=== PATIENT | male | born 1940 | race Caucasian/White ===

== ENCOUNTER → 2016-08-15 | Outpatient (CLI) | payer BC ==
[~2016-08-15] MED LIST: MULT-506 PO
[2016-08-15 12:44] LABS: BASO % 0.7 %; BASO ABS # 0.04 K/uL (0-0.2); COMPLETE YES; EOS % 10.2 %; HEMATOCRIT 44.9 % (42-52); LYMPH % 36.5 %; LYMPH ABS # 2.01 K/uL (1.2-3.4); MEAN CELL VOLUME 93.2 fL (80-100); MEAN CORPUSCULAR HEMOGLOBIN 32.6 pg (25-34); MEAN PLATELET VOLUME 10.6 fL (7.4-10.4); MONO % 4.2 %; NEUT % 48.4 %; PLATELET COUNT 239 K/uL (130-400); RED BLOOD COUNT 4.82 M/uL (4.7-6.1); WHITE BLOOD COUNT 5.51 K/uL (4.8-10.8)
[2016-08-15 14:17] LABS: ALT/SGPT 26 U/L (12-78); AST/SGOT 19 U/L (15-37); BLOOD UREA NITROGEN 15 mg/dl (7-18); BUN/CREATININE RATIO 15.5 (10-20); CARBON DIOXIDE 30 mmol/L (21-32); CHLORIDE 107 mmol/L (98-107); CHOLESTEROL 216 mg/dl (0-200); CREATININE 0.99 mg/dl (0.60-1.40); GLUCOSE 90 mg/dl (70-99); MAGNESIUM 1.9 mg/dl (1.8-2.4); POTASSIUM 4.2 mmol/L (3.5-5.1); SODIUM 141 mmol/L (136-145); TRIGLYCERIDES 50 mg/dl (0-150); VERY LOW DENSITY LIPOPROT CALC 10 mg/dl
[2016-08-15 14:25] LABS: ALB/GLOB RATIO 1.1 (0.9-2); ALKALINE PHOSPHATASE 63 U/L (45-117); CHOLESTEROL/HDL RATIO 2.3; FERRITIN 83.6 ng/ml (8.0-388.0); HDL CHOLESTEROL 96 mg/dl; LDL CHOLESTEROL CALCULATED 110 mg/dl
--- NOTE | 2016-08-19 11:17 | CODING QUERY MEDICAL NECESSITY ---
CQSUPPORTING DIAGNOSIS NEEDED A supporting diagnosis is required for the test/procedure performed on this patient in order for us to be reimbursed by the patient's insurance. Please provide a supporting diagnosis for the following test/procedure listed below next to the test name along with your signature. *If there is no additional diagnosis for this patient that would support the following test/procedure please document that below next to the test/procedure. Test(s)/Procedure(s) that require a supporting diagnosis: DOS 08/15/16 VITAMIN D TEST VITAMIN B12 TEST Provider Signature: Date: Thank you Bhavani [facility] Once completed, please kindly fax back to [phone] For questions please call [phone]
== END | disposition home or self-care (01) ==
LOC: C.LAB1850 10:53
PROVIDERS: ATTEND Nurse Practitioner Family
DX: R53.83 Other fatigue (principal); Z13.1 Encounter for screening for diabetes mellitus; Z13.220 Encounter for screening for lipoid disorders; R01.1 Cardiac murmur, unspecified; R06.09 Other forms of dyspnea

== ENCOUNTER → 2016-11-04 | Outpatient (CLI) | payer BC | END | disposition home or self-care (01) | LOC: C.LAB1850 11:14 | PROVIDERS: ATTEND Nurse Practitioner Family | DX: E55.9 Vitamin D deficiency, unspecified (principal) ==

== ENCOUNTER → 2017-02-23 | Outpatient (CLI) | payer BC ==
--- NOTE | 2017-02-23 11:36 | DIAGNOSTIC IMAGING REPORT ---
L-SPINE MIN 4 VIEWS ROUTINE HISTORY: 76 years-old Male M54.5 Low back [id number] acute low back pain without reported trauma COMPARISON: Lumbar spine radiographs 07/30/2013 TECHNIQUE: 5 views of the lumbar spine FINDINGS: 5 lumbar type vertebral segments. No acute fracture or subluxation identified. 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 Multilevel endplate spurring. Alignment is satisfactory. There is atherosclerosis of the aorta. There is a 3 mm calcification noted within left upper abdomen which is unchanged and suspicious for possible nephrolithiasis. Surgical clips are present within the pelvis. IMPRESSION: 1. No acute fracture or subluxation of the lumbar spine. 2. Multilevel endplate spurring, discogenic degenerative changes and facet arthropathy, most pronounced at L4-L5 and L5-S1. 3. 3 mm calcification of the left upper abdomen may reflect nephrolithiasis. The above report was generated using voice recognition software. It may contain grammatical, syntax or spelling errors. Electronically signed by: Feliz Mark M.D. 02/23/2017 11:34 AM Dictated Date/Time: 02/23/2017 11:32 AM
--- NOTE | 2017-02-23 11:42 | DIAGNOSTIC IMAGING REPORT ---
CERVICAL SPINE 2 OR 3 VIEWS CLINICAL HISTORY: R20.0 Left upper extremity [id number] COMPARISON STUDY: 11/19/2012 FINDINGS: The prevertebral soft tissues are normal. No fractures or traumatic subluxations are visualized. There are mild to moderate multilevel degenerative changes. No destructive lesions are visualized on conventional radiographic imaging IMPRESSION: Mild to moderate degenerative change. No acute fractures or traumatic subluxations identified. Electronically signed by: Alfonso Colon M.D. 02/23/2017 11:40 AM Dictated Date/Time: 02/23/2017 11:39 AM
== END | disposition home or self-care (01) ==
LOC: C.RAD1850 11:02
PROVIDERS: ATTEND Nurse Practitioner Family
DX: R20.0 Anesthesia of skin (principal); M54.5 Low back pain; M89.8X8 Other specified disorders of bone, other site; M51.37 Other intervertebral disc degeneration, lumbosacral region

== ENCOUNTER → 2017-08-31 | Outpatient (CLI) | payer BC ==
[2017-08-31 12:25] LABS: BASO % 0.9 %; BASO ABS # 0.05 K/uL (0-0.2); EOS % 8.7 %; EOS ABS # 0.48 K/uL (0-0.5); HEMOGLOBIN 15.5 g/dL (14.0-18.0); IG# 0.01 K/uL (0.00-0.02); LYMPH % 45.6 %; LYMPH ABS # 2.52 K/uL (1.2-3.4); MEAN CELL VOLUME 94.1 fL (80-100); MEAN CORPUSCULAR HEMOGLOBIN 32.4 pg (25-34); MEAN CORPUSCULAR HGB CONC 34.4 g/dl (32-36); MEAN PLATELET VOLUME 9.7 fL (7.4-10.4); MONO % 4.3 %; MONO ABS # 0.24 K/uL (0.11-0.59); NEUT % 40.3 %; NEUT ABS # 2.23 K/uL (1.4-6.5); PLATELET COUNT 293 K/uL (130-400); RED CELL DISTRIBUTION WIDTH CV 13.9 % (11.5-14.5); RED CELL DISTRIBUTION WIDTH SD 47.8 fL (36.4-46.3); WHITE BLOOD COUNT 5.53 K/uL (4.8-10.8)
[2017-08-31 13:01] LABS: ALBUMIN 3.8 gm/dl (3.4-5.0); ALT/SGPT 28 U/L (12-78); AST/SGOT 18 U/L (15-37); BLOOD UREA NITROGEN 13 mg/dl (7-18); CARBON DIOXIDE 30 mmol/L (21-32); CREATININE 1.08 mg/dl (0.60-1.40); GLUCOSE 96 mg/dl (70-99); POTASSIUM 4.3 mmol/L (3.5-5.1); SODIUM 138 mmol/L (136-145)
[2017-08-31 13:10] LABS: ALKALINE PHOSPHATASE 64 U/L (45-117); CHOLESTEROL 246 mg/dl (0-200); LDL CHOLESTEROL CALCULATED 139 mg/dl; TOTAL PROTEIN 7.7 gm/dl (6.4-8.2)
== END | disposition home or self-care (01) ==
LOC: C.LAB1850 10:51
PROVIDERS: ATTEND Nurse Practitioner Family
DX: Z13.1 Encounter for screening for diabetes mellitus (principal); Z13.220 Encounter for screening for lipoid disorders; R01.1 Cardiac murmur, unspecified; E55.9 Vitamin D deficiency, unspecified

== ENCOUNTER 2021-07-05 14:08 | Observation (INO) ==
[2021-07-05 16:07] LABS: Basophils # (auto) 0.02 K/uL (0-0.2); Basophils % (auto) 0.2 %; Eosinophils # (auto) 0.01 K/uL (0-0.5); Eosinophils % (auto) 0.1 %; Hematocrit (blood only) 40.6 % (42-52); Hemoglobin 14.2 g/dL (14.0-18.0); Immature Granulocytes # (auto) 0.04 K/uL (0.00-0.02); Immature Granulocytes % (auto) 0.3 %; Lymphocytes % (auto) 9.9 %; Mean Corpuscular Hemoglobin 32.3 pg (25-34); Mean Corpuscular Volume 92.5 fL (80-100); Mean Platelet Volume 9.6 fL (7.4-10.4); Monocytes # (auto) 0.34 K/uL (0.11-0.59); Monocytes % (auto) 2.8 %; Neutrophils # (auto) 10.52 K/uL (1.4-6.5); Neutrophils % (auto) 86.7 %; Platelet Count 390 K/uL (130-400); RDW Coefficient of Variation 13.1 % (11.5-14.5); RDW Standard Deviation 44.1 fL (36.4-46.3); Red Blood Count 4.39 M/uL (4.7-6.1); White Blood Count 12.13 K/uL (4.8-10.8)
[2021-07-05] MEDS ORDERED: MECLIZINE HCL 25 MG TAB PO STA (16:07)
[2021-07-05] MEDS ORDERED: ONDANSETRON INJ 2 MG/ML 2 ML VIAL IV STA (16:07)
[2021-07-05] MEDS: SODIUM CHLORIDE 0.9% 1000ML 1,000 ML IV SCH ×2 (16:17→22:23)
--- NOTE | 2021-07-05 16:23 | Emergency Department Note ---
History of Present Illness General Chief complaint: Vertigo Time Seen by Provider: 07/05/21 15:47 Source: patient and family Mode of arrival: wheelchair Limitations: no limitations History of Present Illness Provider complaint: dizziness Onset (ago): hour(s) Treatments prior to arrival: none This is an 80-year-old male who presents emergency department complaining of dizziness. Patient states he woke up abruptly this morning with dizziness. He states it is worse with turning his head and movement. He states his needed to help him get up to the bathroom and also to get dressed. states she thought perhaps he was dehydrated so he tried to drink a few glasses of water and then had nausea and subsequent vomiting. Patient denies any accompanying headache or blurred vision. He denies any recent illness including fevers or chills. No change in bowel or bladder function. He denies chest pain, palpitations, shortness of breath, and abdominal pain. He denies any recent change in medications. Patient states he has previously had small episodes of dizziness in the past, none as severe as this. Patient describes the dizziness as a movement and sense of off balance. No recent trauma or change in activity. Pt seen during a time of high acuity and national emergency pandemic while wearing PPE. Home Medications Medication Instructions Recorded Confirmed Type cholecalciferol (vitamin D3) 50 4,000 unit PO DAILY cap 05/26/20 07/05/21 History mcg (2,000 unit) capsule umeclidinium 62.5 mcg-vilanterol 1 inh INHALATION DAILY #90 ea 05/04/21 07/05/21 Rx 25 mcg/actuation powdr for inhalation (Anoro Ellipta) albuterol sulfate 90 mcg/actuation 1 - 2 puff INH Q4H PRN #8.5 g 06/14/21 07/05/21 Rx aerosol inhaler (Ventolin HFA) meclizine 25 mg tablet 25 mg PO Q6H PRN #30 tab 07/06/21 Rx ondansetron 4 mg disintegrating 4 mg PO Q8H PRN 4 Days #12 tab 07/06/21 Rx tablet Allergies Allergy/AdvReac Type Severity Reaction Status Date / Time No Known Allergies Allergy Verified 07/05/21 14:46 Past Med/Surg History Medical History (Updated 07/07/21 @ 01:23 by Katrin Ramirez DO) Gastroesophageal reflux disease Heart murmur Prostate cancer Surgical History H/O prostatectomy Family History Brother Prostate cancer Father Myocardial infarction Mother Myocardial infarction Denies family history of Colon cancer Ovarian cancer Breast cancer Social History Smoking Status: Former smoker Age Started Using Tobacco: 16; Age Quit Using Tobacco: 48; packs per day: 1; Years Smoked: 30; Second Hand Exposure: No; Hx Alcohol Use: Yes Alcohol type: wine Hx Substance Use: No Preferred Language: Mac[place] Communication Ability: Effective Visual Impairment: No Limitations Hearing Ability: Normal Trade Analyst Required: No Beliefs That Will Affect Care: None marital status: Current Living Situation: Spouse current occupational status: retired Feels Safe at Home: Yes Childhood Exposure to Second-Hand Smoke: No Dental Care, Regularly: Yes Physical Activity Frequency: 1-2 Times per Week Seatbelt Use: sometimes Sunscreen Use: No Assistive Devices: Glasses Review of Systems A total of 10 systems reviewed and were otherwise negative All systems reviewed & are unremarkable except as noted in HPI & below Physical Exam Vital Signs Vital Signs - 24 hr 07/05/21 14:20 07/05/21 14:30 07/05/21 14:40 Temperature 36.3 C L Temperature Source Oral Pulse Rate 85 98 H 78 Pulse Rate from SpO2 Sensor 86 80 Respiratory Rate 20 23 12 Respiratory Effort / Characteristics Non-Labored Spontaneous Blood Pressure 173/93 H Blood Pressure Mean 119 Blood Pressure Position Sitting Pulse Oximetry 100 100 100 Oxygen Delivery Method Room Air Room Air Room Air Sepsis Recent Fever Within 48 Hours No Sepsis New/Unexplained Change in Mental Status No Sepsis Action Taken by Nursing No Action Required 07/05/21 14:50 07/05/21 15:00 07/05/21 15:10 Temperature Temperature Source Pulse Rate 70 74 69 Pulse Rate from SpO2 Sensor 71 72 69 Respiratory Rate 13 14 14 Respiratory Effort / Characteristics Blood Pressure Blood Pressure Mean Blood Pressure Position Pulse Oximetry 100 99 98 Oxygen Delivery Method Room Air Room Air Room Air Sepsis Recent Fever Within 48 Hours Sepsis New/Unexplained Change in Mental Status Sepsis Action Taken by Nursing 07/05/21 15:20 07/05/21 15:30 07/05/21 15:40 Temperature Temperature Source Pulse Rate 75 63 70 Pulse Rate from SpO2 Sensor 74 64 71 Respiratory Rate 18 19 17 Respiratory Effort / Characteristics Blood Pressure Blood Pressure Mean Blood Pressure Position Pulse Oximetry 97 99 97 Oxygen Delivery Method Room Air Room Air Room Air Sepsis Recent Fever Within 48 Hours Sepsis New/Unexplained Change in Mental Status Sepsis Action Taken by Nursing 07/05/21 15:50 07/05/21 15:53 07/05/21 15:55 Temperature Temperature Source Pulse Rate 81 80 76 Pulse Rate from SpO2 Sensor 81 80 79 Respiratory Rate 15 14 16 Respiratory Effort / Characteristics Blood Pressure 141/78 H 141/78 H Blood Pressure Mean 99 99 Blood Pressure Position Pulse Oximetry 98 98 98 Oxygen Delivery Method Room Air Sepsis Recent Fever Within 48 Hours Sepsis New/Unexplained Change in Mental Status Sepsis Action Taken by Nursing 07/05/21 16:00 07/05/21 16:10 07/05/21 16:15 Temperature Temperature Source Pulse Rate 84 78 75 Pulse Rate from SpO2 Sensor 85 77 81 Respiratory Rate 16 16 16 Respiratory Effort / Characteristics Blood Pressure 151/99 H Blood Pressure Mean 116 Blood Pressure Position Pulse Oximetry 98 98 98 Oxygen Delivery Method Room Air Room Air Sepsis Recent Fever Within 48 Hours Sepsis New/Unexplained Change in Mental Status Sepsis Action Taken by Nursing 07/05/21 16:20 07/05/21 16:30 07/05/21 16:40 Temperature Temperature Source Pulse Rate 76 73 78 Pulse Rate from SpO2 Sensor 77 75 78 Respiratory Rate 12 13 16 Respiratory Effort / Characteristics Blood Pressure 131/76 Blood Pressure Mean 94 Blood Pressure Position Pulse Oximetry 98 98 96 Oxygen Delivery Method Room Air Sepsis Recent Fever Within 48 Hours Sepsis New/Unexplained Change in Mental Status Sepsis Action Taken by Nursing 07/05/21 16:50 07/05/21 17:00 07/05/21 17:10 Temperature Temperature Source Pulse Rate 87 79 81 Pulse Rate from SpO2 Sensor 88 78 81 Respiratory Rate 20 18 16 Respiratory Effort / Characteristics Blood Pressure 118/80 Blood Pressure Mean 92 Blood Pressure Position Pulse Oximetry 97 98 95 Oxygen Delivery Method Sepsis Recent Fever Within 48 Hours Sepsis New/Unexplained Change in Mental Status Sepsis Action Taken by Nursing 07/05/21 17:34 07/05/21 17:35 07/05/21 17:40 Temperature Temperature Source Pulse Rate 95 H 90 88 Pulse Rate from SpO2 Sensor 91 H 87 Respiratory Rate 15 18 18 Respiratory Effort / Characteristics Blood Pressure 144/77 H Blood Pressure Mean 99 Blood Pressure Position Pulse Oximetry 98 97 98 Oxygen Delivery Method Room Air Sepsis Recent Fever Within 48 Hours Sepsis New/Unexplained Change in Mental Status Sepsis Action Taken by Nursing 07/05/21 17:50 07/05/21 18:00 07/05/21 18:10 Temperature Temperature Source Pulse Rate 83 86 87 Pulse Rate from SpO2 Sensor 84 87 86 Respiratory Rate 17 17 17 Respiratory Effort / Characteristics Blood Pressure 139/74 Blood Pressure Mean 95 Blood Pressure Position Pulse Oximetry 96 98 98 Oxygen Delivery Method Room Air Room Air Room Air Sepsis Recent Fever Within 48 Hours Sepsis New/Unexplained Change in Mental Status Sepsis Action Taken by Nursing 07/05/21 18:20 07/05/21 18:30 07/05/21 18:40 Temperature Temperature Source Pulse Rate 83 87 81 Pulse Rate from SpO2 Sensor 84 88 82 Respiratory Rate 15 16 16 Respiratory Effort / Characteristics Blood Pressure Blood Pressure Mean Blood Pressure Position Pulse Oximetry 96 99 96 Oxygen Delivery Method Room Air Room Air Room Air Sepsis Recent Fever Within 48 Hours Sepsis New/Unexplained Change in Mental Status Sepsis Action Taken by Nursing 07/05/21 18:50 07/05/21 19:00 07/05/21 19:10 Temperature Temperature Source Pulse Rate 80 79 85 Pulse Rate from SpO2 Sensor 81 80 85 Respiratory Rate 13 16 20 Respiratory Effort / Characteristics Blood Pressure 138/90 Blood Pressure Mean 106 Blood Pressure Position Pulse Oximetry 95 94 96 Oxygen Delivery Method Room Air Room Air Room Air Sepsis Recent Fever Within 48 Hours Sepsis New/Unexplained Change in Mental Status Sepsis Action Taken by Nursing 07/05/21 19:11 07/05/21 19:20 07/05/21 19:30 Temperature Temperature Source Pulse Rate 83 84 78 Pulse Rate from SpO2 Sensor 82 83 79 Respiratory Rate 16 14 14 Respiratory Effort / Characteristics Blood Pressure 138/90 Blood Pressure Mean 106 Blood Pressure Position Pulse Oximetry 98 94 94 Oxygen Delivery Method Sepsis Recent Fever Within 48 Hours Sepsis New/Unexplained Change in Mental Status Sepsis Action Taken by Nursing 07/05/21 19:40 07/05/21 19:50 07/05/21 20:00 Temperature Temperature Source Pulse Rate 82 78 82 Pulse Rate from SpO2 Sensor 82 79 81 Respiratory Rate 17 17 20 Respiratory Effort / Characteristics Blood Pressure Blood Pressure Mean Blood Pressure Position Pulse Oximetry 97 98 94 Oxygen Delivery Method Sepsis Recent Fever Within 48 Hours Sepsis New/Unexplained Change in Mental Status Sepsis Action Taken by Nursing 07/05/21 20:07 07/05/21 20:10 Temperature Temperature Source Pulse Rate 84 79 Pulse Rate from SpO2 Sensor 84 80 Respiratory Rate 16 21 Respiratory Effort / Characteristics Blood Pressure 164/97 H Blood Pressure Mean 119 Blood Pressure Position Pulse Oximetry 98 98 Oxygen Delivery Method Sepsis Recent Fever Within 48 Hours Sepsis New/Unexplained Change in Mental Status Sepsis Action Taken by Nursing GENERAL: alert, well appearing, well nourished, no distress, non-toxic EYE EXAM: normal conjunctiva, PERRL and EOM's grossly intact, cannot tolerate testing for nystagmus OROPHARYNX: no exudate, no erythema, lips, buccal mucosa, and tongue normal and mucous membranes are moist NECK: supple, no nuchal rigidity, no adenopathy, non-tender LUNGS: Clear to auscultation. Normal chest wall mechanics, no w/r/r HEART: no murmurs, S1 normal and S2 normal ABDOMEN: abdomen soft, non-tender, normo-active bowel sounds, no masses, no rebound or guarding. BACK: Back is symmetrical on inspection and there is no deformity, no midline tenderness, no CVA tenderness. SKIN: no rashes and no bruising UPPER EXTREMITIES: upper extremities are grossly normal. FROM, nml pulses b/l. LOWER EXTREMITIES: No pitting edema. FROM, nml pulses b/l. NEURO EXAM: Normal sensorium, cranial nerves II-XII grossly intact, normal speech, no gross weakness of arms, no gross weakness of legs. Gross sensation intact. Course Course 182: Patient updated on all results. Magnesium and IV fluids still infusing. Will try p.o. challenge and eventually ambulatory trial. 2015: Patient unable to even stand at bedside without becoming ataxic with recurrent worsening dizziness. Do not feel patient could be safely discharged at this time as patient's describes they have many steps to go in the house. UA still pending. Administered Medications Discontinued Medications Gabapentin (Gabapentin 100 Mg Cap) 100 mg PO NOW STA Stop: 07/05/21 19:07 Last Admin: 07/05/21 19:47 Dose: 100 mg Documented by: [id number] Sodium Chloride (Nss 1000ml) 1,000 mls @ 200 mls/hr IV .Q5H CHRISTINA Stop: 08/04/21 16:14 Last Infusion: 07/05/21 22:39 Dose: 0 mls/hr Documented by: [id number] Admin: 07/05/21 22:23 Dose: 200 mls/hr Documented by: [id number] Infusion: 07/05/21 21:55 Dose: 0 mls/hr Documented by: [id number] Infusion: 07/05/21 18:12 Dose: 200 mls/hr Documented by: [id number] Infusion: 07/05/21 17:57 Dose: 0 mls/hr Documented by: [id number] Admin: 07/05/21 16:17 Dose: 200 mls/hr Documented by: [id number] Magnesium Sulfate/Dextrose (Magnesium Sulfate / D5w) 1 gm in 100 mls @ 100 mls/hr IV NOW STA Stop: 07/05/21 18:18 Last Infusion: 07/05/21 19:09 Dose: 0 mls/hr Documented by: [id number] Infusion: 07/05/21 18:12 Dose: 100 mls/hr Documented by: [id number] Infusion: 07/05/21 17:57 Dose: 0 mls/hr Documented by: [id number] Admin: 07/05/21 17:52 Dose: 100 mls/hr Documented by: [id number] Ioversol (Optiray 320 125ml) 120 ml IV ONCE ONE Stop: 07/05/21 17:40 Last Admin: 07/05/21 17:39 Dose: 120 ml Documented by: [id number] Meclizine HCl (Meclizine Hcl 25 Mg Tab) 25 mg PO NOW STA Stop: 07/05/21 16:08 Last Admin: 07/05/21 16:15 Dose: 25 mg Documented by: [id number] Ondansetron HCl (Ondansetron Inj 2 Mg/Ml 2 Ml Vial) 4 mg IV NOW STA Stop: 07/05/21 16:08 Last Admin: 07/05/21 16:16 Dose: 4 mg Documented by: [id number] Umeclidinium/Vilanterol (Umeclidinium/Vilanterol 62.5/25mcg 7 Puffs/Inhaler) 1 puffs INH DAILY CHRISTINA Stop: 08/05/21 08:59 Last Admin: 07/06/21 09:07 Dose: 1 puffs Documented by: [id number] Vitamin D (Cholecalciferol 1,000 Units 25 Mcg Tab) 4,000 units PO DAILY CHRISTINA Stop: 08/05/21 08:59 Last Admin: 07/06/21 09:07 Dose: 4,000 units Documented by: [id number] Medical Decision Making Differential Diagnosis Differential diagnosis includes etiologies such as benign positional vertigo, dehydration, hypovolemia, anemia, tumor, infection, hypoglycemia, electrolyte abnormalities, cardiac sources, intracerebral event, toxicologic, neurologic, as well as others were entertained. Medical Records Attestation: I reviewed the patient's medical records. Home Medications Current Medication List: was personally reviewed by me Laboratory Data Attestation: I reviewed the patient's lab results. Result diagrams: 07/06/21 07:08 07/06/21 07:08 Lab Results 07/05/21 07/05/21 07/05/21 Range/Units 15:50 15:50 15:50 WBC 12.13 H (4.8-10.8) K/uL RBC 4.39 L (4.7-6.1) M/uL Hgb 14.2 (14.0-18.0) g/dL Hct 40.6 L (42-52) % MCV 92.5 (80-100) fL MCH 32.3 (25-34) pg MCHC 35.0 (32-36) g/dL RDW Std Deviation 44.1 (36.4-46.3) fL RDW Coeff of Mathew 13.1 (11.5-14.5) % Plt Count 390 (130-400) K/uL MPV 9.6 (7.4-10.4) fL Immature Gran % (Auto) 0.3 % Neut % (Auto) 86.7 % Lymph % (Auto) 9.9 % [place] % (Auto) 2.8 % Eos % (Auto) 0.1 % Baso % (Auto) 0.2 % Neut # (Auto) 10.52 H (1.4-6.5) K/uL Lymph # (Auto) 1.20 (1.2-3.4) K/uL [place] # (Auto) 0.34 (0.11-0.59) K/uL Eos # (Auto) 0.01 (0-0.5) K/uL Baso # (Auto) 0.02 (0-0.2) K/uL Immature Gran # (Auto) 0.04 H (0.00-0.02) K/uL Sodium 136 (136-145) mmol/L Potassium 4.4 (3.5-5.1) mmol/L Chloride 101 (98-107) mmol/L Carbon Dioxide 27 (21-32) mmol/L Anion Gap 8 (3-11) BUN 15 (6-23) mg/dl Creatinine 0.95 (0.6-1.4) mg/dl Est Cr Clr Drug Dosing 63.9 ml/min Est GFR ( Amer) 86.1 ml/min Est GFR (Non-Af Amer) 74.2 ml/min BUN/Creatinine Ratio 15.8 (10-20) Glucose 105 H (70-99(Fasting)) mg/dl Calcium 9.9 (8.5-10.1) mg/dl Magnesium 1.6 L Cancelled (1.7-2.4) mg/dl Total Bilirubin 0.4 (0.2-1.0) mg/dl AST 14 (13-39) U/L ALT 12 (7-52) U/L Alkaline Phosphatase 68 (34-104) U/L Troponin I < 0.03 Cancelled (0-0.04) ng/ml Total Protein 7.0 (6.0-8.3) gm/dl Albumin 3.7 (3.4-5.0) gm/dl Globulin 3.3 (2.5-4.0) gm/dl Albumin/Globulin Ratio 1.1 (0.9-2) TSH (0.300-4.500) uIu/ml Urine Color Urine Appearance (Clear) Urine pH (4.5-7.5) Ur Specific [place] (1.000-1.030) Urine Protein (Negative) Urine Glucose (UA) (Negative) Urine Ketones (Negative) Urine Blood (Negative) Urine Nitrite (Negative) Urine Bilirubin (Negative) Urine Urobilinogen (Negative) Ur Leukocyte Esterase (Negative) SARS-CoV-2, RNA, NAAT (NEGATIVE) 07/05/21 07/05/21 07/05/21 Range/Units 15:50 20:17 20:25 WBC (4.8-10.8) K/uL RBC (4.7-6.1) M/uL Hgb (14.0-18.0) g/dL Hct (42-52) % MCV (80-100) fL MCH (25-34) pg MCHC (32-36) g/dL RDW Std Deviation (36.4-46.3) fL RDW Coeff of Mathwe (11.5-14.5) % Plt Count (130-400) K/uL MPV (7.4-10.4) fL Immature Gran % (Auto) % Neut % (Auto) % Lymph % (Auto) % [place] % (Auto) % Eos % (Auto) % Baso % (Auto) % Neut # (Auto) (1.4-6.5) K/uL Lymph # (Auto) (1.2-3.4) K/uL [place] # (Auto) (0.11-0.59) K/uL Eos # (Auto) (0-0.5) K/uL Baso # (Auto) (0-0.2) K/uL Immature Gran # (Auto) (0.00-0.02) K/uL Sodium (136-145) mmol/L Potassium (3.5-5.1) mmol/L Chloride (98-107) mmol/L Carbon Dioxide (21-32) mmol/L Anion Gap (3-11) BUN (6-23) mg/dl Creatinine (0.6-1.4) mg/dl Est Cr Clr Drug Dosing ml/min Est GFR ( Amer) ml/min Est GFR (Non-Af Amer) ml/min BUN/Creatinine Ratio (10-20) Glucose (70-99(Fasting)) mg/dl Calcium (8.5-10.1) mg/dl Magnesium (1.7-2.4) mg/dl Total Bilirubin (0.2-1.0) mg/dl AST (13-39) U/L ALT (7-52) U/L Alkaline Phosphatase (34-104) U/L Troponin I (0-0.04) ng/ml Total Protein (6.0-8.3) gm/dl Albumin (3.4-5.0) gm/dl Globulin (2.5-4.0) gm/dl Albumin/Globulin Ratio (0.9-2) TSH 1.050 (0.300-4.500) uIu/ml Urine Color Yellow Urine Appearance Clear (Clear) Urine pH 6.5 (4.5-7.5) Ur Specific [place] > 1.045 H (1.000-1.030) Urine Protein Negative (Negative) Urine Glucose (UA) Negative (Negative) Urine Ketones 1+ H (Negative) Urine Blood Negative (Negative) Urine Nitrite Negative (Negative) Urine Bilirubin Negative (Negative) Urine Urobilinogen Negative (Negative) Ur Leukocyte Esterase Negative (Negative) SARS-CoV-2, RNA, NAAT NEGATIVE (NEGATIVE) Imaging Data Radiologist's Impression: Chest X-Ray 07/05/21 16:07 XR chest 1V portable CLINICAL HISTORY: cough TECHNIQUE: Single frontal radiograph of the chest was obtained. Comparison: Comparison is made to chest 2 views 10/16/2020 FINDINGS: No lines and tubes are seen. The cardiomediastinal silhouette is normal. The lungs are clear. No evidence of pleural effusion or pneumothorax. IMPRESSION: No acute chest disease. ACT 112: Negative or not required by law. Electronically signed by: Julián Laguerre M.D. 07/05/2021 4:[address] 07/05/21 16:07 CT angio neck with con, CT angio head w con, CT head/brain wo con CLINICAL HISTORY: dizzy, n/v, recent neck pain TECHNIQUE: Contiguous axial CT images of the head were acquired from the base of the skull to the vertex without intravenous contrast administration. CT angiography of the head and neck was performed following intravenous administration of iodinated contrast. Coronal and sagittal MIPS were obtained from the axial data set and were submitted for review. Automated dose lowering techniques and/or adjustment according to patient size were utilized for this examination. All measurements were calculated based on NASCET criteria. Comparison: None available at the time of this dictation. FINDINGS: CT head: There is no acute intracranial hemorrhage or evidence of acute territorial infarction. No shift of the midline structures, mass effect, or extra-axial abnormalities are shown. 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 Opacification of multiple frontal, ethmoid, and maxillary air cells noted. Small thyroid nodules are seen which do not require follow-up by ACR criteria. CTA Neck: A 3 vessel aortic arch is shown. There is no significant atherosclerotic plaque in the aortic arch or the origins of the innominate, left common carotid, and left subclavian arteries. The common carotid, external carotid, cervical segments of the internal carotid arteries, and the cervical segments of the vertebral arteries are patent without hemodynamically significant stenosis. The vertebral arteries are codominant. CTA Head: The anterior and posterior cerebral circulations are patent. No hemodynamically significant stenosis, aneurysm, dissection, or arteriovenous malformation is shown. origin of the right posterior cerebral artery is seen. IMPRESSION: 1. No acute intracranial hemorrhage, evidence of acute territorial infarction, or other acute intracranial disease process. 2. No occlusion, hemodynamically significant stenosis, aneurysm, dissection, or arteriovenous malformation in the major intracranial arteries. 3. No occlusion, hemodynamically significant stenosis, or dissection in the major cervical arteries. Assessment of stenosis of the internal carotid arteries is based on NASCET criteria. ACT 112: Negative or not required by law. Electronically signed by: Julián Laguerre M.D. 07/05/2021 6:06 PM Head CTA 07/05/21 16:07 CT angio neck with con, CT angio head w con, CT head/brain wo con CLINICAL HISTORY: dizzy, n/v, recent neck pain TECHNIQUE: Contiguous axial CT images of the head were acquired from the base of the skull to the vertex without intravenous contrast administration. CT angiography of the head and neck was performed following intravenous administration of iodinated contrast. Coronal and sagittal MIPS were obtained from the axial data set and were submitted for review. Automated dose lowering techniques and/or adjustment according to patient size were utilized for this examination. All measurements were calculated based on NASCET criteria. Comparison: None available at the time of this dictation. FINDINGS: CT head: There is no acute intracranial hemorrhage or evidence of acute territorial infarction. No shift of the midline structures, mass effect, or extra-axial abnormalities are shown. Old lacunar infarct is seen in the left bas al ganglia. Opacification of multiple frontal, ethmoid, and maxillary air cells noted. Small thyroid nodules are seen which do not require follow-up by ACR criteria. CTA Neck: A 3 vessel aortic arch is shown. There is no significant atherosclerotic plaque in the aortic arch or the origins of the innominate, left common carotid, and left subclavian arteries. The common carotid, external carotid, cervical segments of the internal carotid arteries, and the cervical segments of the vertebral arteries are patent without hemodynamically signific ant stenosis. The vertebral arteries are codominant. CTA Head: The anterior and posterior cerebral circulations are patent. No hemodynamically significant stenosis, aneurysm, dissection, or arteriovenous malformation is shown. origin of the right posterior cerebral artery is seen. IMPRESSION: 1. No acute intracranial hemorrhage, evidence of acute territorial infarction, or other acute intracranial disease process. 2. No occlusion, hemodynamically significant stenosis, aneurysm, dissection, or arteriovenous malformation in the major intracranial arteries. 3. No occlusion, hemodynamically significant stenosis, or dissection in the major cervical arteries. Assessment of stenosis of the internal carotid arteries is based on NASCET criteria. ACT 112: Negative or not required by law. Electronically signed by: Julián Laguerre M.D. 07/05/2021 6:06 PM Neck CTA 07/05/21 16:07 CT angio neck with con, CT angio head w con, CT head/brain wo con CLINICAL HISTORY: dizzy, n/v, recent neck pain TECHNIQUE: Contiguous axial CT images of the head were acquired from the base of the skull to the vertex without intravenous contrast administration. CT angiography of the head and neck was performed following intravenous administration of iodinated contrast. Coronal and sagittal MIPS were obtained from the axial data set and were submitted for review. Automated dose lowering techniques and/or adjustment according to patient size were utilized for this examination. All measurements were calculated based on NASCET criteria. Comparison: None available at the time of this dictation. FINDINGS: CT head: There is no acute intracranial hemorrhage or evidence of acute territorial infarction. No shift of the midline structures, mass effect, or extra-axial abnormalities are shown. 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 Opacification of multiple frontal, ethmoid, and maxillary air cells noted. Small thyroid nodules are seen which do not require follow-up by ACR criteria. CTA Neck: A 3 vessel aortic arch is shown. There is no significant atherosclerotic plaque in the aortic arch or the origins of the innominate, left common carotid, and left subclavian arteries. The common carotid, external carotid, cervical segments of the internal carotid arteries, and the cervical segments of the vertebral arteries are patent without hemodynamically significant stenosis. The vertebral arteries are codominant. CTA Head: The anterior and posterior cerebral circulations are patent. No hemodynamically significant stenosis, aneurysm, dissection, or arteriovenous malformation is shown. origin of the right posterior cerebral artery is seen. IMPRESSION: 1. No acute intracranial hemorrhage, evidence of acute territorial infarction, or other acute intracranial disease process. 2. No occlusion, hemodynamically significant stenosis, aneurysm, dissection, or arteriovenous malformation in the major intracranial arteries. 3. No occlusion, hemodynamically significant stenosis, or dissection in the major cervical arteries. Assessment of stenosis of the internal carotid arteries is based on NASCET criteria. ACT 112: Negative or not required by law. Electronically signed by: Julián Laguerre M.D. 07/05/2021 6:06 PM ECG Data Attestation: I personally reviewed and interpreted this ECG as follows: Indication: + other Rate (beats per minute): 78 Rhythm: + normal sinus ECG Intervals/blocks: + Right Bundle branch block and + Normal QT ECG [place]: + Normal ECG ST segments: + Nonspecific ST abnormalities MDM Narrative This is an 80-year-old male who presents emergency department complaining of abrupt onset dizziness. No other focal neurologic deficits, difficulty assessing for nystagmus this patient with significant dizziness with any head movement and even with moving his eyes. Patient was afebrile and hemodynamically stable, mild hypertension was noted. Given age and comor bidities, labs are drawn and sent and patient sent for CT imaging. No evidence of acute pathology on labs or imaging. Patient was hydrated, mild hypomagnesemia was repleted, patient given Zofran as well as meclizine. Patient did report feeling improved, he was unable to stand at bedside without obvious ataxia and worsening symptoms again. Given concern for patient safety as he lives at home with his and there are multiple steps, we did discuss additional inpatient monitoring and management. Patient and verbalized understanding of all results and were in agreement with plan. Case discussed with the hospitalist. At this time I do not suspect other acute [employer] pathology. I suspect this is more likely related to BPPV at this point. An order was placed for continuous cardiac monitoring. The monitor shows a rate of _66_ with _normal sinus_ rhythm. Impression & Plan Dizziness, Hypertension, Hypomagnesemia Discharge Plan Visit Data Chief Complaint: Vertigo ED Provider: Katrin Ramirez Discharge Problem: Dizziness, Hypertension, Hypomagnesemia Patient Disposition: Admitted As Inpatient Discharge Instructions Interventions: ED Discharge Assessment Last Done: 07/05/21 22:04 Discharge Problem: Hypertension Qualifiers: Hypertension type: primary hypertension Qualified Code(s): I10 - Essential (primary) hypertension
[2021-07-05 16:44] LABS: Troponin I < 0.03 ng/ml (0-0.04)
--- NOTE | 2021-07-05 16:58 | XRay Report ---
XR chest 1V portable CLINICAL HISTORY: cough TECHNIQUE: Single frontal radiograph of the chest was obtained. Comparison: Comparison is made to chest 2 views 10/16/2020 FINDINGS: No lines and tubes are seen. The cardiomediastinal silhouette is normal. The lungs are clear. No evid ence of pleural effusion or pneumothorax. IMPRESSION: No acute chest disease. ACT 112: Negative or not required by law. Electronically signed by: Julián Laguerre M.D. 07/05/2021 4:57 PM
[2021-07-05 17:06] LABS: Alanine Aminotransferase 12 U/L (7-52); Albumin Globulin Ratio 1.1 (0.9-2); Albumin Level 3.7 gm/dl (3.4-5.0); Alkaline Phosphatase 68 U/L (34-104); Anion Gap 8 (3-11); Aspartate Aminotransferase 14 U/L (13-39); BUN Creatinine Ratio 15.8 (10-20); Bilirubin,Total 0.4 mg/dl (0.2-1.0); Blood Urea Nitrogen 15 mg/dl (6-23); Calcium 9.9 mg/dl (8.5-10.1); Carbon Dioxide 27 mmol/L (21-32); Chloride 101 mmol/L (98-107); Creatinine Clr Calc Pharmacy 63.9 ml/min; Est GFR (African American) 86.1 ml/min; Est GFR (Non-African American) 74.2 ml/min; Globulin 3.3 gm/dl (2.5-4.0); Glucose 105 mg/dl (70-99(Fasting)); Magnesium 1.6 mg/dl (1.7-2.4); Potassium 4.4 mmol/L (3.5-5.1); Sodium 136 mmol/L (136-145)
[2021-07-05] MEDS ORDERED: MAGNESIUM SULFATE / D5W 1 GM/100 ML BAG IV STA (17:19)
[2021-07-05] MEDS ORDERED: OPTIRAY 320 125ml IV ONE (17:39)
--- NOTE | 2021-07-05 18:07 | CT Scan Report ---
CT angio neck with con, CT angio head w con, CT head/brain wo con CLINICAL HISTORY: dizzy, n/v, recent neck pain TECHNIQUE: Contiguous axial CT images of the head were acquired from the base of the skull to the jd claudia without intravenous contrast administration. CT angiography of the head and neck was performed f ollowing intravenous administration of iodinated contrast. Coronal and sagittal MIPS were obtained fr om the axial data set and were submitted for review. Automated dose lowering techniques and/or adjus tment according to patient size were utilized for this examination. All measurements were calculated based on NASCET criteria. Comparison: None available at the time of this dictation. FINDINGS: CT head: There is no acute intracranial hemorrhage or evidence of acute territorial infarction. No sh ift of the midline structures, mass effect, or extra-axial abnormalities are shown. Old lacunar infar ct is seen in the left basal ganglia. Opacification of multiple frontal, ethmoid, and maxillary air c ells noted. Small thyroid nodules are seen which do not require follow-up by ACR criteria. CTA Neck: A 3 vessel aortic arch is shown. There is no significant atherosclerotic plaque in the aor tic arch or the origins of the innominate, left common carotid, and left subclavian arteries. The c ommon carotid, external carotid, cervical segments of the internal carotid arteries, and the cervical segments of the vertebral arteries are patent without hemodynamically significant stenosis. The vert ebral arteries are codominant. CTA Head: The anterior and posterior cerebral circulations are patent. No hemodynamically significan t stenosis, aneurysm, dissection, or arteriovenous malformation is shown. origin of the right p osterior cerebral artery is seen. IMPRESSION: 1. No acute intracranial hemorrhage, evidence of acute territorial infarction, or other acute intrac ranial disease process. 2. No occlusion, hemodynamically significant stenosis, aneurysm, dissection, or arteriovenous malfor mation in the major intracranial arteries. 3. No occlusion, hemodynamically significant stenosis, or dissection in the major cervical arteries. Assessment of stenosis of the internal carotid arteries is based on NASCET criteria. ACT 112: Negative or not required by law. Electronically signed by: Julián Laguerre M.D. 07/05/2021 6:06 PM
[2021-07-05] MEDS ORDERED: GABAPENTIN 100 MG CAP PO STA (19:06)
[2021-07-05 20:37] LABS: Appearance Urine Clear (Clear); Bilirubin Urine Negative (Negative); Blood Urine Negative (Negative); Color Urine Yellow; Glucose Urine UA Negative (Negative); Ketones Urine 1+ (Negative); Leukocyte Esterase Urine Negative (Negative); Nitrite Urine Negative (Negative); Protein Urine Negative (Negative); Specific Gravity Urine > 1.045 (1.000-1.030); Urobilinogen Urine Negative (Negative); pH Urine 6.5 (4.5-7.5)
--- NOTE | 2021-07-05 20:47 | History & Physical Report ---
Date of Service July 05, 2021 Assessment & Plan (1) Dizziness: Plan: Luis Kemp is a 80yo male with PMHx significant for moderate COPD (FEV1 56% in 10/2018), HTN and GERD who presented to [facility] ED on 07/05 for acute-onset vertigo. Will be admitted on observation, pending improvement in ambulatory status. Vertigo With associated nausea/vomiting. Without focal neurological deficits, and extensive head/neck imaging negative for stroke. Given severity and duration of symptoms, in addition to presence of symptoms even when lying still, suspect Meniere's disease rather than BPPV. - s/p Meclizine x1 in ED with significant improvement in symptoms - ordered Meclizine 25mg PO Q6H PRN - encourage PO intake ad stephanie - currently tolerating fluids without N/V - PRN Zofran for nausea - PT/OT evals ordered Hypomagnesemia Mg 1.6 in ED, may have contributed to vertigo. - s/p Mg 1g IV x1 in the ED - trend in the AM Moderate COPD - continue home Anoro Ellipta Heart Murmur Systolic ejection murmur at right sternal border suspicious for . S2 auscultated, and patient is asymptomatic, so suspect mild . PCP already aware. - f/u with PCP if becomes symptomatic FEN/GI: regular diet DVT Prophylaxis: SCDs Code Status: full code Disposition: med/surg, can likely go home once returns to baseline ambulatory status (2) COPD (chronic obstructive pulmonary disease): (3) Heart murmur: (4) Hypertension: History of Present Illness Chief Complaint: dizziness Primary Care Provider: Andre Butcher, III, [facility] Luis Kemp is a 80yo male with PMHx significant for moderate COPD (FEV1 56% in 10/2018), HTN and GERD who presented to [facility] ED on 07/05 for acute-onset dizziness when waking up this morning. Dizziness worsening with turning head and movement. Tried to drink water but had nausea/vomiting. Denies headache or blurred vision. No focal weakness/numbness/tingling or speech deficit. No recent illnesses. No fever/chills. No recent changes in medications. Has had several episodes of dizziness similar in character to this episode albeit not as severe or persistent. In the ED patient was hypertensive to 173/93 but afebrile and hemodynamically stable on room air. Laboratory evaluation significant for WBC 12.13 with neutrophilic predominance and mild L shift and Mg 1.6. CBC/CMP otherwise unremarkable. EKG with new RBBB but troponin negative. TSH WNL. CXR without acute cardiopulmonary process. CT head and CTA head/neck were unremarkable. Patient was given Zofran 4mg IV x1 for nausea, Meclizine 25mg PO x1 for vertigo, and Magnesium 1g IV x1. Also was given Gabapentin 100mg PO x1. Dizziness is now resolved while supine but does recur with mild severity when tries to sit up. Still cannot stand up without feeling extremely dizzy. Nausea resolved with Zofran and he has been drinking water without issues. Still does not have full appetite. Allergies Allergy/AdvReac Type Severity Reaction Status Date / Time No Known Allergies Allergy Verified 07/05/21 14:46 Home Medications Medication Instructions Recorded Confirmed Type cholecalciferol (vitamin D3) 50 4,000 unit PO DAILY cap 05/26/20 07/05/21 History mcg (2,000 unit) capsule umeclidinium 62.5 mcg-vilanterol 1 inh INHALATION DAILY #90 ea 05/04/21 07/05/21 Rx 25 mcg/actuation powdr for inhalation (Anoro Ellipta) albuterol sulfate 90 mcg/actuation 1 - 2 puff INH Q4H PRN #8.5 g 06/14/21 07/05/21 Rx aerosol inhaler (Ventolin HFA) meclizine 25 mg tablet 25 mg PO Q6H PRN #30 tab 07/06/21 Rx ondansetron 4 mg disintegrating 4 mg PO Q8H PRN 4 Days #12 tab 07/06/21 Rx tablet Past Med/Surg History Medical History (Updated 07/07/21 @ 01:23 by Katrin Ramirez DO) Gastroesophageal reflux disease Heart murmur Prostate cancer Surgical History H/O prostatectomy Family History Brother Prostate cancer Father Myocardial infarction Mother Myocardial infarction Denies family history of Colon cancer Ovarian cancer Breast cancer Social History Smoking Status: Former smoker Age Started Using Tobacco: 16; Age Quit Using Tobacco: 48; packs per day: 1; Years Smoked: 30; Second Hand Exposure: No; Hx Alcohol Use: Yes Alcohol type: wine Hx Substance Use: No Preferred Language: Scottish Communication Ability: Effective Visual Impairment: No Limitations Hearing Ability: Normal Mold Polisher Required: No Beliefs That Will Affect Care: None marital status: Current Living Situation: Spouse current occupational status: retired Feels Safe at Home: Yes Childhood Exposure to Second-Hand Smoke: No Dental Care, Regularly: Yes Physical Activity Frequency: 1-2 Times per Week Seatbelt Use: sometimes Sunscreen Use: No Assistive Devices: Glasses Review of Systems Review of Systems: All systems reviewed & are unremarkable except as noted in HPI & below Physical Exam Physical Exam: General: A&Ox3. NAD. Cooperative. HEENT: Atraumatic, normocephalic. Pulm: CTAB A&P. -wheezes, -rales, -rhonchi. Symmetrical chest rise. No increase work of breathing. No respiratory distress. Cardiac: RRR, 2/6 systolic ejection murmur best auscultated at right upper sternal border. S1/S2 auscultated. Radial pulses intact and symmetrical. No LE edema Abdominal: soft, non-tender, non-distended, BS x 4 Skin: warm, dry, no rash Neurologic: patellar DTR's 2+ bilat, sensation intact and PERRL, EOMI, accommodation nl, no face palsy, no dysarthria normal touch/pain/proprioception, CN's II-XI intact bilaterally and moves all extremities Speech / Cognition: normal speech Motor/Sensory: no tremor and no pronator drift Coordination: normal zouvqx-yb-zjer test, normal vtcw-ym-[id number] test and normal rapid alternating movements Results & Data Results & Data ([facility]) Vital Signs (Past 12 Hours) Vital Signs Temp Pulse Resp BP Pulse Ox 07/05/21 20:10 79 21 98 07/05/21 20:07 84 16 164/97 H 98 07/05/21 20:00 82 20 94 07/05/21 19:50 78 17 98 07/05/21 19:40 82 17 97 07/05/21 19:30 78 14 94 07/05/21 19:20 84 14 94 07/05/21 19:11 83 16 138/90 98 07/05/21 19:10 85 20 138/90 96 07/05/21 19:00 79 16 94 07/05/21 18:50 80 13 95 07/05/21 18:40 81 16 96 07/05/21 18:30 87 16 99 07/05/21 18:20 83 15 96 07/05/21 18:10 87 17 98 07/05/21 18:00 86 17 139/74 98 07/05/21 17:50 83 17 96 07/05/21 17:40 88 18 98 07/05/21 17:35 90 18 144/77 H 97 07/05/21 17:34 95 H 15 98 07/05/21 17:10 81 16 95 07/05/21 17:00 79 18 118/80 98 07/05/21 16:50 87 20 97 07/05/21 16:40 78 16 96 07/05/21 16:30 73 13 131/76 98 07/05/21 16:20 76 12 98 07/05/21 16:15 75 16 151/99 H 98 07/05/21 16:10 78 16 98 07/05/21 16:00 84 16 98 07/05/21 15:55 76 16 141/78 H 98 07/05/21 15:53 80 14 98 07/05/21 15:50 81 15 141/78 H 98 07/05/21 15:40 70 17 97 07/05/21 15:30 63 19 99 07/05/21 15:20 75 18 97 07/05/21 15:10 69 14 98 07/05/21 15:00 74 14 99 07/05/21 14:50 70 13 100 07/05/21 14:40 78 12 100 07/05/21 14:30 98 H 23 100 07/05/21 14:20 36.3 C L 85 20 173/93 H 100 Supervising Physician Co-Signing Physician Notes Attending addendum: I have physically seen this patient, have supervised the medical residents activities, and agree with the H&P unless as otherwise noted. Assessment and Plan: Intractable vertigo- CT head, CTA head and neck all normal Meclizine 25 mg p.o. every 6 hours as needed Zofran 4 mg IV every 6 hours as needed PT/OT assessment Hypomagnesemia- Magnesium 1.6 upon admission Replace with IV supplementation, repeat laboratories in a.m. Moderate COPD- Continue Anoro Ellipta Patient is at his baseline Remaining orders and notations as noted Resident Activity Tracking Resident Involvement: Resident Care Provided Care Provided: Adult Hospital Medicine
[2021-07-05] MEDS ORDERED: ONDANSETRON INJ 2 MG/ML 2 ML VIAL IV PRN (21:20)
[2021-07-05] MEDS ORDERED: MECLIZINE HCL 25 MG TAB PO PRN (21:22)
[2021-07-05] MEDS ORDERED: ACETAMINOPHEN 325 MG TAB PO PRN (22:21)
[2021-07-05] MEDS ORDERED: POLYETHYLENE (MIRALAX) 17 GM PACK PO PRN (22:21)
[2021-07-06 07:47] LABS: Hematocrit (blood only) 39.7 % (42-52); Hemoglobin 13.4 g/dL (14.0-18.0); Mean Corpuscular Hemoglobin 31.7 pg (25-34); Mean Corpuscular Volume 93.9 fL (80-100); Red Blood Count 4.23 M/uL (4.7-6.1); White Blood Count 8.07 K/uL (4.8-10.8)
[2021-07-06 07:48] LABS: Basophils # (auto) 0.03 K/uL (0-0.2); Basophils % (auto) 0.4 %; Eosinophils # (auto) 0.27 K/uL (0-0.5); Eosinophils % (auto) 3.3 %; Immature Granulocytes # (auto) 0.02 K/uL (0.00-0.02); Immature Granulocytes % (auto) 0.2 %; Lymphocytes # (auto) 2.41 K/uL (1.2-3.4); Lymphocytes % (auto) 29.9 %; Mean Corpuscular Hgb Conc 33.8 g/dL (32-36); Mean Platelet Volume 9.7 fL (7.4-10.4); Monocytes # (auto) 0.47 K/uL (0.11-0.59); Monocytes % (auto) 5.8 %; Neutrophils # (auto) 4.87 K/uL (1.4-6.5); Neutrophils % (auto) 60.4 %; Platelet Count 360 K/uL (130-400); RDW Coefficient of Variation 13.5 % (11.5-14.5); RDW Standard Deviation 46.1 fL (36.4-46.3)
[2021-07-06 08:10] LABS: BUN Creatinine Ratio 10.9 (10-20); Calcium 8.4 mg/dl (8.5-10.1); Creatinine Clr Calc Pharmacy 60.1 ml/min; Est GFR (African American) 79.9 ml/min; Est GFR (Non-African American) 68.9 ml/min; Magnesium 1.9 mg/dl (1.7-2.4)
--- NOTE | 2021-07-06 08:59 | Discharge Summary ---
Date of Service July 06, 2021 Admission HPI Per Admitting Provider Luis Kemp is a 80yo male with PMHx significant for moderate COPD (FEV1 56% in 10/2018), HTN and GERD who presented to [facility] ED on 07/05 for acute-onset dizziness when waking up this morning. Dizziness worsening with turning head and movement. Tried to drink water but had nausea/vomiting. Denies headache or blurred vision. No focal weakness/numbness/tingling or speech deficit. No recent illnesses. No fever/chills. No recent changes in medications. Has had several episodes of dizziness similar in character to this episode albeit not as severe or persistent. In the ED patient was hypertensive to 173/93 but afebrile and hemodynamically stable on room air. Laboratory evaluation significant for WBC 12.13 with neutrophilic predominance and mild L shift and Mg 1.6. CBC/CMP otherwise unremarkable. EKG with new RBBB but troponin negative. TSH WNL. CXR without acute cardiopulmonary process. CT head and CTA head/neck were unremarkable. Patient was given Zofran 4mg IV x1 for nausea, Meclizine 25mg PO x1 for vertigo, and Magnesium 1g IV x1. Also was given Gabapentin 100mg PO x1. Dizziness is now resolved while supine but does recur with mild severity when tries to sit up. Still cannot stand up without feeling extremely dizzy. Nausea resolved with Zofran and he has been drinking water without issues. Still does not have full appetite. Principal Diagnosis Dizziness/vertigo Discharge Exam GENERAL: A&Ox3. NAD. HEENT: PERRL, EOMI. Moist mucous membranes. CHEST/LUNGS: CTAB A/P. No crackles, wheezes, rales, rhonchi. HEART: RRR. No m/g/r. No carotid bruits. EXTREMITIES: No cyanosis, no clubbing, no edema SKIN: Warm and dry. No rashes or lesions. PSYCHIATRIC: Euthymic affect, no SI, no pressured speech, no hallucinations NEUROLOGIC: No FND. CN II-XII grossly intact. Discharge Data Allergies Allergy/AdvReac Type Severity Reaction Status Date / Time No Known Allergies Allergy Verified 07/05/21 14:46 Ordered Studies 07/05/21 16:07 CT angio head w con Stat CT angio neck with con Stat CT head/brain wo con Stat Hospital Course (1) Dizziness: Luis Kemp is a 80yo male with PMHx significant for moderate COPD (FEV1 56% in 10/2018), HTN and GERD who presented to [facility] ED on 07/05 for acute-onset vertigo. Will be admitted on observation, pending improvement in ambulatory status. Vertigo/Dizziness With associated nausea/vomiting. Without focal neurological deficits, and extensive head/neck imaging negative for stroke. Given severity and duration of symptoms, in addition to presence of symptoms even when lying still, suspect most likely labyrinthitis vs. Meniere's disease, less likely BPPV. - s/p Meclizine x1 in ED with significant improvement in symptoms -- will DC with meclizine prn - encourage PO intake ad stephanie - PRN Zofran for nausea - DC with PCP f/u for further evaluation Hypomagnesemia - resolved Mg 1.6 in ED, may have contributed to vertigo. - s/p Mg 1g IV x1 in the ED - Resolved in AM Moderate COPD - continue home Anoro Ellipta Heart Murmur Systolic ejection murmur at right sternal border suspicious for . S2 auscultated, and patient is asymptomatic, so suspect mild . PCP already aware. - f/u with PCP if becomes symptomatic FEN/GI: regular diet Disposition: DC home self-care, f/u with PCP (2) COPD (chronic obstructive pulmonary disease): (3) Heart murmur: (4) Hypertension: Total Time Total Time Spent Total Time Spent (In Minutes): <30 Discharge Plan Discharge Items Patient Disposition: Home - Self-Care Reason For Visit: VERTIGO Discharge Diagnosis: Dizziness Activity: Per Instructions section Non-emergency contact: Primary Care Provider Call non-emergency contact if: you have any medication questions and your symptoms worsen Follow-up/Referrals: Andre Butcher III, CRNP [Primary Care Provider] - 07/12/21 7:40 am (APPT WITH [facility] ROSALES ) Diet: Heart Healthy Addtl Attending Provider Instructions: You were admitted to [facility] due to acute onset of dizziness with associated nausea and vomiting. You were evaluated with head imaging, which was negative for any acute strokes. Your lab work showed a mild elevation of white blood cells, which is likely related to a stress response from your vomiting. You were given a dose of the medication called meclizine, which did help with your symptoms. You were monitored overnight and did well in terms of symptom resolution and no further complications. We consider that you likely had an episode of labyrinthitis, and inflammation of your inner ear that typically happens with upper respiratory infections even when they may be asymptomatic. We will discharge you with a few doses of meclizine, which you can take as needed for any recurrent dizziness symptoms. Additionally, we will provide some zofran in case you developed recurrent nausea or vomiting. We recommend that you follow-up with your primary care provider for discussion of your hospitalization and possible further evaluation, as it may be possible that the symptoms could be caused by something called Mnire's disease. As above, this is less likely than a simple episode of labyrinthitis which will resolve with time. If you have any new or recurrent severe symptoms, please return to the hospital for further evaluation. Pending Studies at Discharge: No Stand-Alone Forms: My [employer], Smoking Cessation Medications and DC Order Prescriptions: New meclizine 25 mg Tablet 25 mg PO Q6H PRN (Reason: dizziness) Qty: 30 RF: 0 ondansetron 4 mg tablet,disintegrating 4 mg PO Q8H PRN (Reason: nausea and vomiting) 4 Days Qty: 12 RF: 0 Continued cholecalciferol (vitamin D3) 50 mcg (2,000 unit) capsule 4,000 unit PO DAILY RF: 0 Anoro Ellipta 62.5-25 mcg/actuation blister with device 1 inh inhalation DAILY Qty: 90 RF: 3 albuterol sulfate [Ventolin HFA] 90 mcg/actuation HFA aerosol inhaler 1 - 2 puff INH Q4H PRN (Reason: shortness of breath) Qty: 8.5 RF: 1 Discharge Orders: Discharge Order (Routine); Ordered 07/06/21 Ordered By: Gonzalez Myles/Other Patient Handouts: Labyrinthitis Admission Data Admit Date/Time: 07/05/21 21:20 Attending Provider: Quique Díaz Admit Provider: Ulices Huber Primary Care Provider: Andre Butcher III Other Interventions: Discharge Summary Assessment (RN) Last Done: 07/06/21 11:34 Supervising Physician Co-Signing Physician Notes I personally examined the patient and verified all bassett points of history and exam, discussed case, and agree with decision making with Dr Guerin. Feeling better with meclizine. Feeling up to going home. No other acute complaints. No tinnitus or hearing loss Vitals noted, in general he is awake and alert pleasant no distress. HEENT normocephalic atraumatic mucous membranes moist. Breathing unlabored no accessory muscle use good effort. Skin shows no rashes no pallor or icterus. Neuro without focal deficits. Stable gait. Vertigoappears to be viral labyrinthitis most likely. Safe/stable for home. Meclizine as needed. Outpatient follow-up Resident Activity Tracking Resident Involvement: Resident Care Provided Care Provided: Adult Hospital Medicine
[2021-07-06] MEDS ORDERED: UMECLIDINIUM/VILANTEROL 62.5/25MCG 7 PUFFS/INHALER INH SCH (09:00)
[2021-07-06] MEDS ORDERED: CHOLECALCIFEROL 1,000 UNITS 25 MCG TAB PO SCH (09:00)
--- NOTE | 2021-07-06 13:01 | Electrocardiogram Report ---
Test Reason : Blood Pressure : / mmHG Vent. Rate : 078 BPM Atrial Rate : 078 BPM P-R Int : 130 ms QRS Dur : 132 ms QT Int : 424 ms P-R-T Axes : 058 021 033 degrees QTc Int : 483 ms Poor data quality, interpretation may be adversely affected Normal sinus rhythm Right bundle branch block Abnormal ECG When compared with ECG of 20-APR-2010 09:42, Premature ventricular complexes are no longer Present Right bundle branch block is now Present Confirmed by Subhash Gutierrez ([id number]) on 07/06/2021 1:01:07 PM Referred By: REFERRED SELF Confirmed By:Subhash Gutierrez
--- NOTE | 2021-07-06 18:22 | Billing Data ---
Date of Service July 06, 2021 Coding Level of Care Code 82262 OBS Care - Discharge
--- NOTE | 2021-07-07 03:45 | Billing Data ---
Date of Service July 07, 2021 Coding Level of Care Code INT OBSERVATION CARE 70M LVL 3
== END 2021-07-06 14:20 | disposition home or self-care (01) ==
LOC: ED 14:08 → 3E 14:08 → SUATTDRO 21:20 → 3E 22:04

== ENCOUNTER 2022-07-28 09:41 | Inpatient (IN) ==
[2022-07-28] MEDS ORDERED: methylPREDNISolone 125 MG/2 ML VIAL IV STA (09:49)
[2022-07-28] MEDS ORDERED: MAGNESIUM SULFATE / D5W 1 GM/100 ML BAG IV STA (09:50)
[2022-07-28] MEDS ORDERED: ALBUT/IPRATROP 3MG/0.5MG NEB 3 ML VIAL NEB ONE (09:51)
[2022-07-28] MEDS ORDERED: SODIUM CHLORIDE 0.9% 1000ML 1,000 ML IV SCH (10:00)
[2022-07-28 10:17] LABS: Base Excess VBG 3.3 mEq/L; HCO3 VBG 28 mmol/L; Oxygen Saturation VBG < 60.0 %; PCO2 VBG 41 mmHg (38-50); PO2 VBG 31 mmHg; pH VBG 7.44 (7.36-7.41)
--- NOTE | 2022-07-28 10:17 | XRay Report ---
XR chest 1V portable CLINICAL HISTORY: Chest pain, nonspecific COMPARISON STUDY: Chest radiograph July 05, 2021. FINDINGS: Lung volumes are normal. Lungs are clear. There is no pneumothorax or pleural effusion. Car diac size is normal. Mediastinal contours are normal. There is no evidence for pulmonary edema. IMPRESSION: No acute cardiopulmonary findings. ACT 112: Negative or not required by law. Electronically signed by: Agapito Calhoun M.D. 07/28/2022 10:15 AM
[2022-07-28 10:23] LABS: Hematocrit (blood only) 46.3 % (42.0-52.0); Mean Corpuscular Hemoglobin 32.1 pg (25.0-34.0); Mean Corpuscular Hgb Conc 34.6 g/dL (32.0-36.0); Mean Platelet Volume 9.8 fL (9.4-12.4); Platelet Count 284 K/uL (130-400); RDW Coefficient of Variation 13.5 % (11.5-14.5); RDW Standard Deviation 45.6 fL (36.4-46.3); Red Blood Count 4.98 M/uL (4.70-6.10); White Blood Count 7.36 K/ul (4.8-10.8)
--- NOTE | 2022-07-28 10:35 | Emergency Department Note ---
Impression & Plan Acute respiratory failure with hypoxia, Acute exacerbation of chronic obstructive airways disease ED Provider Note ED Provider Note NAME: JEFFERSON ROLLINS AGE:81 SEX: Male : 1940 ARRIVES VIA: EMS INFORMANT: Patient ED PROVIDER(s): Katrin Ramirez DO CHIEF COMPLAINT: Shortness of breath HPI: This is an 81-year-old male presents emerged department via EMS due to severe shortness of breath. History from EMS initially as patient had too much increased work of breathing or respiratory distress to provide anything beyond yes no answers. Patient denied any pain. He stated he was a prior smoker. Denied any history of congestive heart failure. EMS reports patient with significant shortness of breath despite using his home albuterol inhaler. He was placed on CPAP and did slowly begin to have improvement by the time of arrival here. PAST MEDICAL HISTORY:See Below PAST SURGICAL HISTORY:See Below FAMILY HISTORY:See Below SOCIAL HISTORY:See Below HOME MEDICATIONS:See Below ALLERGIES:See Below VITALS:See Below PHYSICAL EXAMINATION: GENERAL: alert, unwell appearing, well nourished, moderate distress, CPAP in place EYE EXAM: normal conjunctiva, PERRL and EOM's grossly intact OROPHARYNX: no exudate, no erythema, lips, buccal mucosa, and tongue normal and mucous membranes are moist NECK: supple, no nuchal rigidity, no adenopathy, non-tender LUNGS: Normal chest wall mechanics, increased work of breathing, tachypnea, bilateral wheezes noted both with inspiration and expiration, no rhonchi or rales HEART: no murmurs, S1 normal and S2 normal ABDOMEN: abdomen soft, non-tender, normo-active bowel sounds, no masses, no rebound or guarding. BACK: Back is symmetrical on inspection and there is no deformity, no midline tenderness, no CVA tenderness. SKIN: no rashes, petechiae, orbruising UPPER EXTREMITIES: upper extremities are grossly normal. FROM, nml pulses b/l. LOWER EXTREMITIES: No pitting edema. FROM, nml pulses b/l. NEURO EXAM: Normal sensorium, cranial nerves II-XII grossly intact, normal speech, no facial droop,nogross weakness of arms, no gross weakness of legs. Gross sensation intact. No ataxia. Vital Signs: reviewed and remarkable Differential Diagnosis: Differential diagnoses includes but is not limited to pneumonia, bronchitis, COPD/Asthma exacerbation, pneumothorax, pulmonary embolism, congestive heart failure, acute coronary syndrome MEDICAL DECISION MAKING: This is an 81-year-old male brought in by EMS with significant respiratory distress on CPAP. Patient with history of COPD. Patient initially unable to provide history due to increased work of breathing. Labs drawn and sent, IV established, EKG performed and interpreted by me at bedside, chest x-ray perfo rmed and interpreted by me at bedside, and RT transition the patient immediately to our BiPAP and begin a continuous nebulizer treatment. Patient additionally given IV Solu-Medrol, magnesium, and antibiotics. Chest x-ray without obvious infiltrate or pulmonary edema. EKG reassuring. Patient slowly improved with these treatments while being monitored in the emergency room. He was rechecked frequently due to his condition and concern for risk of deterioration. As patient began to improve he was able to speak in short phrases and then eventually longer sentences. did present to bedside and stated he had not recently been ill. She states he was using his inhaler more this morning al though he seemed to just suddenly become more acutely short of breath. She denies noting any prior similar episodes. Patient's labs reassuring. After 's description of more abrupt onset of symptoms, CT of the chest was also added, no PE was noted. Case discussed with hospitalist team for additional evaluation and management. Patient was able to be slowly weaned off of BiPAP in the emergency room just prior to being transitioned upstairs. Consultation(s): 1210: Discussed with SUZANNA Huerta with [facility] hospitalist team. ER Treatment Provided: See below Diagnostics Interpreted By Me: -ECG: Sinus tachycardia at 124, right bundle branch block, normal QTc, normal axis, nonspecific ST/T wave changes -Cardiac Monitoring: An order was placed for continuous cardiac monitoring. The monitor shows a rate of 102 with sinus tachycardia rhythm. -Laboratory studies: As stated above and show below. -Imaging studies: X-ray Chest: A single view study of the chest was reviewed and was negative for cardiomegaly, focal infiltrate, effusion, pulmonary edema, or wide mediastinum. Triage Nursing Note Reviewed Prior/Outside Records Reviewed Procedures: [] Critical Care: Critical care of 46 min performed to assess and manage high likelihood of life- threatening acute hypoxic respiratory failure, involving labs and imaging perfor med with assessment to evaluate acute hypoxic respiratory failure diagnosis with frequent reassessment. This time includes bedside time, treatment discussions with patient/family/consultants, documentation time and excludes procedure time. Past Med/Surg History Medical History Dizziness Gastroesophageal reflux disease Heart murmur Prostate cancer Surgical History H/O prostatectomy 2006 in [place] Family History Brother Prostate cancer Father Myocardial infarction Heart disease Mother Myocardial infarction Diabetes Denies family history of Colon cancer Ovarian cancer Breast cancer Social History Smoking Status: Former smoker Age Started Using Tobacco: 16; Age Quit Using Tobacco: 48; packs per day: 1; Second Hand Exposure: No; Do You Dip or Chew Tobacco: No; Tobacco Cessation Education Requested by Patient: No Hx Alcohol Use: Yes Alcohol type: wine Alcohol Intake Frequency: 4 or More x per/Week Alcohol Intake Frequency Comment: x2 daily Hx Substance Use: No Preferred Language: Divehi Communication Ability: Effective Visual Impairment: No Limitations Hearing Ability: Normal Freight Sorter Required: No Beliefs That Will Affect Care: None marital status: Current Living Situation: Spouse current occupational status: retired How many Children do You have: 4 Other Information That Helps Us Care for You: No Feels Safe at Home: Yes Safety Concerns: Feels Safe At This Time Childhood Exposure to Second-Hand Smoke: No Diet Comment: Mediterranean during the past year weight has: remained stable Dental Care, Regularly: Yes Physical Activity Frequency: 1-2 Times per Week Seatbelt Use: sometimes Sunscreen Use: No Assistive Devices: None Allergies Allergies Allergy/AdvReac Type Severity Reaction Status Date / Time No Known Allergies Allergy Verified 07/19/22 12:03 Home Meds Previous Rx's Medication Instructions Recorded umeclidinium 62.5 mcg-vilanterol 1 inh inhalation DAILY #90 ea 04/15/22 25 mcg/actuation powdr for inhalation (Anoro Ellipta) albuterol sulfate 90 mcg/actuation 1 - 2 puff inhalation Q4H PRN 07/05/22 aerosol inhaler (Ventolin HFA) shortness of breath #8.5 grams Results & Data (ED) Vital Signs Vital Signs - 24 hr 07/28/22 09:52 07/28/22 09:57 07/28/22 09:52 Temperature 36.7 C Temperature Source Oral Pulse Rate 120 H 124 H Pulse Rate [Apical] Pulse Rate from SpO2 Sensor Respiratory Rate 24 Respiratory Effort / Characteristics Respiratory Depth Blood Pressure 192/102 H Blood Pressure [Left Arm] Blood Pressure Mean 132 Blood Pressure Mean [Left Arm] Pulse Oximetry 98 100 Oxygen Delivery Method BiPAP CPAP BiPAP Fraction of Inspired Oxygen Sepsis Recent Fever Within 48 Hours No Sepsis New/Unexplained Change in Mental Status No Sepsis Action Taken by Nursing Previously Notified 07/28/22 10:16 07/28/22 10:21 07/28/22 10:21 Temperature Temperature Source Pulse Rate 118 H Pulse Rate [Apical] 109 H 124 H Pulse Rate from SpO2 Sensor Respiratory Rate 22 20 22 Respiratory Effort / Characteristics Spontaneous Accessory Muscle Use Short of Breath Tripoding Spontaneous Short of Breath Respiratory Depth Deep Blood Pressure Blood Pressure [Left Arm] Blood Pressure Mean Blood Pressure Mean [Left Arm] Pulse Oximetry 99 100 99 Oxygen Delivery Method BiPAP BiPAP Fraction of Inspired Oxygen 30 30 Sepsis Recent Fever Within 48 Hours Sepsis New/Unexplained Change in Mental Status Sepsis Action Taken by Nursing 07/28/22 10:39 07/28/22 11:00 07/28/22 11:00 Temperature Temperature Source Pulse Rate 117 H Pulse Rate [Apical] 107 H Pulse Rate from SpO2 Sensor 118 H Respiratory Rate 18 18 Respiratory Effort / Characteristics Respiratory Depth Blood Pressure 135/104 H Blood Pressure [Left Arm] 166/91 H Blood Pressure Mean 114 Blood Pressure Mean [Left Arm] 116 Pulse Oximetry 99 100 Oxygen Delivery Method BiPAP BiPAP Fraction of Inspired Oxygen Sepsis Recent Fever Within 48 Hours Sepsis New/Unexplained Change in Mental Status Sepsis Action Taken by Nursing 07/28/22 11:16 07/28/22 11:30 07/28/22 11:30 Temperature Temperature Source Pulse Rate 106 H Pulse Rate [Apical] Pulse Rate from SpO2 Sensor 106 H Respiratory Rate 14 Respiratory Effort / Characteristics Respiratory Depth Blood Pressure 135/97 Blood Pressure [Left Arm] Blood Pressure Mean 109 Blood Pressure Mean [Left Arm] Pulse Oximetry 100 Oxygen Delivery Method BiPAP BiPAP Fraction of Inspired Oxygen Sepsis Recent Fever Within 48 Hours Sepsis New/Unexplained Change in Mental Status Sepsis Action Taken by Nursing 07/28/22 12:00 07/28/22 12:00 Temperature Temperature Source Pulse Rate 104 H Pulse Rate [Apical] Pulse Rate from SpO2 Sensor 104 H Respiratory Rate 15 Respiratory Effort / Characteristics Respiratory Depth Blood Pressure 128/91 Blood Pressure [Left Arm] Blood Pressure Mean 103 Blood Pressure Mean [Left Arm] Pulse Oximetry 100 Oxygen Delivery Method BiPAP Fraction of Inspired Oxygen Sepsis Recent Fever Within 48 Hours Sepsis New/Unexplained Change in Mental Status Sepsis Action Taken by Nursing Laboratory Data 07/28/22 10:00 07/28/22 10:00 Lab Results 07/28/22 07/28/22 07/28/22 Range/Units 10:00 10:00 10:00 WBC 7.36 (4.8-10.8) K/ul RBC 4.98 (4.70-6.10) M/uL Hgb 16.0 (14.0-18.0) g/dl Hct 46.3 (42.0-52.0) % MCV 93.0 (80.0-100.0) fL MCH 32.1 (25.0-34.0) pg MCHC 34.6 (32.0-36.0) g/dL RDW Std Deviation 45.6 (36.4-46.3) fL RDW Coeff of Mathew 13.5 (11.5-14.5) % Plt Count 284 (130-400) K/uL MPV 9.8 (9.4-12.4) fL Neutrophils % (Manual) 22 % Lymphocytes % (Manual) 24 % Monocytes % (Manual) 4 % Eosinophils % (Manual) 9 % Basophils % (Manual) 1 % Neutrophils # (Manual) 1.62 (1.40-6.50) K/uL Total Absolute Neuts 1.62 (1.4-6.5) K/uL Lymphocytes # (Manual) 1.77 (1.2-3.4) K/uL Total Abs Lymphocytes 4.64 H (1.2-3.4) K/uL Monocytes # (Manual) 0.29 (0.11-0.59) K/uL Eosinophils # (Manual) 0.66 H (0-0.50) K/uL Basophils # (Manual) 0.07 (0-0.2) K/uL Large Granular Lymphs 39 % # Lrg Granular Lymphs 2.87 K/uL Blood Smear Review RBC Morphology Unremarkable PT 11.6 (9.0-12.0) Seconds INR 1.1 (0.9-1.1) APTT 25.6 (21.0-31.0) Seconds PTT Ratio 0.9 VBG pH (7.36-7.41) VBG pCO2 (38-50) mmHg VBG pO2 mmHg VBG HCO3 mmol/L VBG O2 Saturation % VBG Base Excess mEq/L Sodium 138 (136-145) mmol/L Potassium 3.7 (3.5-5.1) mmol/L Chloride 103 (98-107) mmol/L Carbon Dioxide 27 (21-32) mmol/L Anion Gap 8 (3-11) BUN 13 (6-23) mg/dl Creatinine 1.08 (0.6-1.4) mg/dl Est Cr Clr Drug Dosing 48.5 ml/min Est GFR ( Amer) 73.2 ml/min Est GFR (Non-Af Amer) 63.1 ml/min BUN/Creatinine Ratio 12.0 (10-20) Glucose 144 H (70-99(Fasting)) mg/dl Calcium 9.4 (8.6-10.3) mg/dl Magnesium 1.7 (1.7-2.4) mg/dl Total Bilirubin (0.2-1.0) mg/dl Direct Bilirubin (0-0.2) mg/dl AST (13-39) U/L ALT (7-52) U/L Alkaline Phosphatase (34-104) U/L Troponin I High Sens 5.7 (0-20) pg/ml B-Natriuretic Peptide (0-100) pg/ml Total Protein (6.0-8.3) gm/dl Albumin (3.4-5.0) gm/dl Lipase 12 (11-82) U/L SARS-CoV-2 (PCR) (Negative) Influenza Type A (PCR) (Neg) Influenza Type B (PCR) (Neg) RSV (RT-PCR) (Neg) 07/28/22 07/28/22 07/28/22 Range/Units 10:00 10:00 10:02 WBC (4.8-10.8) K/ul RBC (4.70-6.10) M/uL Hgb (14.0-18.0) g/dl Hct (42.0-52.0) % MCV (80.0-100.0) fL MCH (25.0-34.0) pg MCHC (32.0-36.0) g/dL RDW Std Deviation (36.4-46.3) fL RDW Coeff of Mathew (11.5-14.5) % Plt Count (130-400) K/uL MPV (9.4-12.4) fL Neutrophils % (Manual) % Lymphocytes % (Manual) % Monocytes % (Manual) % Eosinophils % (Manual) % Basophils % (Manual) % Neutrophils # (Manual) (1.40-6.50) K/uL Total Absolute Neuts (1.4-6.5) K/uL Lymphocytes # (Manual) (1.2-3.4) K/uL Total Abs Lymphocytes (1.2-3.4) K/uL Monocytes # (Manual) (0.11-0.59) K/uL Eosinophils # (Manual) (0-0.50) K/uL Basophils # (Manual) (0-0.2) K/uL Large Granular Lymphs % # Lrg Granular Lymphs K/uL Blood Smear Review RBC Morphology PT (9.0-12.0) Seconds INR (0.9-1.1) APTT (21.0-31.0) Seconds PTT Ratio VBG pH 7.44 H (7.36-7.41) VBG pCO2 41 (38-50) mmHg VBG pO2 31 mmHg VBG HCO3 28 mmol/L VBG O2 Saturation < 60.0 % VBG Base Excess 3.3 mEq/L Sodium (136-145) mmol/L Potassium (3.5-5.1) mmol/L Chloride (98-107) mmol/L Carbon Dioxide (21-32) mmol/L Anion Gap (3-11) BUN (6-23) mg/dl Creatinine (0.6-1.4) mg/dl Est Cr Clr Drug Dosing ml/min Est GFR ( Amer) ml/min Est GFR (Non-Af Amer) ml/min BUN/Creatinine Ratio (10-20) Glucose (70-99(Fasting)) mg/dl Calcium (8.6-10.3) mg/dl Magnesium (1.7-2.4) mg/dl Total Bilirubin 0.7 (0.2-1.0) mg/dl Direct Bilirubin 0.1 (0-0.2) mg/dl AST 22 (13-39) U/L ALT 17 (7-52) U/L Alkaline Phosphatase 68 (34-104) U/L Troponin I High Sens (0-20) pg/ml B-Natriuretic Peptide (0-100) pg/ml Total Protein 7.3 (6.0-8.3) gm/dl Albumin 4.2 (3.4-5.0) gm/dl Lipase (11-82) U/L SARS-CoV-2 (PCR) NEGATIVE (Negative) Influenza Type A (PCR) Negative (Neg) Influenza Type B (PCR) Negative (Neg) RSV (RT-PCR) Negative (Neg) 07/28/22 Range/Units 12:07 WBC (4.8-10.8) K/ul RBC (4.70-6.10) M/uL Hgb (14.0-18.0) g/dl Hct (42.0-52.0) % MCV (80.0-100.0) fL MCH (25.0-34.0) pg MCHC (32.0-36.0) g/dL RDW Std Deviation (36.4-46.3) fL RDW Coeff of Mathew (11.5-14.5) % Plt Count (130-400) K/uL MPV (9.4-12.4) fL Neutrophils % (Manual) % Lymphocytes % (Manual) % Monocytes % (Manual) % Eosinophils % (Manual) % Basophils % (Manual) % Neutrophils # (Manual) (1.40-6.50) K/uL Total Absolute Neuts (1.4-6.5) K/uL Lymphocytes # (Manual) (1.2-3.4) K/uL Total Abs Lymphocytes (1.2-3.4) K/uL Monocytes # (Manual) (0.11-0.59) K/uL Eosinophils # (Manual) (0-0.50) K/uL Basophils # (Manual) (0-0.2) K/uL Large Granular Lymphs % # Lrg Granular Lymphs K/uL Blood Smear Review RBC Morphology PT (9.0-12.0) Seconds INR (0.9-1.1) APTT (21.0-31.0) Seconds PTT Ratio VBG pH (7.36-7.41) VBG pCO2 (38-50) mmHg VBG pO2 mmHg VBG HCO3 mmol/L VBG O2 Saturation % VBG Base Excess mEq/L Sodium (136-145) mmol/L Potassium (3.5-5.1) mmol/L Chloride (98-107) mmol/L Carbon Dioxide (21-32) mmol/L Anion Gap (3-11) BUN (6-23) mg/dl Creatinine (0.6-1.4) mg/dl Est Cr Clr Drug Dosing ml/min Est GFR ( Amer) ml/min Est GFR (Non-Af Amer) ml/min BUN/Creatinine Ratio (10-20) Glucose (70-99(Fasting)) mg/dl Calcium (8.6-10.3) mg/dl Magnesium (1.7-2.4) mg/dl Total Bilirubin (0.2-1.0) mg/dl Direct Bilirubin (0-0.2) mg/dl AST (13-39) U/L ALT (7-52) U/L Alkaline Phosphatase (34-104) U/L Troponin I High Sens (0-20) pg/ml B-Natriuretic Peptide 23 (0-100) pg/ml Total Protein (6.0-8.3) gm/dl Albumin (3.4-5.0) gm/dl Lipase (11-82) U/L SARS-CoV-2 (PCR) (Negative) Influenza Type A (PCR) (Neg) Influenza Type B (PCR) (Neg) RSV (RT-PCR) (Neg) Administered Medications Albuterol (Albut/Ipratrop 3mg/0.5mg Neb 3 Ml Vial) 3 ml NEB QIDR CHRISTINA; Protocol Stop: 08/27/22 14:59 Last Admin: 07/28/22 14:29 Dose: 3 ml Documented By: AA Enoxaparin Sodium (Enoxaparin Inj 40 Mg/0.4 Ml Syr) 40 mg SQ Q24H CHRISTINA Stop: 08/27/22 14:59 Last Admin: 07/28/22 15:43 Dose: 40 mg Documented By: MPC Discontinued Medications Albuterol (Albut/Ipratrop 3mg/0.5mg Neb 3 Ml Vial) 12 ml NEB ONE ONE; Protocol Stop: 07/28/22 09:52 Last Admin: 07/28/22 10:24 Dose: 12 ml Documented By: RAOUL Famotidine (Famotidine 20mg/5ml Iv Push) 20 mg IV ONE STA Stop: 07/28/22 12:53 Last Admin: 07/28/22 13:19 Dose: 20 mg Documented By: JAMI Magnesium Sulfate/Dextrose (Magnesium Sulfate / D5w) 1 gm in 100 mls @ 100 mls/hr IV NOW STA Stop: 07/28/22 10:49 Last Infusion: 07/28/22 11:07 Dose: 0 mls/hr Documented By: Admin: 07/28/22 10:07 Dose: 100 mls/hr Documented By: AMARA Sodium Chloride (Nss 1000ml) 1,000 mls @ 125 mls/hr IV .Q8H CHRISTINA Stop: 08/27/22 09:59 Last Infusion: 07/28/22 13:02 Dose: 0 mls/hr Documented By: Admin: 07/28/22 10:08 Dose: 125 mls/hr Documented By: AMARA Doxycycline Hyclate 100 mg/ (Dextrose) 110 mls @ 50 mls/hr IV NOW STA Stop: 07/28/22 13:21 Last Infusion: 07/28/22 13:44 Dose: 0 mls/hr Documented By: Admin: 07/28/22 11:32 Dose: 50 mls/hr Documented By: JAMI Ioversol (Optiray 320 500ml) 120 ml IV ONCE ONE Stop: 07/28/22 13:04 Last Admin: 07/28/22 13:03 Dose: 120 ml Documented By: ROBLES Methylprednisolone (Methylprednisolone 125 Mg/2 Ml Vial) 125 mg IV NOW STA Stop: 07/28/22 09:50 Last Admin: 07/28/22 10:07 Dose: 125 mg Documented By: AMARA Imaging Data Radiologist's Impression: Chest X-Ray 07/28/22 09:45 XR chest 1V portable CLINICAL HISTORY: Chest pain, nonspecific COMPARISON STUDY: Chest radiograph July 05, 2021. FINDINGS: Lung volumes are normal. Lungs are clear. There is no pneumothorax or pleural effusion. Cardiac size is normal. Mediastinal contours are normal. There is no evidence for pulmonary edema. IMPRESSION: No acute cardiopulmonary findings. ACT 112: Negative or not required by law. Electronically signed by: Agapito Calhoun M.D. 07/28/2022 10:15 AM Chest CTA 07/28/22 12:12 CHEST CTA for PULMONARY ARTERIES CT DOSE: 317.99 mGy.cm HISTORY: Respiratory distress. TECHNIQUE: Multiaxial CT images of the chest were performed following the intr avenous administration of contrast to evaluate the pulmonary arteries. Maximal intensity projection images were also obtained. A dose lowering technique was utilized adhering to the principles of ALARA. COMPARISON STUDY: None. FINDINGS: Limited views of the upper abdomen demonstrate normal liver, spleen, and adrenal glands. Partially visualized bilateral renal cysts are noted. There are small hiatus hernia. A few thyroid nodules with the largest on the right measuring 1.2 cm. These do not meet CT criteria for follow-up. Normal caliber esophagus. No mediastinal or hilar lymphadenopathy. The heart is normal in size. Trace anterior pericardial effusion. No pleural effusions. No suspicious lytic or blastic osseous lesions. Mild respiratory motion artifact. The central airways are patent. No pneumothorax. Mild emphysema. A 4 mm subpleural nodule within the right lung apex on image 274. There are 2 groundglass nodules within the right upper lobe on images 249 and 232 with the largest measuring 8 mm. Small cystic focus with adjacent groundglass density within the right lower lobe in image 150 measuring 1.6 cm. These may represent small foci of inflammatory/infectious change. However, [address] follow-up recommended to ensure stability/resolution. Otherwise, no focal lung consolidations to suggest a pneumonia. No evidence for an aortic dissection. Nondiagnostic evaluation of the bilateral lower lobe subsegmental pulmonary emboli due to the respiratory motion artifact. Otherwise, the remaining arteries show no filling defects to suggest a pulmonary embolus. IMPRESSION: 1. No evidence for a pulmonary embolus. 2. Mild emphysema. 3. A few subcentimeter nodules within the right upper lobe as described above. [address] follow-up recommended to ensure stability/resolution. 4. There is also a 1.6 cm cystic focus within the adjacent groundglass density within the right lower lobe. Attention at follow-up also recommended. 5. Otherwise, no focal lung consolidations identified. ACT 112: Negative or not required by law. Electronically signed by: Russ Nolasco M.D. 07/28/2022 1:20 PM Discharge Plan Visit Data Chief Complaint: Shortness of Breath/Dyspnea Stated Complaint: RESP. DISTRESS ED Provider: Katrin Ramirez Discharge Problem: Acute respiratory failure with hypoxia, Acute exacerbation of chronic obstructive airways disease Patient Disposition: Admitted As Inpatient Discharge Instructions Interventions: ED Discharge Assessment Last Done: 07/28/22 13:53
[2022-07-28 10:39] LABS: Calcium 9.4 mg/dl (8.6-10.3); Creatinine Clr Calc Pharmacy 48.5 ml/min; Est GFR (African American) 73.2 ml/min; Est GFR (Non-African American) 63.1 ml/min; Magnesium 1.7 mg/dl (1.7-2.4); Potassium 3.7 mmol/L (3.5-5.1)
[2022-07-28 10:45] LABS: Troponin I High Sensitivity 5.7 pg/ml (0-20)
[2022-07-28 10:55] LABS: INR 1.1 (0.9-1.1); Partial Thromboplastin Ratio 0.9; Partial Thromboplastin Time 25.6 Seconds (21.0-31.0); Prothrombin Time 11.6 Seconds (9.0-12.0)
[2022-07-28] MEDS ORDERED: DOXYCYCLINE HYCLATE 100 MG in DEXTROSE 5% 100 ML IV STA (11:10)
[2022-07-28 11:17] LABS: Influenza A virus by PCR Negative (Neg); Influenza B virus by PCR Negative (Neg); RSV by PCR Negative (Neg); SARS CoV2 RNA(COVID-19) Ceph NEGATIVE (Negative)
[2022-07-28 11:50] LABS: ALC (manual) 4.64 K/uL (1.2-3.4); ANC (manual) 1.62 K/uL (1.4-6.5); Basophils # (manual) 0.07 K/uL (0-0.2); Basophils % (manual) 1 %; Eosinophils # (manual) 0.66 K/uL (0-0.50); Eosinophils % (manual) 9 %; Large Granular Lymph # (manua 2.87 K/uL; Large Granular Lymph % (manual) 39 %; Lymphocytes # (manual) 1.77 K/uL (1.2-3.4); Lymphocytes % (manual) 24 %; Monocytes # (manual) 0.29 K/uL (0.11-0.59); Monocytes % (manual) 4 %; Neutrophils # (manual) 1.62 K/uL (1.40-6.50); Neutrophils % (manual) 22 %; RBC Morphology Unremarkable
[2022-07-28 12:01] LABS: Albumin Level 4.2 gm/dl (3.4-5.0); Bilirubin Direct 0.1 mg/dl (0-0.2); Bilirubin,Total 0.7 mg/dl (0.2-1.0); Total Protein 7.3 gm/dl (6.0-8.3)
--- NOTE | 2022-07-28 12:09 | History & Physical Report ---
Date of Service July 28, 2022 Assessment & Plan (1) Acute respiratory failure with hypoxia: Plan: -Admit to med/tele -The patient is currently afebrile, hemodynamically stable, and stable on Bipap -The patient developed a sudden onset of severe SOB this am upon waking, at this time the differential includes but is not limited to acute PE, COPD exacerbation, ACS, bacterial pneumonia, CHF, and anxiety -He appears euvolemic and non toxic, CBC WNL, VBG with a pH of 7.44 but otherwise WNL, no consolidations or fluid noted on CXR -S/P a dose of Doxycycline, an hour long DuoNeb treatment, 125 mg IV methyprednisolone, and 1gm IV mag. -Will get STAT CTPE as his kidney function is WNL and he has no contraindications, if + will start anticoagulation -Will continue treatment for possible COPD exacerbation for now with 100 mg IV Doxy Q12H, 60 mg IV Solu-Medrol daily starting tomorrow (can switch to PO Prednisone when stable), continue home Anoro-Ellipta, incentive spirometry, flutter therapy, QID DuoNebs, prn robitussin -Will obtain Full Respiratory biofire and urine legionella screen for further evaluation -Prn O2 to keep SpO2 between 88-92%, will wean off Bipap as able -Sub-Q lovenox for DVT PPX -AM CBC, BMP (2) COPD (chronic obstructive pulmonary disease): Plan: -See acute respiratory failure with hypoxia -Patient may need an increased regimen as it appears he was requiring frequent use of his rescue inhaler over the past few weeks (3) Right inguinal hernia: Plan: -Is scheduled for repair on 08/09/22 -Currently reduced and patient is asymptomatic, continue to monitor (4) Hypertension: Plan: -Stable -Not on medication at this time -Continue to monitor (5) Gastroesophageal reflux disease: Plan: -Daily famotidine for stress ulcer prophylaxis Plan The patient was discussed with Dr. White at the time of the admission History of Present Illness Chief Complaint: SOB Primary Care Provider: Andre Butcher, III, MULU Luis Kemp is a 81yo male with PMHx significant for moderate COPD (FEV1 56% in 10/2018), previous tobacco abuse, HTN and GERD who presented to the [facility] ED on 07/28/22 via EMS with a chief complaint of SOB. In the ED the patient was found to be afebrile, hemodynamically stable, and was stable on CPAP placed by EMS in route. Per the ED staff, the patient called EMS due to continued SOB despite use of his rescue inhaler. Upon arrival the patient was experiencing significant work of breathing and CPAP was started. Labs were significant for a CBC with total lymphocytes of 4.64, eosinophils of 0.66 otherwise WNL, VBG showing a pH of 7.44 otherwise WNL, stable Cr at 1.08 and stable electrolytes, LFT's WNL, glucose of 144, initial high sen trop of 5.7, and Covid/influenza/RSV negative. Chest xray was read as "No acute cardiopulmonary findings.". Prior to admission the patient was given a dose of Doxycycline, 1gm IV magnesium, 125 mg IV methylprednisolone, and an hour long DuoNeb. At the time of the exam the patient was sitting in bed comfortably on Bipap with his sitting bedside, history was obtained from both. They state that the patient has been in his normal state of health recently. Of note, they have noticed that he has been having to use his albuterol rescue inhaler approximately every 6 hours over the past few weeks. He has not had recent URI symptoms, fever, chills, chest pain, increased cough or sputum production, change in sputum color, abd pain, nausea, vomiting, diarrhea, dysuria, hematuria, LE swelling/pain, recent travel, or recent trauma. They confirm that he has been using his Anoro-Ellipta daily and is on no other medications besides his inhalers. We went to bed last night feeling well. This am he woke around 0900 and immediately felt SOB. He used his inhalers without resolution of his symptoms which is why they called EMS. He states that his WOB and SOB have significantly improved compared to arrival. He does not have a previous history of blood clots and denies recent pleuritic chest pain. We discussed code status, the patient is a Full Code and would want his to make medical decisions for him if he could not make them himself. I explained that we would like to get a CT of the chest with IV contrast to look for any blood clots in his lungs, he and his are in agreement. He denies a previous allergy to IV CT contrast, shellfish, and Iodine. We discussed the risks and benefits of starting anticoagulation if he would be found to have a PE. They deny a previous history of major bleeding and would be in agreement with starting anticoagulation if needed. Please refer to Dr. White's attestation for any changes to the treatment plan. Allergies Allergy/AdvReac Type Severity Reaction Status Date / Time No Known Allergies Allergy Verified 07/19/22 12:03 Home Medications Medication Instructions Recorded Confirmed Type umeclidinium 62.5 mcg-vilanterol 1 inh inhalation DAILY #90 ea 04/15/22 07/28/22 Rx 25 mcg/actuation powdr for inhalation (Anoro Ellipta) albuterol sulfate 90 mcg/actuation 1 - 2 puff inhalation Q4H PRN 07/05/22 07/28/22 Rx aerosol inhaler (Ventolin HFA) shortness of breath #8.5 grams Past Med/Surg History Medical History Dizziness Gastroesophageal reflux disease Heart murmur Prostate cancer Surgical History H/O prostatectomy 2006 in [place], [place] Family History Brother Prostate cancer Father Myocardial infarction Heart disease Mother Myocardial infarction Diabetes Denies family history of Colon cancer Ovarian cancer Breast cancer Social History Smoking Status: Former smoker Age Started Using Tobacco: 16; Age Quit Using Tobacco: 48; packs per day: 1; Second Hand Exposure: No; Do You Dip or Chew Tobacco: No; Tobacco Cessation Education Requested by Patient: No Hx Alcohol Use: Yes Alcohol type: wine Alcohol Intake Frequency: 4 or More x per/Week Alcohol Intake Frequency Comment: x2 daily Hx Substance Use: No Preferred Language: Kyrgyz Communication Ability: Effective Visual Impairment: No Limitations Hearing Ability: Normal Director Of Market Analysis Required: No Beliefs That Will Affect Care: None marital status: Current Living Situation: Spouse current occupational status: retired How many Children do You have: 4 Other Information That Helps Us Care for You: No Feels Safe at Home: Yes Safety Concerns: Feels Safe At This Time Childhood Exposure to Second-Hand Smoke: No Diet Comment: Mediterranean during the past year weight has: remained stable Dental Care, Regularly: Yes Physical Activity Frequency: 1-2 Times per Week Seatbelt Use: sometimes Sunscreen Use: No Assistive Devices: None Review of Systems Review of Systems: Denies current fever, chills, headache, changes in vision, hearing, taste, and smell, chest pain, increased cough, abdominal pain, nausea, vomiting, diarrhea, hematemesis, melena, dysuria, hematuria, and recent falls. All systems have been reviewed and are otherwise negative. Physical Exam Physical Exam: Physical Exam: General: In no acute distress, stated age, well-nourished, good hygiene, non- toxic appearing HEENT: Normocephalic, atraumatic, curently with bipap mask in place and without signs of air leakage, no scleral icterus, pupils around round, symmetrical, and reactive to light, trachea midline, no thyromegaly Chest/Pulm: No respiratory distress, symmetrical chest expansion, clear breath sounds throughout Cardiac: tachycardic rate, regular rhythm, no murmurs noted Abdomen: Negative for ascites and bruising, normoactive bowel sounds, soft, non-tender to palpation throughout Musculoskeletal: Symmetrical and without signs of acute trauma, upper and lower extremities with full ROM, no atrophy, spasticity, or flaccidity Extremities: Radial, dorsalis pedis, and posterior tibial pulses are intact and symmetrical, no edema noted in the BL LE's Skin: Warm, dry, no rashes , lesions, or scars noted Neuro: Alert and oriented to person, place, month, year, and president, no focal defects, no tremors noted Psych: No acute distress, calm and cooperative during the exam Results & Data Results & Data Vital Signs (Past 12 Hours) Vital Signs Temp Pulse Pulse Resp BP BP Pulse Ox 07/28/22 11:30 106 H 14 100 07/28/22 11:30 135/97 07/28/22 11:16 07/28/22 11:00 117 H 18 100 07/28/22 11:00 135/104 H 07/28/22 10:39 107 H 18 166/91 H 99 07/28/22 10:21 124 H 22 99 07/28/22 10:21 118 H 20 100 07/28/22 10:16 109 H 22 99 07/28/22 09:52 124 H 07/28/22 09:57 100 07/28/22 09:52 36.7 C 120 H 24 192/102 H 98 O2 Del Method FiO2 07/28/22 11:30 BiPAP 07/28/22 11:30 07/28/22 11:16 BiPAP 07/28/22 11:00 BiPAP 07/28/22 11:00 07/28/22 10:39 BiPAP 07/28/22 10:21 BiPAP 30 07/28/22 10:21 30 07/28/22 10:16 BiPAP 07/28/22 09:52 07/28/22 09:57 BiPAP 07/28/22 09:52 BiPAP, CPAP Laboratory Results Abnormal lab results 07/28/22 07/28/22 07/28/22 Range/Units 10:00 10:00 10:02 Total Abs Lymphocytes 4.64 H (1.2-3.4) K/uL Eosinophils # (Manual) 0.66 H (0-0.50) K/uL VBG pH 7.44 H (7.36-7.41) Glucose 144 H (70-99(Fasting)) mg/dl Diagnostic Findings Chest X-Ray 07/28/22 09:45 XR chest 1V portable CLINICAL HISTORY: Chest pain, nonspecific COMPARISON STUDY: Chest radiograph July 05, 2021. FINDINGS: Lung volumes are normal. Lungs are clear. There is no pneumothorax or pleural effusion. Cardiac size is normal. Mediastinal contours are normal. There is no evidence for pulmonary edema. IMPRESSION: No acute cardiopulmonary findings. ACT 112: Negative or not required by law. Electronically signed by: Agapito Calhoun M.D. 07/28/2022 10:15 AM ECG Additional Comments: Poor data quality, interpretation may be adversely affected Sinus tachycardia Right bundle branch block Possible Inferior infarct , age undetermined Abnormal ECG When compared with ECG of 19-JUL-2022 12:07, Borderline criteria for Inferior infarct are now Present Code Status & VTE Plan Code Status Full code VTE Prophylaxis Plan VTE Prophylaxis will be ordered: Yes Supervising Physician Co-Signing Physician Notes I personally saw and examined the patient. I verified all bassett points and agree with Bradley Murray PA-C with the following exceptions and/or additions: 81 year old male presents with progressive worsening shortness of breath over the last 2 weeks. No fever, chills, chest pain, nasal congestion or sinus pain. Patient seen briefly in the ER while on BiPAP then again more thoroughly in the evening. Not treated with outpatient steroids. O/E A&Ox3, no respiratory distress now on room air on the lai, mild expiratory wheezing still present, no crackles, HS RRR, systolic apical murmur present, Abdo SNT A/P Acute respiratory failure with hypoxia - now resolved after admission with duoneb and steroids, continue IV solu-medrol 60mg daily, duonebs, doxycycline COPD exacerbation - as above Cystic focus right lower lobe - recommend pulm follow up for this and nodules seen on CT PG Care Time/CCT Total # of Minutes Spent Total Time Spent with Patient: Total time spent is greater than 50% in coordination of care (as documented) at patient's floor/unit and/or counseling patient: Coding [place] [address] INT INP/OBS CARE 2/55MIN Patient Type Established Medical Decision Making High Complexity Diagnoses Acute respiratory failure with hypoxia J96.01 COPD (chronic obstructive pulmonary disease) J44.9 Right inguinal hernia K40.90 Hypertension I10 Hypertension type: primary hypertension Gastroesophageal reflux disease K21.9 (4) Hypertension Hypertension type: primary hypertension Qualified Code(s): I10 - Essential (primary) hypertension
[2022-07-28] MEDS ORDERED: guaiFENesin SUGAR FREE 200 MG/10 ML UDC PO PRN (12:47)
[2022-07-28] MEDS ORDERED: FAMOTIDINE 20MG/5ML IV PUSH IV STA (12:52)
[2022-07-28] MEDS ORDERED: OPTIRAY 320 500ml IV ONE (13:03)
--- NOTE | 2022-07-28 13:22 | CT Scan Report ---
CHEST CTA for PULMONARY ARTERIES CT DOSE: 317.99 mGy.cm HISTORY: Respiratory distress. TECHNIQUE: Multiaxial CT images of the chest were performed following the intravenous administration of contrast to evaluate the pulmonary arteries. Maximal intensity projection images were also obtaine d. A dose lowering technique was utilized adhering to the principles of ALARA. COMPARISON STUDY: None. FINDINGS: Limited views of the upper abdomen demonstrate normal liver, spleen, and adrenal glands. Pa rtially visualized bilateral renal cysts are noted. There are small hiatus hernia. A few thyroid nodu les with the largest on the right measuring 1.2 cm. These do not meet CT criteria for follow-up. Norm al caliber esophagus. No mediastinal or hilar lymphadenopathy. The heart is normal in size. Trace ant erior pericardial effusion. No pleural effusions. No suspicious lytic or blastic osseous lesions. Mil d respiratory motion artifact. The central airways are patent. No pneumothorax. Mild emphysema. A 4 m m subpleural nodule within the right lung apex on image 274. There are 2 groundglass nodules within t he right upper lobe on images 249 and 232 with the largest measuring 8 mm. Small cystic focus with ad jacent groundglass density within the right lower lobe in image 150 measuring 1.6 cm. These may repre sent small foci of inflammatory/infectious change. However, [address] follow-up recommended to ensure stability/resolution. Otherwise, no focal lung consolidations to suggest a pneumonia. No evid ence for an aortic dissection. Nondiagnostic evaluation of the bilateral lower lobe subsegmental pulm onary emboli due to the respiratory motion artifact. Otherwise, the remaining arteries show no fillin g defects to suggest a pulmonary embolus. IMPRESSION: 1. No evidence for a pulmonary embolus. 2. Mild emphysema. 3. A few subcentimeter nodules within the right upper lobe as described above. [address] follo w-up recommended to ensure stability/resolution. 4. There is also a 1.6 cm cystic focus within the adjacent groundglass density within the right lower lobe. Attention at follow-up also recommended. 5. Otherwise, no focal lung consolidations identified. ACT 112: Negative or not required by law. Electronically signed by: Russ Nolasco M.D. 07/28/2022 1:20 PM
[2022-07-28 14:13] LABS: Adenovirus PCR Not Detected (NotDetected); Bordetella parapertussis PCR Not Detected (NotDetected); Bordetella pertussis PCR Not Detected (NotDetected); Chlamydia pneumoniae PCR Not Detected (NotDetected); Coronavirus 229E PCR Not Detected (NotDetected); Coronavirus CoV-2 (COVID19)PCR Not Detected (NotDetected); Coronavirus HKU1 PCR Not Detected (NotDetected); Coronavirus NL63 PCR Not Detected (NotDetected); Coronavirus OC43PCR Not Detected (NotDetected); Human Metapneumovirus PCR Not Detected (NotDetected); Influenza A PCR Not Detected (NotDetected); Influenza B PCR Not Detected (NotDetected); Mycoplasma pneumoniae PCR Not Detected (NotDetected); Parainfluenza Virus 1 PCR Not Detected (NotDetected); Parainfluenza Virus 2 PCR Not Detected (NotDetected); Parainfluenza Virus 3 PCR Not Detected (NotDetected); Parainfluenza Virus 4 PCR Not Detected (NotDetected); Respiratory Syncytial VirusPCR Not Detected (NotDetected); Rhinovirus/Enterovirus PCR Not Detected (NotDetected)
--- NOTE | 2022-07-28 14:17 | Electrocardiogram Report ---
Test Reason : Blood Pressure : / mmHG Vent. Rate : 124 BPM Atrial Rate : 124 BPM P-R Int : 138 ms QRS Dur : 138 ms QT Int : 328 ms P-R-T Axes : 074 012 064 degrees QTc Int : 471 ms Poor data quality, interpretation may be adversely affected Sinus tachycardia Right bundle branch block When compared with ECG of 19-JUL-2022 12:07, Borderline criteria for Inferior infarct are now Present Confirmed by King Solis ([id number]) on 07/28/2022 2:16:55 PM Referred By: Confirmed By:Demarco Solis
[2022-07-28] MEDS: ALBUT/IPRATROP 3MG/0.5MG NEB 3 ML VIAL NEB SCH ×2 (14:29→20:02)
[2022-07-28] MEDS: ENOXAPARIN INJ 40 MG/0.4 ML SYR SQ SCH (15:43)
[2022-07-28] MEDS: DOXYCYCLINE HYCLATE 100 MG in DEXTROSE 5% 100 ML IV SCH (20:32)
[2022-07-29] MEDS: ALBUT/IPRATROP 3MG/0.5MG NEB 3 ML VIAL NEB SCH ×4 (07:26→19:09)
[2022-07-29 07:28] LABS: Basophils # (auto) 0.04 K/uL (0-0.2); Basophils % (auto) 0.3 %; Eosinophils # (auto) 0.01 K/uL (0-0.50); Eosinophils % (auto) 0.1 %; Hematocrit (blood only) 45.5 % (42.0-52.0); Hemoglobin 15.7 g/dl (14.0-18.0); Immature Granulocytes # (auto) 0.05 K/uL (0.01-0.20); Immature Granulocytes % (auto) 0.4 %; Lymphocytes # (auto) 2.06 K/uL (1.2-3.4); Lymphocytes % (auto) 17.4 %; Mean Corpuscular Hgb Conc 34.5 g/dL (32.0-36.0); Mean Corpuscular Volume 92.9 fL (80.0-100.0); Monocytes # (auto) 0.78 K/uL (0.11-0.59); Monocytes % (auto) 6.6 %; Neutrophils # (auto) 8.89 K/uL (1.40-6.50); Neutrophils % (auto) 75.2 %; Platelet Count 299 K/uL (130-400); RDW Coefficient of Variation 13.9 % (11.5-14.5); RDW Standard Deviation 47.6 fL (36.4-46.3); White Blood Count 11.83 K/ul (4.8-10.8)
[2022-07-29 07:58] LABS: Calcium 9.7 mg/dl (8.6-10.3); Creatinine Clr Calc Pharmacy 49.4 ml/min; Est GFR (African American) 74.9 ml/min; Est GFR (Non-African American) 64.6 ml/min; Potassium 3.8 mmol/L (3.5-5.1)
--- NOTE | 2022-07-29 08:00 | Hospitalist Progress Note ---
Date of Service July 29, 2022 Assessment & Plan (1) Acute respiratory failure with hypoxia: Plan: #Acute Respiratory Failure with Hypoxia#COPD Patient has a known history of COPD on maintenance inhalers at home. Compliant with these. Has been using CALI more frequently over the last 6 weeks. Patient s/p doxycycline, neb treatment x1hr, 125 mg SoluMedrol, 1 gm IV mag in the ED. Severe, sudden onset of SOB - concern for PE. CTPE neg for emboli. Was on BiPAP, now on RA. Likely COPD exacerbation. [] doxycycline [] pulmonary toilet - mucinex, IS, flutter valve, robitussin, duonebs [] SoluMedrol 60 mg IV with plan to convert to PO during hospital stay [] continue home inhaler [] resp biofire neg [] urine legionella pending [] SpO2 between 88-92% [] overnight O2 [] consider escalating outpatient care as increased use of CALI last 6 weeks #Right inguinal hernia Is scheduled for repair on 08/09/22. -Currently reduced and patient is asymptomatic, continue to monitor #HTN Stable, not on home meds #GERD Daily famotidine for stress ulcer prophylaxis Code status: full DVT ppx: lovenox FENGI: heart healthy diet Dispo:med/tele (2) COPD (chronic obstructive pulmonary disease): (3) Right inguinal hernia: (4) Hypertension: (5) Gastroesophageal reflux disease: Admission and Anticipated Discharge Date Admission Date: July 28, 2022 Supervising Physician Co-Signing Physician Notes I personally examined the patient and verified all bassett points of history and exam, discussed case, and agree with decision making and plan documented by Dr. Caldera. symptoms consistent with COPD exacerbation. left lower lobe wheezing noted. continue duonebs. night time pulse ox to determine if SHARRI playing a role. if pat ient continues to improve tomorrow consider transition to PO prednisone. continue Doxycycline for now. Subjective Patient feels much improved after treatment. No complaints Review of Systems Review of Systems: See HPI Physical Exam Physical Exam: Physical Exam: General: In no acute distress, stated age, well-nourished, good hygiene, non-toxic appearing HEENT: Normocephalic, atraumatic, breathing comfortably on room air Chest/Pulm: No respiratory distress, symmetrical chest expansion, clear breath sounds throughout, wheezing LLL Cardiac: tachycardic rate, regular rhythm, no murmurs noted Abdomen: Non-distended Musculoskeletal: No gross deformities Skin: Warm, dry, no rashes , lesions, or scars noted Neuro: Alert and oriented Psych: No acute distress, calm and cooperative during the exam Results & Data Results & Data Vital Signs (Past 12 Hours) Vital Signs Temp Pulse Pulse Resp BP Pulse Ox O2 Del Method 07/29/22 07:30 84 20 96 Room Air 07/29/22 07:19 106 H 07/29/22 03:30 36.5 C 79 20 125/77 96 Room Air 07/28/22 22:20 89 07/29/22 00:35 Room Air 07/28/22 22:00 37 C 87 18 116/67 96 Room Air 07/28/22 20:03 100 H 12 94 Room Air Laboratory Results 07/29/22 06:37 07/29/22 06:37 Diagnostic Findings Chest X-Ray 07/28/22 09:45 XR chest 1V portable CLINICAL HISTORY: Chest pain, nonspecific COMPARISON STUDY: Chest radiograph July 05, 2021. FINDINGS: Lung volumes are normal. Lungs are clear. There is no pneumothorax or pleural effusion. Cardiac size is normal. Mediastinal contours are normal. There is no evidence for pulmonary edema. IMPRESSION: No acute cardiopulmonary findings. Chest CTA 07/28/22 12:12 CHEST CTA for PULMONARY ARTERIES CT DOSE: 317.99 mGy.cm HISTORY: Respiratory distress. TECHNIQUE: Multiaxial CT images of the chest were performed following the intravenous administration of contrast to evaluate the pulmonary arteries. Maximal intensity projection images were also obtained. A dose lowering technique was utilized adhering to the principles of ALARA. COMPARISON STUDY: None. FINDINGS: Limited views of the upper abdomen demonstrate normal liver, spleen, and adrenal glands. Partially visualized bilateral renal cysts are noted. There are small hiatus hernia. A few thyroid nodules with the largest on the right measuring 1.2 cm. These do not meet CT criteria for follow-up. Normal caliber esophagus. No mediastinal or hilar lymphadenopathy. The heart is normal in size. Trace anterior pericardial effusion. No pleural effusions. No suspicious lytic or blastic osseous lesions. Mild respiratory motion artifact. The central airways are patent. No pneumothorax. Mild emphysema. A 4 mm subpleural nodule within the right lung apex on image 274. There are 2 groundglass nodules within the right upper lobe on images 249 and 232 with the largest measuring 8 mm. Small cystic focus with adjacent groundglass density within the right lower lobe in image 150 measuring 1.6 cm. These may represent small foci of inflammatory/infectious change. However, [address] follow-up recommended to ensure stability/resolution. Otherwise, no focal lung consolidations to suggest a pneumonia. No evidence for an aortic dissection. Nondiagnostic evaluation of the bilateral lower lobe subsegmental pulmonary emboli due to the respiratory motion artifact. Otherwise, the remaining arteries show no filling defects to suggest a pulmonary embolus. IMPRESSION: 1. No evidence for a pulmonary embolus. 2. Mild emphysema. 3. A few subcentimeter nodules within the right upper lobe as described above. [address] follow-up recommended to ensure stability/resolution. 4. There is also a 1.6 cm cystic focus within the adjacent groundglass density within the right lower lobe. Attention at follow-up also recommended. 5. Otherwise, no focal lung consolidations identified. Resident Activity Tracking Resident Involvement: Resident Care Provided Care Provided: Adult Hospital Medicine (4) Hypertension Hypertension type: primary hypertension Qualified Code(s): I10 - Essential (primary) hypertension
[2022-07-29] MEDS: FAMOTIDINE 20 MG in SYRINGE 3 ML IV SCH (08:48)
[2022-07-29] MEDS: UMECLIDINIUM/VILANTEROL 62.5/25MCG 7 PUFFS/INHALER INH SCH (08:48)
[2022-07-29] MEDS: methylPREDNISolone 60 MG in SYRINGE 0 ML IV SCH (08:48)
[2022-07-29] MEDS ORDERED: methylPREDNISolone 125 MG/2 ML VIAL IV SCH (09:00)
[2022-07-29] MEDS: DOXYCYCLINE HYCLATE 100 MG in DEXTROSE 5% 100 ML IV SCH ×2 (09:57→20:08)
[2022-07-29] MEDS: ENOXAPARIN INJ 40 MG/0.4 ML SYR SQ SCH (15:13)
--- NOTE | 2022-07-30 07:01 | Hospitalist Progress Note ---
Date of Service July 30, 2022 Assessment & Plan (1) Acute respiratory failure with hypoxia: Plan: #Acute Respiratory Failure with Hypoxia#COPD Patient has a known history of COPD on maintenance inhalers at home. Compliant with these. Has been using CALI more frequently over the last 6 weeks. Patient s/p doxycycline, neb treatment x1hr, 125 mg SoluMedrol, 1 gm IV mag in the ED. Severe, sudden onset of SOB - concern for PE. CTPE neg for emboli. Was on BiPAP, now on RA. Likely COPD exacerbation. [] doxycycline [] pulmonary toilet - mucinex, IS, flutter valve, robitussin, duonebs [] SoluMedrol 60 mg IV with plan to convert to PO during hospital stay [] continue home inhaler [] resp biofire neg [] urine legionella pending [] SpO2 between 88-92% [] overnight O2 [] consider escalating outpatient care as increased use of CALI last 6 weeks #Right inguinal hernia Is scheduled for repair on 08/09/22. -Currently reduced and patient is asymptomatic, continue to monitor #HTN Stable, not on home meds #GERD Daily famotidine for stress ulcer prophylaxis Code status: full DVT ppx: lovenox FENGI: heart healthy diet Dispo:med/tele (2) COPD (chronic obstructive pulmonary disease): (3) Right inguinal hernia: (4) Hypertension: (5) Gastroesophageal reflux disease: Admission and Anticipated Discharge Date Admission Date: July 28, 2022 Review of Systems Review of Systems: See HPI Physical Exam Physical Exam: Physical Exam: General: In no acute distress, stated age, well-nourished, good hygiene, non- toxic appearing HEENT: Normocephalic, atraumatic, breathing comfortably on room air Chest/Pulm: No respiratory distress, symmetrical chest expansion, clear breath sounds throughout, wheezing LLL Cardiac: tachycardic rate, regular rhythm, no murmurs noted Abdomen: Non-distended Musculoskeletal: No gross deformities Skin: Warm, dry, no rashes , lesions, or scars noted Neuro: Alert and oriented Psych: No acute distress, calm and cooperative during the exam Results & Data Results & Data Vital Signs (Past 12 Hours) Vital Signs Temp Pulse Pulse Pulse Resp BP Pulse Ox 07/30/22 04:06 36.4 C L 79 20 135/84 96 07/30/22 02:18 63 07/29/22 22:01 78 07/29/22 23:39 36.6 C 86 20 127/84 94 07/29/22 22:08 81 07/29/22 19:45 36.5 C 87 20 110/75 99 07/29/22 19:09 87 16 97 Pulse Ox O2 Del Method O2 Del Method 07/30/22 04:06 Room Air 07/30/22 02:18 95 Room Air 07/29/22 22:01 07/29/22 23:39 Room Air 07/29/22 22:08 91 Room Air 07/29/22 19:45 Room Air 07/29/22 19:09 Room Air (4) Hypertension Hypertension type: primary hypertension Qualified Code(s): I10 - Essential (primary) hypertension
[2022-07-30] MEDS: ALBUT/IPRATROP 3MG/0.5MG NEB 3 ML VIAL NEB SCH ×2 (07:16→11:32)
[2022-07-30 07:41] LABS: Basophils # (auto) 0.07 K/uL (0-0.2); Basophils % (auto) 0.8 %; Eosinophils # (auto) 0.12 K/uL (0-0.50); Eosinophils % (auto) 1.3 %; Hematocrit (blood only) 42.1 % (42.0-52.0); Hemoglobin 14.7 g/dl (14.0-18.0); Immature Granulocytes # (auto) 0.04 K/uL (0.01-0.20); Immature Granulocytes % (auto) 0.4 %; Lymphocytes # (auto) 2.95 K/uL (1.2-3.4); Lymphocytes % (auto) 32.8 %; Mean Corpuscular Hemoglobin 32.2 pg (25.0-34.0); Mean Corpuscular Hgb Conc 34.9 g/dL (32.0-36.0); Mean Corpuscular Volume 92.1 fL (80.0-100.0); Mean Platelet Volume 9.7 fL (9.4-12.4); Monocytes # (auto) 0.71 K/uL (0.11-0.59); Monocytes % (auto) 7.9 %; Neutrophils % (auto) 56.8 %; Platelet Count 245 K/uL (130-400); RDW Coefficient of Variation 14.1 % (11.5-14.5); RDW Standard Deviation 47.9 fL (36.4-46.3); Red Blood Count 4.57 M/uL (4.70-6.10); White Blood Count 8.99 K/ul (4.8-10.8)
[2022-07-30 08:00] LABS: BUN Creatinine Ratio 18.4 (10-20); Calcium 9.2 mg/dl (8.6-10.3); Creatinine Clr Calc Pharmacy 45.9 ml/min; Est GFR (African American) 68.5 ml/min; Est GFR (Non-African American) 59.1 ml/min; Potassium 4.1 mmol/L (3.5-5.1)
[2022-07-30] MEDS: methylPREDNISolone 60 MG in SYRINGE 0 ML IV SCH (09:28)
[2022-07-30] MEDS: UMECLIDINIUM/VILANTEROL 62.5/25MCG 7 PUFFS/INHALER INH SCH (09:28)
[2022-07-30] MEDS: DOXYCYCLINE HYCLATE 100 MG in DEXTROSE 5% 100 ML IV SCH (09:28)
[2022-07-30] MEDS: FAMOTIDINE 20 MG in SYRINGE 3 ML IV SCH (09:28)
--- NOTE | 2022-07-30 11:15 | Discharge Summary ---
Date of Service July 30, 2022 Admission HPI Per Admitting Provider Luis Kemp is a 81yo male with PMHx significant for moderate COPD (FEV1 56% in 10/2018), previous tobacco abuse, HTN and GERD who presented to the [facility] ED on 07/28/22 via EMS with a chief complaint of SOB. In the ED the patient was found to be afebrile, hemodynamically stable, and was stable on CPAP placed by EMS in route. Per the ED staff, the patient called EMS due to continued SOB despite use of his rescue inhaler. Upon arrival the patient was experiencing significant work of breathing and CPAP was started. Labs were significant for a CBC with total lymphocytes of 4.64, eosinophils of 0.66 otherwise WNL, VBG showing a pH of 7.44 otherwise WNL, stable Cr at 1.08 and stable electrolytes, LFT's WNL, glucose of 144, initial high sen trop of 5.7, and Covid/influenza/RSV negative. Chest xray was read as "No acute cardiopulmonary findings.". Prior to admission the patient was given a dose of Doxycycline, 1gm IV magnesium, 125 mg IV methylprednisolone, and an hour long DuoNeb. At the time of the exam the patient was sitting in bed comfortably on Bipap with his sitting bedside, history was obtained from both. They state that the patient has been in his normal state of health recently. Of note, they have noticed that he has been having to use his albuterol rescue inhaler approximately every 6 hours over the past few weeks. He has not had recent URI symptoms, fever, chills, chest pain, increased cough or sputum production, change in sputum color, abd pain, nausea, vomiting, diarrhea, dysuria, hematuria, LE swelling/pain, recent travel, or recent trauma. They confirm that he has been using his Anoro-Ellipta daily and is on no other medications besides his inhalers. We went to bed last night feeling well. This am he woke around 0900 and immediately felt SOB. He used his inhalers without resolution of his symptoms which is why they called EMS. He states that his WOB and SOB have significantly improved compared to arrival. He does not have a previous history of blood clots and denies recent pleuritic chest pain. We discussed code status, the patient is a Full Code and would want his to make medical decisions for him if he could not make them himself. I explained that we would like to get a CT of the chest with IV contrast to look for any blood clots in his lungs, he and his are in agreement. He denies a previous allergy to IV CT contrast, shellfish, and Iodine. We discussed the risks and benefits of starting anticoagulation if he would be found to have a PE. They deny a previous history of major bleeding and would be in agreement with starting anticoagulation if needed. Please refer to Dr. White's attestation for any changes to the treatment plan. Principal Diagnosis COPD exacerbation Discharge Exam General:In no acute distress, stated age, well-nourished, good hygiene, non- toxic appearing HEENT:Normocephalic, atraumatic, breathing comfortably on room air Chest/Pulm:No respiratory distress, symmetrical chest expansion, clear breath sounds throughout, some scattered wheezing Cardiac:tachycardic rate, regular rhythm, no murmurs noted Abdomen:Non-distended Musculoskeletal:No gross deformities Skin:Warm, dry, no rashes , lesions, or scars noted Neuro:Alert and oriented Psych:No acute distress, calm and cooperative during the exam Discharge Data Allergies Allergy/AdvReac Type Severity Reaction Status Date / Time No Known Allergies Allergy Verified 07/19/22 12:03 Consultations 07/28/22 12:10 ED Decision to Admit Stat Ordered Studies Chest X-Ray 07/28/22 09:45 XR chest 1V portable CLINICAL HISTORY: Chest pain, nonspecific COMPARISON STUDY: Chest radiograph July 05, 2021. FINDINGS: Lung volumes are normal. Lungs are clear. There is no pneumothorax or pleural effusion. Cardiac size is normal. Mediastinal contours are normal. There is no evidence for pulmonary edema. IMPRESSION: No acute cardiopulmonary findings. Chest CTA 07/28/22 12:12 CHEST CTA for PULMONARY ARTERIES CT DOSE: 317.99 mGy.cm HISTORY: Respiratory distress. TECHNIQUE: Multiaxial CT images of the chest were performed following the intravenous administration of contrast to evaluate the pulmonary arteries. Maximal intensity projection images were also obtained. A dose lowering technique was utilized adhering to the principles of ALARA. COMPARISON STUDY: None. FINDINGS: Limited views of the upper abdomen demonstrate normal liver, spleen, and adrenal glands. Partially visualized bilateral renal cysts are noted. There are small hiatus hernia. A few thyroid nodules with the largest on the right measuring 1.2 cm. These do not meet CT criteria for follow-up. Normal caliber esophagus. No mediastinal or hilar lymphadenopathy. The heart is normal in size. Trace anterior pericardial effusion. No pleural effusions. No suspicious lytic or blastic osseous lesions. Mild respiratory motion artifact. The central airways are patent. No pneumothorax. Mild emphysema. A 4 mm subpleural nodule within the right lung apex on image 274. There are 2 groundglass nodules within the right upper lobe on images 249 and 232 with the largest measuring 8 mm. Small cystic focus with adjacent groundglass density within the right lower lobe in image 150 measuring 1.6 cm. These may represent small foci of inflammatory/infectious change. However, [address] follow-up recommended to ensure stability/resolution. Otherwise, no focal lung consolidations to suggest a pneumonia. No evidence for an aortic dissection. Nondiagnostic evaluation of the bilateral lower lobe subsegmental pulmonary emboli due to the respiratory motion artifact. Otherwise, the remaining arteries show no filling defects to suggest a pulmonary embolus. IMPRESSION: 1. No evidence for a pulmonary embolus. 2. Mild emphysema. 3. A few subcentimeter nodules within the right upper lobe as described above. [address] follow-up recommended to ensure stability/resolution. 4. There is also a 1.6 cm cystic focus within the adjacent groundglass density within the right lower lobe. Attention at follow-up also recommended. 5. Otherwise, no focal lung consolidations identified. 07/30/22 07:07 07/30/22 07:07 Hospital Course (1) Acute respiratory failure with hypoxia: 81 y/o male with a PMHx of COPD on maintenance medication presented with acute hypoxia requiring BiPAP improved rapidly with nebs and IV steroids now saturating well on RA and ready for discharge. #Acute Respiratory Failure with Hypoxia#COPD Patient has a known history of COPD on maintenance inhalers at home. Compliant with these. Has been using CALI more frequently over the last 6 weeks. Patient s/p doxycycline, neb treatment x1hr, 125 mg SoluMedrol, 1 gm IV mag in the ED. Patient was started on empiric doxy for presumed bacterial PNA. BioFire neg, legionella negative, alpha1 antitrypsin pending. Severe, sudden onset of SOB - concern for PE. CTPE neg for emboli. Was on BiPAP, now on RA. Likely COPD exacerbation. Overnight pulse ox did not show any hypoxic events. Stable for discharge. Will discharge with prednisone taper, azithromycin, and scheduled nebs. Patient given paper script for neb machine. Directed to f/u with PCP and pulm in the near future. May need escalation of maintenance medications. #Right inguinal hernia Is scheduled for repair on 08/09/22. Currently reduced and patient is asymptomatic, continue to monitor. Unclear if he would be a surgical candidate in light of his recent hospitalization. Surgeon Dr. Clement Meadows. #HTN Stable, not on home meds #GERD Daily famotidine for stress ulcer prophylaxis Code status: full DVT ppx: lovenox FENGI: heart healthy diet Dispo: home (2) COPD (chronic obstructive pulmonary disease): (3) Right inguinal hernia: (4) Hypertension: (5) Gastroesophageal reflux disease: Total Time Total Time Spent Total Time Spent (In Minutes): see attending attestation Discharge Plan Discharge Items Patient Disposition: Home - Self-Care Reason For Visit: SOB Discharge Diagnosis: COPD exacerbation Activity: Per Instructions section Non-emergency contact: Primary Care Provider, Surgeon and Sand Mixer Call non-emergency contact if: you have any medication questions, your symptoms worsen and your temperature is above 101.5 Follow-up/Referrals: Andre Butcher III, CRNP [Primary Care Provider] - 08/09/22 9:20 am Charan Saravia MD [Physician] - Diet: Regular Addtl Attending Provider Instructions: You were admitted to the hospital for shortness of breath. This may have been multifactorial in nature with a component of COPD exacerbation, stress/anxiety, and possibly sleep apnea. You were treated initially with BiPAP, but quickly improved and did well on room air. We kept you overnight for observation and you did well. You were also treated with steroids and antibiotics while you were here in addition to scheduled nebulizer treatments. I would recommend continuing with the nebulizer treatments 4 times daily for the next 5-7 days. You can then use the nebulizer as needed. I also sent a prednisone taper to your pharmacy and a 5 day course of antibiotics. Please take this medications as instructed. If you have any issues filling these prescriptions please call [phone] and ask to leave a message for Dr. Caldera. A discharge summary will be sent to your primary care physician to ensure continuity of care. Please bring this discharge summary with you to your next office appointment so that your provider can review it at that time. Follow-up appointments: We have requested a follow-up appointment with your primary care physician within one week of discharge. Please call their office if you do not hear from them. We have requested a follow-up appointment with your agricultural systems specialist within one week of discharge. Please call their office if you do not hear from them. Keep all your follow-up appointments as already scheduled. If you cannot make an appointment, notify your provider. Medications: Your medication list has been reviewed and reconciled upon discharge to ensure accuracy and continuity of care. An updated list of all your medications is included with your hospital discharge paperwork. Please review this list closely, and make note of any changes. Take your medications as instructed; do not skip a dose of your medicines. Make sure all of your doctors know every medicine you are taking (including [id number] medicines, vitamins, and supplements). Call your primary care provider before taking any new medicines (including over- the-counter medicines, vitamins, and supplements), because some of these may interact with your current medications, or may make your symptoms worse. Tell your primary care provider if you cannot afford your medications. CONTACT YOUR PRIMARY CARE PROVIDER if you experience any of the following: wheezing, coughing, shortness of breath fevers or chills Difficulty following your treatment plan, or difficulty taking medications CALL 911 OR GO TO THE EMERGENCY DEPARTMENT if you experience any of the fol lowing: Sudden, severe abdominal pain or nausea/vomiting Severe chest pain, or chest pain that radiates (moves) to your jaw or arm Sudden, severe shortness of breath or difficulty breathing Thank you for allowing us to participate in your care Pending Studies at Discharge: Yes Studies:: alpha1 antitrypsin Stand-Alone Forms: My [employer]TE[employer], Smoking Cessation Medications and DC Order Prescriptions: New ipratropium-albuterol 0.5 mg-3 mg(2.5 mg base)/3 mL Solution For Nebulization 3 ml NEB QIDR Qty: 180 0RF prednisone 10 mg tablet 10 mg PO DIRECTED Qty: 42 0RF Rx Instructions: see taper instructions - 60mgx2 50mgx2 40mgx2 30mgx2 20mgx2 10mgx2 azithromycin 250 mg tablet 250 mg PO DAILY 6 Days Qty: 6 0RF Rx Instructions: take 2 tabs day one, then one tab for a total of 5 days (DME) nebulizer and compressor Device See Rx Instructions .Route Qty: 1 0RF Rx Instructions: As directed Continued Anoro Ellipta 62.5-25 mcg/actuation blister with device 1 inh inhalation DAILY Qty: 90 3RF Rx Instructions: 90-day supply please, 3 refills albuterol sulfate [Ventolin HFA] 90 mcg/actuation HFA aerosol inhaler 1 - 2 puff INH Q4H PRN (Reason: shortness of breath) Qty: 8.5 1RF Discharge Orders: Discharge Order (Routine); Ordered 07/30/22 Ordered By: Filomena Caldera Admission Data Admit Date/Time: 07/28/22 12:13 Attending Provider: Subhash Galarza Admit Provider: Tyron White Primary Care Provider: Andre Butcher III Other Providers: Tyron White Resident Activity Tracking Resident Involvement: Resident Care Provided Care Provided: Adult Hospital Medicine
== END 2022-07-30 13:12 | disposition home or self-care (01) | DRG 189 ==
LOC: ED 09:41 → SUATTDRO 12:13 → 2W 12:13
DX: K40.90 Unilateral inguinal hernia, without obstruction or gangrene, not specified as recurrent; I10 Essential (primary) hypertension; J96.01 Acute respiratory failure with hypoxia; J44.1 Chronic obstructive pulmonary disease with (acute) exacerbation; Z87.891 Personal history of nicotine dependence; K21.9 Gastro-esophageal reflux disease without esophagitis

== ENCOUNTER 2025-01-26 06:45 | Inpatient (IN) ==
--- NOTE | 2025-01-26 06:58 | Emergency Department Note ---
History of Present Illness General Chief complaint: Hypertension Stated complaint: DIZZY, HYPERTENSION Time Seen by Provider: 01/26/25 06:50 History of Present Illness This is a 84-year-old male who presents to the emergency department via private vehicle accompanied by with complaints of "dizzy, hypertension". The patient notes that he has been seen here previously for similar. The patient notes last evening around 1011 PM he was sitting down watching TV. He then began to feel unwell and describes it as a dizziness sensation in his head. He is not able to further clarify the dizziness as vertiginous versus lightheadedness, rather notes he just began to feel dizzy. The patient denies any associated chest pain, shortness of breath, fevers, chills, nausea or vomiting. No speech trouble. No weakness. The patient does note elevated blood pressure as well. The patient denies any antihypertensives. The patient does note that when he experiences the symptoms that does produce some anxiety but he notes the anxiety did not precede the symptoms. Home Medications Medication Instructions Recorded Confirmed Type vitamin B complex 1 tab PO DAILY 12/01/23 01/10/25 History fluticasone fur. 100 mcg-umeclid 1 inh inhalation DAILY #60 ea 10/08/24 01/10/25 Rx 62.5 mcg-vilant 25 mcg inhalat.powder (Trelegy Ellipta) cholecalciferol (vitamin D3) 25 25 mcg PO DAILY 12/19/24 01/10/25 History mcg (1,000 unit) tablet (Vitamin D3) Allergies Allergy/AdvReac Type Severity Reaction Status Date / Time No Known Drug Allergies Allergy Verified 01/10/25 11:35 Past Med/Surg History Problem List (Updated 01/26/25 @ 09:50 by Jaleel Lr MD) Chronic sinusitis COPD (chronic obstructive pulmonary disease) Hypertension Aortic stenosis, severe Dizziness (Acute) Multiple pulmonary nodules Asthma-COPD overlap syndrome Nasal polyps (Chronic) Chronic sinusitis (Chronic) Antineutrophil cytoplasmic antibody (ANCA) positive Chronic rhinitis Moderate persistent asthma Eosinophilia Back pain Aortic stenosis (Acute) Hypertension (Chronic) Vitamin D deficiency (Chronic) Gastroesophageal reflux disease (Chronic) COPD (chronic obstructive pulmonary disease) (Chronic) Hypomagnesemia (Chronic) Medical History Anxiety Chronic obstructive pulmonary disease DAILY AND PRN INH Acute respiratory failure with hypoxia Cervical radicular pain Heart murmur Grade 3/6 at right upper sternal border Prostate cancer S/p prostatectomy 2005 Surgical History History of cataract surgery Bilat 07/20/24 and 08/01/24. H/O right inguinal hernia repair (09/06/22) Right Inguinal Hernia Repair with Mesh(Right) - Clement Meadows, DO History of laparotomy "TO FIX A PERFORATED ULCER ABOUT 20 YEARS AGO", [facility] [place] Hx of colonoscopy H/O prostatectomy 2006 in [place] Family History Brother Prostate cancer Father Myocardial infarction Heart disease Mother Myocardial infarction Diabetes Denies family history of Colon cancer Ovarian cancer Breast cancer Social History Smoking Status: Former smoker Tobacco Type: Cigarettes Age Started Using Tobacco: 16; Age Quit Using Tobacco: 48; packs per day: 1; Second Hand Exposure: No; Do You Dip or Chew Tobacco: No; Hx Alcohol Use: Yes Alcohol type: wine Alcohol Intake Frequency: 4 or More x per/Week Hx Substance Use: No Preferred Language: Tongan Communication Ability: Effective Visual Impairment: No Limitations Hearing Ability: Normal Curator Required: No Beliefs That Will Affect Care: None marital status: Current Living Situation: Spouse current occupational status: retired How many Children do You have: 4 Feels Safe at Home: Yes Childhood Exposure to Second-Hand Smoke: No Diet: regular Diet Comment: Mediterranean during the past year weight has: remained stable Dental Care, Regularly: Yes Physical Activity Frequency: 1-2 Times per Week Seatbelt Use: always Sunscreen Use: No Assistive Devices: Denture - Upper and Glasses Review of Systems A total of 10 systems reviewed and were otherwise negative Physical Exam Vital Signs Vital Signs - 24 hr 01/26/25 06:47 01/26/25 08:07 01/26/25 08:21 Temperature 36.8 C Temperature Source Temporal Artery Scan Pulse Rate 65 Pulse Rate from SpO2 Sensor 60 Pulse Rhythm Regular Pulse Strength Normal Respiratory Rate 16 16 Respiratory Effort / Characteristics Non-Labored Spontaneous Respiratory Depth Normal Respiratory Pattern Regular Blood Pressure 186/93 H 174/91 H Blood Pressure Mean 124 114 Pulse Oximetry 97 98 Oxygen Delivery Method Room Air Sepsis Recent Fever Within 48 Hours No Sepsis New/Unexplained Change in Mental Status No Sepsis Action Taken by Nursing No Action Required 01/26/25 08:30 01/26/25 08:39 01/26/25 08:48 Temperature Temperature Source Pulse Rate Pulse Rate from SpO2 Sensor 52 L 59 L Pulse Rhythm Pulse Strength Respiratory Rate 20 18 Respiratory Effort / Characteristics Respiratory Depth Respiratory Pattern Blood Pressure 161/94 H Blood Pressure Mean 124 Pulse Oximetry 98 98 Oxygen Delivery Method Sepsis Recent Fever Within 48 Hours Sepsis New/Unexplained Change in Mental Status Sepsis Action Taken by Nursing 01/26/25 09:00 01/26/25 09:07 01/26/25 09:30 Temperature Temperature Source Pulse Rate 59 L Pulse Rate from SpO2 Sensor Pulse Rhythm Pulse Strength Respiratory Rate Respiratory Effort / Characteristics Respiratory Depth Respiratory Pattern Blood Pressure 168/106 H 142/83 H Blood Pressure Mean 125 104 Pulse Oximetry Oxygen Delivery Method Sepsis Recent Fever Within 48 Hours Sepsis New/Unexplained Change in Mental Status Sepsis Action Taken by Nursing VITAL SIGNS - Vital signs and nursing notes were reviewed. Hypertensive, otherwise stable and afebrile. GENERAL -84-year-old male appearing his stated age who is in no acute distress. Communicates well with provider and answers questions appropriately. SKIN - Without rashes. No meningeal or petechial rash. HEAD - NC/AT. EYES - PERRL with EOMI bilaterally. Sclera anicteric. EARS - No deformities of external structures noted on gross examination bilaterally. Tympanic membranes pearly humphreys without retraction or bulging. No fluid or purulent material visualized behind the TM. Handle of malleus, umbo, cone of light, pars tensa/flaccid all easily visualized. NOSE - Midline and without cyanosis. No epistaxis or purulent drainage noted. MOUTH/OROPHARYNX - Without perioral cyanosis. Buccal mucosa pink and moist and without leukoplakia. Tongue midline with equal elevation of palate bilaterally. No tonsillar hypertrophy, erythema, or exudates noted. Fair dentition noted. NECK - Neck with FROM. Supple to palpation. No lymphadenopathy noted. No nuchal rigidity. LUNGS - Chest wall symmetric without accessory muscle use, intercostals retractions, or central cyanosis. Normal vesicular breath sounds CTA B/L. No wheezes, rales, or rhonchi appreciated. CARDIAC - RRR, systolic murmur noted EXTREMITIES - No clubbing or peripheral cyanosis. +5/5 strength noted in UE/LE bilaterally. NEUROLOGIC - Cranial nerves II through XII grossly intact. PSYCH -alert, oriented and pleasant on exam Course Administered Medications Heparin Sodium/Dextrose (Heparin 62849 Unit/500 Ml D5w) 25,000 units in 500 mls @ 26 mls/hr IV .[id number] CHRISTINA; Protocol Stop: 02/25/25 10:56 Last Admin: 01/26/25 11:53 Dose: 1,300 units/hr, 26 mls/hr Documented By: PASCALE Co-signed By: ARV Discontinued Medications Heparin Sodium/Dextrose (Heparin Iv Adult Wt-Based Standard *No* Initial Bolus Protocol) 1 each IV ONE STA; Protocol Stop: 01/26/25 09:38 Last Admin: 01/26/25 11:54 Dose: 1 each Documented By: PASCALE Ioversol (Optiray 320 125ml) 118 ml IV ONCE ONE Stop: 01/26/25 08:00 Last Admin: 01/26/25 07:59 Dose: 118 ml Documented By: RO Medical Decision Making Laboratory Data 01/26/25 07:00 01/26/25 07:00 Lab Results 01/26/25 01/26/25 Range/Units 07:00 07:24 WBC 7.90 (4.8-10.8) K/ul RBC 4.64 L (4.70-6.10) M/uL Hgb 14.2 (14.0-18.0) g/dl Hct 41.1 L (42.0-52.0) % MCV 88.6 (80.0-100.0) fL MCH 30.6 (25.0-34.0) pg MCHC 34.5 (32.0-36.0) g/dL RDW Std Deviation 42.3 (36.4-46.3) fL RDW Coeff of Mathew 13.1 (11.5-14.5) % Plt Count 251 (130-400) K/uL MPV 9.1 L (9.4-12.4) fL Immature Gran % (Auto) 0.1 % Neut % (Auto) 51.4 % Lymph % (Auto) 37.2 % [place] % (Auto) 6.1 % Eos % (Auto) 4.7 % Baso % (Auto) 0.5 % Neut # (Auto) 4.06 (1.40-6.50) K/uL Lymph # (Auto) 2.94 (1.20-3.40) K/uL [place] # (Auto) 0.48 (0.11-0.59) K/uL Eos # (Auto) 0.37 (0.00-0.50) K/uL Baso # (Auto) 0.04 (0.00-0.20) K/uL Immature Gran # (Auto) 0.01 (0.01-0.20) K/uL PT 11.3 (9.0-12.0) Seconds INR 1.0 (0.9-1.1) APTT 32 H (21-31) Seconds PTT Ratio 1.2 Sodium 129 L (136-145) mmol/L Potassium 3.8 (3.5-5.1) mmol/L Chloride 95 L (98-107) mmol/L Carbon Dioxide 27 (21-32) mmol/L Anion Gap 7 (3-11) BUN 11 (6-23) mg/dl Creatinine 0.94 (0.6-1.4) mg/dl Est Cr Clr Drug Dosing 58.2 ml/min eGFR 78.95 BUN/Creatinine Ratio 11.7 (10-20) Glucose 100 H (70-99(Fasting)) mg/dl Osmolality 272 L (280-300) mOsm/kg Calcium 9.4 (8.6-10.3) mg/dl Magnesium 1.7 (1.7-2.4) mg/dl Total Bilirubin 0.6 (0.2-1.0) mg/dl AST 16 (13-39) U/L ALT 13 (7-52) U/L Alkaline Phosphatase 71 (34-104) U/L Troponin I High Sens 4.3 (0-20) pg/ml Total Protein 7.0 (6.0-8.3) gm/dl Albumin 4.3 (3.4-5.0) gm/dl Globulin 2.7 (2.5-4.0) gm/dl Albumin/Globulin Ratio 1.6 (0.9-2) TSH 2.155 (0.300-4.500) uIu/ml Urine Color Yellow Urine Appearance Clear (Clear) Urine pH 6.0 (4.5-7.5) Ur Specific [place] 1.009 (1.000-1.030) Urine Protein Negative (Negative) Urine Glucose (UA) Negative (Negative) Urine Ketones Negative (Negative) Urine Blood Trace H (Negative) Urine Nitrite Negative (Negative) Urine Bilirubin Negative (Negative) Urine Urobilinogen Negative (Negative) Ur Leukocyte Esterase Negative (Negative) Urine WBC (Auto) 0-5 (0-5) /hpf Urine RBC (Auto) 0-2 (0-2) /hpf U Hyaline Cast (Auto) 0-2 (0-2) /lpf U Epithel Cells (Auto) 0-2 (0-2) /hpf Urine Bacteria (Auto) None Seen (None Seen) Urine Comment Anaplasma Smear See Comment Babesia Smear See Comment Lyme Disease Screen Negative (Negative) Imaging Data Radiologist's Impression: Chest X-Ray 01/26/25 06:58 EXAM: XR chest 1V portable CLINICAL HISTORY: dizziness TECHNIQUE: An X-ray image of the chest was obtained in AP projection. COMPARISON: 01/10/2025. FINDINGS: Pulmonary Parenchyma: Interval stable, small, subcentimeter, rounded, tiny nodule is seen in the right lower zone. No evidence of consolidation or collapse. No evidence of pleural effusion or pleural thickening. Heart and Mediastinum: Heart size and shape are normal. No mediastinal widening or masses are seen. No hilar or mediastinal lymphadenopathy. Bony Thorax: The bony thorax appears intact without fractures or deformities. Soft Tissues: The soft tissues overlying the chest wall are unremarkable. IMPRESSION: 1. No evidence of acute cardiopulmonary abnormality is seen. 2. No interval changes. Electronically signed by Reid Bynum 01-26-2025 09:09 AM Head CTA 01/26/25 06:58 HISTORY: Dizziness TECHNIQUE: CT of the head without contrast. CT Angiography of the head was performed following uneventful administration of IV contrast. Images are presented in axial, sagittal, coronal reformats. Coronal and sagittal 3D MIP reconstructions are provided. COMPARISON: CTA of the neck from the same day. FINDINGS: CT head: No evidence of acute intracranial hemorrhage, abnormal extra-axial fluid collection, mass effect, or midline shift. Mild volume loss and chronic microvascular ischemic changes. Hypodensity in the left insular region may represent remote lacunar type infarct or enlarged perivascular space. Ventricular caliber is appropriate for the degree of volume loss. The fourth ventricle is midline. The basal cisterns are patent. Globes and orbits are unremarkable.Extensive paranasal sinus opacification with mucoperiosteal thickening and trace air-fluid levels consistent with acute on chronic sinusitis. Mastoid air cells are clear. No acute calvarial fracture. CTA head: Angiography: The intradural vertebral arteries are patent. The basilar artery is patent. The distal basilar artery is diminutive and becomes a diminutive left P1 posterior cerebral artery segment with the majority of left posterior cerebral artery flow coming through a robust left posterior communicating artery. The left posterior cerebral artery is patent. origin of the right posterior cerebral artery. The right posterior cerebral artery is patent. Mild atherosclerotic calcification in the cavernous internal carotid arteries without hemodynamically significant stenosis. Both A1 segments are present and patent. No definite anterior communicating artery is visualized. The anterior cerebral artery branches are patent. The M1 and proximal M2 segment branches are patent bilaterally. The more distal MCA branches appear symmetric. Soft tissues: No enhancing intracranial mass or vascular malformation. Globes and orbits are unremarkable. Soft tissues about the skull base and scalp are unremarkable. IMPRESSION: CT head: * No acute intracranial findings. CTA Head: * No evidence of central vessel occlusion or focal hemodynamically significant stenosis. * Anatomic variation of the [place] as detailed above. * Acute on chronic sinusitis. * Mild atherosclerotic vascular disease. ACT 112: Positive. There are findings on this exam that require communication between the performing entity and the patient following Patient Test Result Information Act ([place] ACT 112) guidelines. Electronically signed by Daryn Lerma 01-26-2025 08:23 AM Neck CTA 01/26/25 06:58 HISTORY: Dizziness. TECHNIQUE: CT Angiography of the neck was performed following uneventful administration ofIV contrast. Images are presented in axial, sagittal, coronal reformats. Coronal and sagittal 3D MIP reconstructions are provided. COMPARISON: None. FINDINGS: Angiography: Four-vessel branch pattern of the aortic arch with the left vertebral artery arising directly from the arch. The common carotid arteries are patent. Mild atherosclerotic plaque at the carotid bifurcations without hemodynamically significant stenosis. The cervical internal carotid arteries are patent. The cavernous and supraclinoid internal carotid arteries appear patent. The cervical vertebral arteries are patent. The intradural vertebral arteries are patent. The basilar artery is patent. The cervical right vertebral artery is slightly dominant. The left vertebral artery arises from the arch. Soft tissues: Multiple bilateral thyroid nodules require further evaluation with ultrasound. The soft tissues of the neck are otherwise unremarkable. Lung apices: Multiple small nodules in the right lung apex Favor parenchymal scarring with the largest measuring 0.5 cm in diameter. Bones: Mucosal thickening and small air-fluid levels in the maxillary sinuses. Partial opacification of the ethmoid air cells. Severe degenerative changes of the spine with multilevel central canal and neural foraminal stenosis. IMPRESSION: * No evidence of occlusion, hemodynamically significant stenosis, or dissection. * Mild atherosclerotic vascular disease. * Multiple bilateral thyroid nodules. Further evaluation is recommended with nonemergent thyroid ultrasound. * Multiple small nodules in the right lung apex favoring parenchymal scarring. The largest measures 0.5 cm in diameter. Follow-up low-dose chest CT is recommended in 3 months to evaluate for stability. * Acute on chronic sinusitis. ACT 112: Positive. There are findings on this exam that require communication between the performing entity and the patient following Patient Test Result Information Act ([place] ACT 112) guidelines. Electronically signed by Daryn Lerma 01-26-2025 08:17 AM MDM Narrative Patient was seen and evaluated as above in room B02. Review was performed of nursing notes and vital signs. I did review pertinent previous visits and patient history. After obtaining a thorough history and physical examination the above work up was performed. Patient presents to us today for evaluation of the above symptoms. The patient is well-appearing and nontoxic on examination. No focal deficit. GCS 15. NIHSS is 0. Options of care were discussed with patient and at bedside. IV access was established. Labs were drawn. EKG was performed per my interpretation is reveals normal sinus rhythm at a rate of 70 bpm. QTc 434 per QRS 142. No ST elevation. RBBB noted. Labs reveal no leukocytosis or concerning anemia. No emergent metabolic disturbance. Hyponatremia 129. No evidence of kidney or liver failure. Troponin negative. TSH was euthyroid state. Urinalysis negative. Preliminary tickborne testing is negative but still waiting on the send out test for Anaplasma, Babesia and Lyme is also pending. The initial peripheral smear for Anaplasma/Babesia is negative. At this time we will proceed with a chest x-ray as well as CT angio studies of the head and neck with Noncon head first. It is felt that the benefit of the contrasted CTs outweigh risk. I did thoroughly review the patient's recent visits to include the imaging as well. CT imaging is as above. This was essentially negative from an emergent standpoint. The patient on reassessment continues with an NIH stroke scale of 0. The patient's blood pressure did improve into the 160 systolic without intervention. At this time noting ongoing symptoms I do believe that further evaluation and management in the inpatient setting is warranted. Case discussed with the hospitalist service. Please refer to further documentation regarding his stay. Chest x-ray negative for acute process. GCS: 15 In the evaluation and treatment of this patient the following differential diagnoses were entertained: CVA, TIA, electrolyte disturbance, hypertensive urgency/emergency, anxiety, head injury, among others. Impression & Plan Dizziness Discharge Plan Visit Data Chief Complaint: Hypertension Stated Complaint: DIZZY, HYPERTENSION ED Provider: Richardson Kay ED Midlevel Provider: Steve Costello Discharge Problem: Dizziness Patient Disposition: Admitted As Inpatient Condition: Fair Discharge Instructions Interventions: ED Discharge Assessment Last Done: 01/26/25 10:23
[2025-01-26 07:10] LABS: Hematocrit (blood only) 41.1 % (42.0-52.0); Hemoglobin 14.2 g/dl (14.0-18.0); Immature Granulocytes # (auto) 0.01 K/uL (0.01-0.20); Immature Granulocytes % (auto) 0.1 %; Mean Corpuscular Hemoglobin 30.6 pg (25.0-34.0); Mean Corpuscular Volume 88.6 fL (80.0-100.0); Platelet Count 251 K/uL (130-400); RDW Standard Deviation 42.3 fL (36.4-46.3); Red Blood Count 4.64 M/uL (4.70-6.10); White Blood Count 7.90 K/ul (4.8-10.8)
[2025-01-26 07:32] LABS: Alanine Aminotransferase 13.0 U/L (7-52); Albumin Globulin Ratio 1.6 (0.9-2); Alkaline Phosphatase 71.0 U/L (34-104); Anion Gap 7.0 (3-11); Bilirubin,Total 0.6 mg/dl (0.2-1.0); Blood Urea Nitrogen 11.0 mg/dl (6-23); Calcium 9.4 mg/dl (8.6-10.3); Carbon Dioxide 27.0 mmol/L (21-32); Chloride 95.0 mmol/L (98-107); Creatinine Clr Calc Pharmacy 58.2 ml/min; Globulin 2.7 gm/dl (2.5-4.0); Glucose 100.0 mg/dl (70-99(Fasting)); Magnesium 1.7 mg/dl (1.7-2.4); Potassium 3.8 mmol/L (3.5-5.1); Sodium 129.0 mmol/L (136-145); Total Protein 7.0 gm/dl (6.0-8.3)
[2025-01-26 07:42] LABS: INR 1.0 (0.9-1.1); Partial Thromboplastin Time 32 Seconds (21-31); Prothrombin Time 11.3 Seconds (9.0-12.0)
[2025-01-26 07:43] LABS: Appearance Urine Clear (Clear); Bacteria Urine Automated None Seen (None Seen); Cast Urine Automated 0-2 /lpf (0-2); Epithelial Cell Urine Auto 0-2 /hpf (0-2); Glucose Urine UA Negative (Negative); RBC Urine Automated 0-2 /hpf (0-2); WBC Urine Automated 0-5 /hpf (0-5)
[2025-01-26 07:49] LABS: Thyroid Stimulating Hormone 2.155 uIu/ml (0.300-4.500)
[2025-01-26] MEDS: OPTIRAY 320 125ml IV ONE (07:59)
--- NOTE | 2025-01-26 08:17 | CT Scan Report ---
HISTORY: Dizziness. TECHNIQUE: CT Angiography of the neck was performed following uneventful administration ofIV contrast. Images are presented in axial, sagittal, coronal reformats. Coronal and sagittal 3D MIP reconstructions are provided. COMPARISON: None. FINDINGS: Angiography: Four-vessel branch pattern of the aortic arch with the left vertebral artery arising directly from the arch. The common carotid arteries are patent. Mild atherosclerotic plaque at the carotid bifurcations without hemodynamically significant stenosis. The cervical internal carotid arteries are patent. The cavernous and supraclinoid internal carotid arteries appear patent. The cervical vertebral arteries are patent. The intradural vertebral arteries are patent. The basilar artery is patent. The cervical right vertebral artery is slightly dominant. The left vertebral artery arises from the arch. Soft tissues: Multiple bilateral thyroid nodules require further evaluation with ultrasound. The soft tissues of the neck are otherwise unremarkable. Lung apices: Multiple small nodules in the right lung apex Favor parenchymal scarring with the largest measuring 0.5 cm in diameter. Bones: Mucosal thickening and small air-fluid levels in the maxillary sinuses. Partial opacification of the ethmoid air cells. Severe degenerative changes of the spine with multilevel central canal and neural foraminal stenosis. IMPRESSION: * No evidence of occlusion, hemodynamically significant stenosis, or dissection. * Mild atherosclerotic vascular disease. * Multiple bilateral thyroid nodules. Further evaluation is recommended with nonemergent thyroid ultrasound. * Multiple small nodules in the right lung apex favoring parenchymal scarring. The largest measures 0.5 cm in diameter. Follow-up low-dose chest CT is recommended in 3 months to evaluate for stability. * Acute on chronic sinusitis. ACT 112: Positive. There are findings on this exam that require communication between the performing entity and the patient following Patient Test Result Information Act ([place] ACT 112) guidelines. Electronically signed by Daryn Lerma 01-26-2025 08:17 AM
--- NOTE | 2025-01-26 08:23 | CT Scan Report ---
HISTORY: Dizziness TECHNIQUE: CT of the head without contrast. CT Angiography of the head was performed following uneventful administration of IV contrast. Images are presented in axial, sagittal, coronal reformats. Coronal and sagittal 3D MIP reconstructions are provided. COMPARISON: CTA of the neck from the same day. FINDINGS: CT head: No evidence of acute intracranial hemorrhage, abnormal extra-axial fluid collection, mass effect, or midline shift. Mild volume loss and chronic microvascular ischemic changes. Hypodensity in the left insular region may represent remote lacunar type infarct or enlarged perivascular space. Ventricular caliber is appropriate for the degree of volume loss. The fourth ventricle is midline. The basal cisterns are patent. Globes and orbits are unremarkable.Extensive paranasal sinus opacification with mucoperiosteal thickening and trace air-fluid levels consistent with acute on chronic sinusitis. Mastoid air cells are clear. No acute calvarial fracture. CTA head: Angiography: The intradural vertebral arteries are patent. The basilar artery is patent. The distal basilar artery is diminutive and becomes a diminutive left P1 posterior cerebral artery segment with the majority of left posterior cerebral artery flow coming through a robust left posterior communicating artery. The left posterior cerebral artery is patent. origin of the right posterior cerebral artery. The right posterior cerebral artery is patent. Mild atherosclerotic calcification in the cavernous internal carotid arteries without hemodynamically significant stenosis. Both A1 segments are present and patent. No definite anterior communicating artery is visualized. The anterior cerebral artery branches are patent. The M1 and proximal M2 segment branches are patent bilaterally. The more distal MCA branches appear symmetric. Soft tissues: No enhancing intracranial mass or vascular malformation. Globes and orbits are unremarkable. Soft tissues about the skull base and scalp are unremarkable. IMPRESSION: CT head: * No acute intracranial findings. CTA Head: * No evidence of central vessel occlusion or focal hemodynamically significant stenosis. * Anatomic variation of the [place] as detailed above. * Acute on chronic sinusitis. * Mild atherosclerotic vascular disease. ACT 112: Positive. There are findings on this exam that require communication between the performing entity and the patient following Patient Test Result Information Act ([place] ACT 112) guidelines. Electronically signed by Daryn Lerma 01-26-2025 08:23 AM
--- NOTE | 2025-01-26 09:10 | XRay Report ---
EXAM: XR chest 1V portable CLINICAL HISTORY: dizziness TECHNIQUE: An X-ray image of the chest was obtained in AP projection. COMPARISON: 01/10/2025. FINDINGS: Pulmonary Parenchyma: Interval stable, small, subcentimeter, rounded, tiny nodule is seen in the right lower zone. No evidence of consolidation or collapse. No evidence of pleural effusion or pleural thickening. Heart and Mediastinum: Heart size and shape are normal. No mediastinal widening or masses are seen. No hilar or mediastinal lymphadenopathy. Bony Thorax: The bony thorax appears intact without fractures or deformities. Soft Tissues: The soft tissues overlying the chest wall are unremarkable. IMPRESSION: 1. No evidence of acute cardiopulmonary abnormality is seen. 2. No interval changes. Electronically signed by Reid Bynum 01-26-2025 09:09 AM
--- NOTE | 2025-01-26 09:51 | History & Physical Report ---
Date of Service January 26, 2025 Assessment & Plan (1) Aortic stenosis, severe: Plan: Suspected symptomatic severe aortic valve stenosis. Will allow blood pressure to run high. Heparin drip has been ordered. Cardiology consultation requested. He may be a candidate for TAVR procedure (2) Hypertension: Plan: Will allow systolic blood pressure to run high and avoid afterload reduction which could worsen the aortic valve gradient. (3) COPD (chronic obstructive pulmonary disease): Plan: Stable. Chest x-ray unremarkable. Continue Trelegy daily (4) Chronic sinusitis: Plan: Known. 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 He denies actual vertigo or syncope and denies ataxia when he is walking. He said the symptoms recurred this morning and he came to the ED for evaluation. His CT scan is negative for acute CVA and CTA of the head / neck revealed no significant obstruction. He has known severe aortic valve stenosis on his most recent cardiac echo done earlier this year. Aortic valve velocities are quite elevated and the pressure gradient is markedly elevated. I am concerned he may be having symptomatic aortic valve stenosis. Heparin drip has been ordered and cardiology consultation requested. He may be a candidate for a TAVR procedure. Systolic blood pressure is running in the 170-180 range and I do not think lowering his blood pressure is advisable at this time. The ED physician has been cautioned to avoid treating his hypertension for now. Heparin drip has been started. Cardiology consultation requested. He will be admitted to PCU with telemetry Allergies Allergy/AdvReac Type Severity Reaction Status Date / Time No Known Drug Allergies Allergy Verified 01/10/25 11:35 Home Medications Medication Instructions Recorded Confirmed Type vitamin B complex 1 tab PO DAILY 12/01/23 01/10/25 History fluticasone fur. 100 mcg-umeclid 1 inh inhalation DAILY #60 ea 10/08/24 01/10/25 Rx 62.5 mcg-vilant 25 mcg inhalat.powder (Trelegy Ellipta) cholecalciferol (vitamin D3) 25 25 mcg PO DAILY 12/19/24 01/10/25 History mcg (1,000 unit) tablet (Vitamin D3) Past Med/Surg History Problem List (Updated 01/26/25 @ 09:50 by Jaleel Lr MD) Chronic sinusitis COPD (chronic obstructive pulmonary disease) Hypertension Aortic stenosis, severe Dizziness (Acute) Multiple pulmonary nodules Asthma-COPD overlap syndrome Nasal polyps (Chronic) Chronic sinusitis (Chronic) Antineutrophil cytoplasmic antibody (ANCA) positive Chronic rhinitis Moderate persistent asthma Eosinophilia Back pain Aortic stenosis (Acute) Hypertension (Chronic) Vitamin D deficiency (Chronic) Gastroesophageal reflux disease (Chronic) COPD (chronic obstructive pulmonary disease) (Chronic) Hypomagnesemia (Chronic) Medical History Anxiety Chronic obstructive pulmonary disease DAILY AND PRN INH Acute respiratory failure with hypoxia Cervical radicular pain Heart murmur Grade 3/6 at right upper sternal border Prostate cancer S/p prostatectomy 2005 Surgical History History of cataract surgery Bilat 07/20/24 and 08/01/24. H/O right inguinal hernia repair (09/06/22) Right Inguinal Hernia Repair with Mesh(Right) - Clement Meadows, DO History of laparotomy "TO FIX A PERFORATED ULCER ABOUT 20 YEARS AGO", [facility] [place] Hx of colonoscopy H/O prostatectomy 2005 in [place] Family History Brother Prostate cancer Father Myocardial infarction Heart disease Mother Myocardial infarction Diabetes Denies family history of Colon cancer Ovarian cancer Breast cancer Social History Smoking Status: Never smoker Tobacco Type: Cigarettes Age Started Using Tobacco: 16; Age Quit Using Tobacco: 48; packs per day: 1; Second Hand Exposure: No; Do You Dip or Chew Tobacco: No; Hx Alcohol Use: Yes (Glass of wine daily) Alcohol type: wine Alcohol Intake Frequency: 4 or More x per/Week Hx Substance Use: No Preferred Language: Azeri Communication Ability: Effective Visual Impairment: No Limitations Hearing Ability: Normal Ammonia Box Operator Required: No Beliefs That Will Affect Care: None marital status: Current Living Situation: Spouse current occupational status: retired How many Children do You have: 4 Feels Safe at Home: Yes Childhood Exposure to Second-Hand Smoke: No Diet: regular Diet Comment: Mediterranean during the past year weight has: remained stable Dental Care, Regularly: Yes Physical Activity Frequency: 1-2 Times per Week Seatbelt Use: always Sunscreen Use: No Assistive Devices: Denture - Upper and Glasses Review of Systems 2 Review of Systems: Constitutionalno fever or chills ENTno blurred vision, no double vision, no epistaxis, no sore throat Respiratoryno cough, no wheezing, no shortness of breath Cardiacno palpitations, no chest pain, no syncope Francia nausea, vomiting, diarrhea, melena, hematochezia GUno urinary retention, no urinary incontinence, no dysuria, no hematuria Musculoskeletalno joint pain, no muscle tenderness Skinno bruising, no rashes, no pruritus Neurono isolated weakness, no paresthesia, no weakness Psychno depression, no anxiety Physical Exam 2 Physical Exam: General-alert and oriented x3, no fever, no chills HEENT-head atraumatic and normocephalic, pupils equal and reactive to light, extraocular muscles intact Neck-no lymphadenopathy or thyromegaly, trachea midline Chest-clear to auscultation. No rales, wheezing or rhonchi Cardiac-regular rate and rhythm, normal S1 and S2. Grade 4/6 harsh nearly pansystolic murmur across the precordium Abdomen-normal bowel sounds, no hepatosplenomegaly Extremities-no cyanosis, clubbing, or edema Neuro-cranial nerves II through XII intact, motor and sensory function within normal limits, strength symmetrical, no focal deficits Psych-normal affect, normal mood Results & Data Results & Data Vital Signs (Past 12 Hours) Vital Signs Temp Pulse Resp BP Pulse Ox O2 Del Method 01/26/25 09:07 59 L 01/26/25 06:47 36.8 C 65 16 186/93 H 97 Room Air Laboratory Results 01/26/25 07:00 01/26/25 07:00 Code Status & VTE Plan Code Status Full code PG Care Time/CCT Total # of Minutes Spent Total Time Spent with Patient: Total time spent is greater than 50% in coordination of care (as documented) at patient's floor/unit and/or counseling patient: Coding Level of Care Code 53811 INT INP/OBS CARE 3/75MIN Diagnoses Aortic stenosis, severe I35.0 Hypertension I10 COPD (chronic obstructive pulmonary disease) J44.9 Chronic sinusitis J32.9
[2025-01-26] MEDS ORDERED: HEPARIN 25000 UNIT/500 ML D5W 25,000 UNITS/500 ML BAG IV SCH (10:00)
[2025-01-26] MEDS ORDERED: ACETAMINOPHEN 325 MG TAB PO PRN (10:57)
[2025-01-26] MEDS ORDERED: ONDANSETRON INJ 2 MG/ML 2 ML VIAL IV PRN (10:57)
[2025-01-26] MEDS ORDERED: Heparin IV Adult Wt-Based Standard *NO* INITIAL Bolus Protocol IV STA (10:57)
[2025-01-26] MEDS ORDERED: Nursing to Pharmacy Communication SCH (11:45)
[2025-01-26] MEDS: HEPARIN 25000 UNIT/500 ML D5W 25,000 UNITS/500 ML BAG IV SCH (11:53)
[2025-01-26] MEDS: Heparin IV Adult Wt-Based Standard *NO* INITIAL Bolus Protocol IV STA (11:54)
[2025-01-26] MEDS: FLUTICASONE/UMECLIDIN/VILANTER 100-62.5-25 INH SCH (13:10)
--- NOTE | 2025-01-26 13:16 | Electrocardiogram Report ---
Test Reason : Blood Pressure : */* mmHG Vent. Rate : 70 BPM Atrial Rate : 70 BPM P-R Int : 140 ms QRS Dur : 142 ms QT Int : 402 ms P-R-T Axes : 65 26 38 degrees QTcB Int : 434 ms Normal sinus rhythm Right bundle branch block Abnormal ECG When compared with ECG of 10-Jan-2025 09:30, T wave inversion no longer evident in Inferior leads Confirmed by Maddi Church (Mee) on 01/26/2025 1:15:55 PM Referred By: REFERRED SELF Confirmed By: Maddi Church
[2025-01-26 18:36] LABS: ANTI-Xa, UFH(UnfractionatedHep 0.52 IU/ml (0.3-0.7)
[2025-01-27 06:16] LABS: Hematocrit (blood only) 38.8 % (42.0-52.0); Hemoglobin 13.6 g/dl (14.0-18.0); Immature Granulocytes # (auto) 0.01 K/uL (0.01-0.20); Immature Granulocytes % (auto) 0.2 %; Mean Corpuscular Hemoglobin 32.0 pg (25.0-34.0); Mean Corpuscular Volume 91.3 fL (80.0-100.0); Platelet Count 216 K/uL (130-400); RDW Standard Deviation 43.5 fL (36.4-46.3); Red Blood Count 4.25 M/uL (4.70-6.10); White Blood Count 6.02 K/ul (4.8-10.8)
[2025-01-27 06:53] LABS: Anion Gap 5.0 (3-11); Blood Urea Nitrogen 13.0 mg/dl (6-23); Calcium 8.8 mg/dl (8.6-10.3); Carbon Dioxide 26.0 mmol/L (21-32); Chloride 102.0 mmol/L (98-107); Creatinine Clr Calc Pharmacy 54.6 ml/min; Glucose 103.0 mg/dl (70-99(Fasting)); Potassium 3.7 mmol/L (3.5-5.1); Sodium 133.0 mmol/L (136-145)
[2025-01-27 06:55] LABS: ANTI-Xa, UFH(UnfractionatedHep 0.88 IU/ml (0.3-0.7)
[2025-01-27 07:40] VITALS: RESP 18
[2025-01-27] MEDS: CHOLECALCIFEROL 25 MCG (1000 UNITS) TAB PO SCH (08:31)
[2025-01-27] MEDS: VITAMIN B COMPLEX TAB PO SCH (08:31)
[2025-01-27] MEDS ORDERED: NON-FORMULARY MEDICATION (Fluticasone-Umeclidin-Vilanter [Trelegy Ellipta] 100-62.5-25 mcg INH SCH (09:00)
[2025-01-27] MEDS ORDERED: UMECLIDINIUM/VILANTEROL 62.5/25MCG 7 PUFFS/INHALER INH SCH (09:00)
[2025-01-27] MEDS ORDERED: FLUTICASONE FUROATE 100MCG 14 PUFFS/INHALER INH SCH (09:00)
[2025-01-27] MEDS ORDERED: NON-FORMULARY MEDICATION (Vitamin B Complex Tablet) PO SCH (09:00)
[2025-01-27 11:50] VITALS: BP 150/76; PULSE 60; TEMP 97.5; O2SAT 98
--- NOTE | 2025-01-27 12:27 | Cardiology Consultation ---
Date of Consultation January 27, 2025 Assessment & Plan (1) Aortic stenosis, severe: -Asymptomatic. No CHF, angina pectoris, or syncope. -Uncertain if this is a factor in his dizziness. -Would continue close follow-up and yearly surveillance echocardiograms. -Would discontinue heparin. -Stable for hospital discharge. -I will arrange for outpatient follow-up. (2) Hypertension: -Permissive hypertension in the face of severe aortic stenosis. -Monitor blood pressure as an outpatient. History of Present Illness Attending Physician: Avtar Ramirez History of Present Illness Dr. Kemp is an 84-year-old male admitted yesterday with a headache and lightheadedness. The patient has known severe aortic stenosis, therefore, this consultation was ordered. Of note, the patient has not yet met with a manager nicu. The patient was in his usual state of health until the evening prior to presentation. He began to note some mild dizziness and a headache. He was able to fall asleep Monday night, however, awoke Monday morning with the same symptoms. Therefore, he proceeded to the emergency room for further care. His evaluation here was unremarkable. He was started on intravenous heparin and admitted. The patient is vigorous on a daily basis caring for his home and property. He also exercises on a treadmill for 20 minutes at least 2 days each week at the [facility]. He has not experienced any exertional chest pain or limiting dyspnea. He further denies syncope, presyncope, PND, orthopnea, palpitations, lower extremity edema, and claudication. We have discussed his severe aortic stenosis in detail. We have also discussed the indications for valve replacement. His medications were reviewed in detail. Past medical and surgical history 1. Hypertension 2. Severe aortic stenosis 3. RBBB 4. COPD 5. GERD 6. Peptic ulcer disease 7. Vitamin D deficiency 8. Nasal polyps 9. Prostate carcinoma 10. [id number] 11. Intraocular lens implants 12. 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 No tobacco 1 glass of wine per day Family history Noncontributory Review of systems A 10 point review of system was undertaken and negative except that described above. Allergies Allergy/AdvReac Type Severity Reaction Status Date / Time No Known Drug Allergies Allergy Verified 01/10/25 11:35 Home Medications Medication Instructions Recorded Confirmed Type vitamin B complex 1 tab PO DAILY 12/01/23 01/10/25 History fluticasone fur. 100 mcg-umeclid 1 inh inhalation DAILY #60 ea 10/08/24 01/10/25 Rx 62.5 mcg-vilant 25 mcg inhalat.powder (Trelegy Ellipta) cholecalciferol (vitamin D3) 25 25 mcg PO DAILY 12/19/24 01/10/25 History mcg (1,000 unit) tablet (Vitamin D3) Patient History Medical History Anxiety Chronic obstructive pulmonary disease DAILY AND PRN INH Acute respiratory failure with hypoxia Cervical radicular pain Heart murmur Grade 3/6 at right upper sternal border Prostate cancer S/p prostatectomy 2005 Surgical History History of cataract surgery Bilat 07/20/24 and 08/01/24. H/O right inguinal hernia repair (09/06/22) Right Inguinal Hernia Repair with Mesh(Right) - Clement Meadows, DO History of laparotomy "TO FIX A PERFORATED ULCER ABOUT 20 YEARS AGO", [facility] [place]x of colonoscopy H/O prostatectomy 2006 in [place] Family History Brother Prostate cancer Father Myocardial infarction Heart disease Mother Myocardial infarction Diabetes Denies family history of Colon cancer Ovarian cancer Breast cancer Social History Smoking Status: Former smoker Tobacco Type: Cigarettes Age Started Using Tobacco: 16; Age Quit Using Tobacco: 48; packs per day: 1; Second Hand Exposure: No; Do You Dip or Chew Tobacco: No; Hx Alcohol Use: Yes Alcohol type: wine Alcohol Intake Frequency: 4 or More x per/Week Hx Substance Use: No Preferred Language: Russian Communication Ability: Effective Visual Impairment: No Limitations Hearing Ability: Normal Passenger Representative Required: No Beliefs That Will Affect Care: None marital status: Current Living Situation: Spouse current occupational status: retired How many Children do You have: 4 Feels Safe at Home: Yes Childhood Exposure to Second-Hand Smoke: No Diet: regular Diet Comment: Mediterranean during the past year weight has: remained stable Dental Care, Regularly: Yes Physical Activity Frequency: 1-2 Times per Week Seatbelt Use: always Sunscreen Use: No Assistive Devices: Denture - Upper and Glasses Physical Exam Physical Exam: In general is well-developed well-nourished white male in no acute distress. HEENT exam is negative. Neck is supple with delayed and prolonged carotid upstrokes. No obvious bruits or transmitted murmurs. Cardiovascular exam reveals a regular rhythm with distant heart sounds. He 2/6 crescendo decrescendo systolic murmur is heard loudest at the apex. S2 is not audible at the apex. Lungs are clear without rales, rhonchi, or wheezes. Abdomen is soft and nontender without bruits. Extremities reveal intact radial artery pulses bilaterally. There is no peripheral edema. Results & Data Vital Signs (Past 12 Hours) Vital Signs Temp Pulse Resp BP Pulse Ox O2 Del Method 01/27/25 11:47 36.4 C L 60 18 150/76 H 98 Room Air 01/27/25 07:40 36.5 C 55 L 18 144/79 H 95 Room Air 01/27/25 04:14 36.3 C L 52 L 16 131/78 97 Room Air 01/27/25 00:29 36.4 C L 53 L 18 135/75 97 Room Air Laboratory Results CBC and electrolytes are unremarkable. High-sensitivity troponin is normal at 4.3. TSH is normal at 2.16. Diagnostic Findings Echocardiogram performed on January 01 noted normal left ventricular systolic function with an ejection fraction of 60 to 65%. There is mild LVH along with severe aortic stenosis. There is mild mitral regurgitation. EKG notes sinus rhythm with a complete right bundle branch block. Chest x-ray shows no acute disease. PG Care Time/CCT Total # of Minutes Spent Total Time Spent with Patient: Total time spent is greater than 50% in coordination of care (as documented) at patient's floor/unit and/or counseling patient: Coding Level of Care Code 09278 INT INP/OBS CARE 3/75MIN Diagnoses Aortic stenosis, severe I35.0 Primary hypertension I10
--- NOTE | 2025-01-27 12:49 | Discharge Summary ---
Discharge Summary Date of Service January 27, 2025 Principal Dx & Hospital Course #1 = Principal Diagnosis (1) Aortic stenosis, severe: Suspected symptomatic severe aortic valve stenosis. Will allow blood pressure to run high. Heparin drip has been ordered. Cardiology consultation requested. He may be a candidate for TAVR procedure (2) Hypertension: Will allow systolic blood pressure to run high and avoid afterload reduction which could worsen the aortic valve gradient. (3) COPD (chronic obstructive pulmonary disease): Stable. Chest x-ray unremarkable. Continue Trelegy daily (4) Chronic sinusitis: Known. Outpatient ENT follow-up Plan To be determined Admission HPI Per Admitting Provider 84-year-old white male who describes a "funny" sensation in his head last night while sitting. He denies actual vertigo or syncope and denies ataxia when he is walking. He said the symptoms recurred this morning and he came to the ED for evaluation. His CT scan is negative for acute CVA and CTA of the head / neck revealed no significant obstruction. He has known severe aortic valve stenosis on his most recent cardiac echo done earlier this year. Aortic valve velocities are quite elevated and the pressure gradient is markedly elevated. I am concerned he may be having symptomatic aortic valve stenosis. Heparin drip has been ordered and cardiology consultation requested. He may be a candidate for a TAVR procedure. Systolic blood pressure is running in the 170-180 range and I do not think lowering his blood pressure is advisable at this time. The ED physician has been cautioned to avoid treating his hypertension for now. Hepar in drip has been started. Cardiology consultation requested. He will be admitted to PCU with telemetry Discharge Plan Discharge Items Patient Disposition: Home - Self-Care Reason For Visit: SUSPECTED SYMPTOMATIC Discharge Diagnosis: aoritc stenosis Condition on Discharge: Fair Activity: Resume your previous activity Non-emergency contact: Primary Care Provider Call non-emergency contact if: you have any medication questions Follow-up/Referrals: Andre Butcher III, CRNP [Primary Care Provider] - Diet: Regular Addtl Attending Provider Instructions: Recommend no weight training until you followup with your Oil Analyst. Recommend no heavy strenuous activity in the short term until cleared by the cinder block mason. Will add lisinopril for blood pressure control. Some patient can develop a dry cough, if this occurs, please tell your regular doctor and they can switch it to a different family. Please return to the hosptial if you become dizzy, devlop chest pain, or shortness of breath. Pending Studies at Discharge: No Stand-Alone Forms: [facility], Smoking Cessation Medications and DC Order Prescriptions: New lisinopril 2.5 mg tablet 2.5 mg PO PM Qty: 30 0RF Continued Trelegy Ellipta 100-62.5-25 mcg blister with device 1 inh inhalation DAILY Qty: 60 9RF vitamin B complex Tablet 1 tab PO DAILY cholecalciferol (vitamin D3) [Vitamin D3] 25 mcg (1,000 unit) tablet 25 mcg PO DAILY Discharge Orders: Discharge Order (Routine); Ordered 01/27/25 Ordered By: Avtar Ramirez Admission Data Admit Date/Time: 01/26/25 09:32 Attending Provider: Avtar Ramirez Admit Provider: Jaleel Lr Primary Care Provider: Andre Butcher III Other Providers: Jaleel Lr; Tobi Joshua; Subhash Gutierrez; Yash Rajan; Buddy Arenas; Que Melendez Jr; Lj Mar; Sylwia Maher; Kylee Bravo; King Lundy; King Solis; Randa Nash; Zac Delgado; Mona Méndez; Zac Tuttle; Dilip Willson; Delfino Blanchard; Rob Leyva; Gerard Sagastume; Dash trevino; Dionne Truong; Danna Davis Hospital Stay Data Consultations 01/26/25 08:39 ED Decision to Admit Stat 01/26/25 10:57 Consult Cardiology Routine Diagnostic Imagining Performed 01/26/25 06:58 CT angio head wo/w Stat CT angio neck with con Stat Pending Results Patient Have Any Pending Studies at Discharge: No Discharge Instructions Given to Patient (Per Discharging Provider) Recommend no weight training until you followup with your Oil Analyst. Recommend no heavy strenuous activity in the short term until cleared by the cinder block mason. Will add lisinopril for blood pressure control. Some patient can develop a dry cough, if this occurs, please tell your regular doctor and they can switch it to a different family. Please return to the hosptial if you become dizzy, devlop chest pain, or shortness of breath. Coding Diagnoses Aortic stenosis, severe I35.0 Hypertension I10 COPD (chronic obstructive pulmonary disease) J44.9 Chronic sinusitis J32.9
--- NOTE | 2025-01-27 18:24 | Emergency Department Note ---
ED Visit Note I was consulted by the Advanced Practice Provider, Steve Pope. I performed a substantive portion of the visit. This includes aspects of: History: This is an 84-year-old male with a past medical history significant for aortic stenosis, COPD, GERD, hypertension and hyperlipidemia presenting to the emergency department further evaluation of vertiginous symptoms. Is also lightheaded and having issues with ambulatory status secondary to this. MDM: Given the age and comorbidities, CTAs were obtained on this patient for further evaluation of stroke. Symptoms could be related to aortic stenosis. Labs are independently interpreted by me as normal besides pseudohyponatremia in the setting of hyperglycemia. He has been hypertensive. Unclear etiology of his symptoms at this time as CTAs did not reveal a stroke. Do recommend that he stays as an inpatient given concerns for safety and ambulatory status. Patient was discussed with the hospitalist team and admitted. Richardson Kay DO Emergency Medicine .
== END 2025-01-27 13:54 | disposition home or self-care (01) | DRG 307 ==
LOC: SUATTDRO → ED 06:45 → 4W 09:32 → SUATTDRO 09:32 → 4W 10:23

== ENCOUNTER 2025-02-11 12:53 | Observation (INO) ==
[2025-02-11 13:34] LABS: Hematocrit (blood only) 40.1 % (42.0-52.0); Hemoglobin 14.0 g/dl (14.0-18.0); Immature Granulocytes # (auto) 0.01 K/uL (0.01-0.20); Immature Granulocytes % (auto) 0.2 %; Mean Corpuscular Hemoglobin 30.6 pg (25.0-34.0); Mean Corpuscular Volume 87.6 fL (80.0-100.0); Platelet Count 281 K/uL (130-400); RDW Standard Deviation 41.1 fL (36.4-46.3); Red Blood Count 4.58 M/uL (4.70-6.10); White Blood Count 6.51 K/ul (4.8-10.8)
--- NOTE | 2025-02-11 13:41 | Emergency Department Note ---
Impression & Plan Heart palpitations, Anxiety, Hyponatremia ED Provider Note CHIEF COMPLAINT: Heart palpitations HISTORY OF PRESENTING ILLNESS: Patient is an 84-year-old male presents to the emergency department today for complaints of heart palpitations. He reports he has been waking up at 3-4 AM and feeling his heart palpitations. He does have a significant history of anxiety and was recently prescribed Lexapro but only took it for a few days and discontinued it. He does have a history of aortic stenosis, COPD, pulmonary nodules. He was also placed on a steroid taper that he took for only a few days and stopped it abruptly as he felt that this may be causing some of his heart palpitations. Patient does follow closely with pulmonology and has an ENT referral for chronic inflammation and polyps of the nasal sinuses. He also was evaluated by cardiology as an inpatient and was scheduled for an outpatient follow-up but has not attended that yet. He currently denies any chest pain, shortness of breath, lightheadedness, dizziness, syncope, fevers/chills, headache. He denies any recent travel, recent surgeries, recent illness. He has a [id number] smoking history and had quit in his mid 30s. REVIEW OF SYSTEMS: See HPI for pertinent positives and pertinent negatives. ALLERGIES: See below MEDICATIONS: See below PAST MEDICAL HISTORY: See below PHYSICAL EXAM: VITALS: Vitals are noted on the nurse's note and reviewed by myself. Heart rate 86 and a normal sinus rhythm. Slightly hypertensive in triage. GENERAL: Non toxic, in no acute distress, non-diaphoretic. SKIN: Capillary refill <2 sec. EYES: PERRLA. EOMI. Conjunctivae without injection, sclerae without icterus. MOUTH: Mucous membranes moist. Uvula midline. Airway patent. NECK: Supple without nuchal rigidity. HEART: Regular rate and rhythm without murmurs gallops or rubs. LUNGS: Clear to auscultation bilaterally without wheezes, rales or rhonchi. No retractions or accessory muscle use. ABDOMEN: Positive bowel sounds x 4. Normal tympanic percussion. Soft, nontender to palpation. MUSCULOSKELETAL: No gross musculoskeletal defects. NEURO: Patient was alert and oriented. No focal neurological deficits. DIFFERENTIAL DIAGNOSIS: Differential diagnosis includes acute coronary syndrome, pulmonary embolism, pneumothorax, pericarditis, myocarditis, endocarditis, anxiety, musculoskeletal pain, GERD, costochondritis, pneumonia, among others. ED COURSE AND MEDICAL DECISION MAKING: HISTORY FROM INDEPENDENT HISTORIAN: History was provided by the patient and his who is at bedside and a secondary historian. MONITOR: Continuous health unit coordinator: Order was placed for continuous health unit coordinator. Patient was placed on the health unit coordinator and continuous pulse ox. Patient was noted to be in normal sinus rhythm at an initial rate of 80 bpm per my interpretation. EKG: EKG was interpreted by myself as normal sinus rhythm with a right bundle branch block at a rate of 68 bpm. INTERPRETATION OF LABS: I interpreted the labs with full lab results as below in the lab section of this note. Laboratory results pertinent to the emergent complaint are discussed in the MDM section below. The patient was advised to follow up with their PCP and/or specialist(s) for further outpatient monitoring and management of any abnormal results. INTERPRETATION OF IMAGING: Imaging studies were interpreted by myself and read by radiology as per the imaging section of this note. The patient was advised to follow up with their PCP and/or specialist(s) for further outpatient management of any non-emergent abnormal findings. CHRONIC MEDICAL/SOCIAL CONDITIONS AFFECTING CARE: No social concerns were identified as barriers to patients care. EXTERNAL RECORDS REVIEWED: Patient's pulmonology visit from 02/03/2025 related to changes in his medications, referral to ENT, anxiety, and treatment for COPD. I also reviewed the patient's emergency room visits from 02/09/2025 and 01/27/2025 related to similar symptoms as today's visit. I reviewed the results of the patient's inpatient echocardiogram from 01/01/2025. ESCALATION OF CARE CONSIDERED: I considered admission on this patient due to hyponatremia and persistent palpitations. CONSULTATIONS: I had a meaningful discussion about this patient with Dr. Khan who agrees with my assessment and the treatment plan. I also consulted with Dr. Villarreal, hospitalist for admission. Patient was accepted. SUMMARY: I examined the patient for complaints of heart palpitations. A physical exam and history were performed. Nursing notes, EMR, and medication list were personally reviewed. Patient declined the need for any pain medications or antiemetics in the emergency department today. CBC showed no leukocytosis, anemia, thrombocytopenia. CMP showed no emergent findings aside from a sodium of 129. Troponin was 4.5. PT/INR was normal. APTT was normal. TSH was 0.94. BNP was 44. Urinalysis showed negative for leukocytes, nitrites, blood, bacteria. Chest x-ray showed no acute findings. The patient's EKG does show improvement from his previous EKG. With a sodium of 129 and complaints of these persistent palpitations I did consult with Dr. Villarreal the hospitalist for admission. The patient was accepted. DIAGNOSIS: Hyponatremia, heart palpitations TREATMENT PLAN/DISCHARGE INSTRUCTIONS: Admit to hospitalist services The chart was completed utilizing [employer] Speech voice recognition software.Grammatical errors, random word insertions, pronoun errors, and incomplete sentences are an occasional consequence of this system due to software limitations, ambient noise, and hardware issues.Any formal questions or concerns about the content, text, or information contained within the body of this dictation should be directly addressed to the physician for clarification. Past Med/Surg History Problem List (Updated 02/12/25 @ 14:22 by MULU Harding) Heart palpitations (Acute) Hyponatremia (Acute) Heart palpitations Anxiety (Acute) Light-headedness (Acute) Anxiety Chronic sinusitis COPD (chronic obstructive pulmonary disease) Hypertension Aortic stenosis, severe Dizziness (Acute) Multiple pulmonary nodules Asthma-COPD overlap syndrome Nasal polyps (Chronic) Chronic sinusitis (Chronic) Antineutrophil cytoplasmic antibody (ANCA) positive Chronic rhinitis Moderate persistent asthma Eosinophilia Back pain Aortic stenosis (Acute) Hypertension (Chronic) Vitamin D deficiency (Chronic) Gastroesophageal reflux disease (Chronic) COPD (chronic obstructive pulmonary disease) (Chronic) Hypomagnesemia (Chronic) Medical History Chronic obstructive pulmonary disease DAILY AND PRN INH Acute respiratory failure with hypoxia Cervical radicular pain Heart murmur Grade 3/6 at right upper sternal border Prostate cancer S/p prostatectomy 2005 Surgical History History of cataract surgery Bilat 07/20/24 and 08/01/24. H/O right inguinal hernia repair (09/06/22) Right Inguinal Hernia Repair with Mesh(Right) - Clement Meadows DO History of laparotomy "TO FIX A PERFORATED ULCER ABOUT 20 YEARS AGO[place] [facility] [place] of [place]O prostatectomy 2006 [place] Family History Brother Prostate cancer Father Myocardial infarction Heart disease Mother Myocardial infarction Diabetes Denies family history of Colon cancer Ovarian cancer Breast cancer Social History Smoking Status: Former smoker Tobacco Type: Cigarettes Age Started Using Tobacco: 16; Age Quit Using Tobacco: 48; packs per day: 1; Second Hand Exposure: No; Do You Dip or Chew Tobacco: No; Hx Alcohol Use: Yes Alcohol type: wine Alcohol Intake Frequency: 4 or More x per/Week Hx Substance Use: No Preferred Language: Russian Communication Ability: Effective Visual Impairment: No Limitations Hearing Ability: Normal Burial Vault Maker Required: No Beliefs That Will Affect Care: None marital status: Current Living Situation: Spouse current occupational status: retired How many Children do You have: 4 Feels Safe at Home: Yes Childhood Exposure to Second-Hand Smoke: No Diet: regular Diet Comment: Mediterranean during the past year weight has: remained stable Dental Care, Regularly: Yes Physical Activity Frequency: 1-2 Times per Week Seatbelt Use: always Sunscreen Use: No Assistive Devices: None Allergies Allergies Allergy/AdvReac Type Severity Reaction Status Date / Time No Known Drug Allergies Allergy Verified 02/04/25 09:10 Home Meds Home Medications Medication Instructions Recorded Confirmed vitamin B complex 1 tab PO DAILY 12/01/23 02/11/25 cholecalciferol (vitamin D3) 25 25 mcg PO DAILY 12/19/24 02/11/25 mcg (1,000 unit) tablet (Vitamin D3) Previous Rx's Medication Instructions Recorded fluticasone fur. 100 mcg-umeclid 1 inh inhalation DAILY #60 ea 10/08/24 62.5 mcg-vilant 25 mcg inhalat.powder (Trelegy Ellipta) lisinopril 2.5 mg tablet 2.5 mg PO PM #30 tabs 01/27/25 hydroxyzine HCl 25 mg tablet 25 mg PO TID PRN anxiety #20 tabs 01/28/25 magnesium 250 mg tablet 250 mg PO HS #30 tabs 02/12/25 Results & Data (ED) Vital Signs Vital Signs - 24 hr 02/11/25 14:27 02/11/25 15:00 Pulse Rate 60 70 Pulse Rate from SpO2 Sensor 58 L 65 Respiratory Rate 18 12 Blood Pressure 149/79 H 156/84 H Blood Pressure Mean 102 108 Pulse Oximetry 91 99 Laboratory Data 02/11/25 13:15 02/12/25 05:55 Lab Results 02/11/25 02/11/25 02/11/25 Range/Units 13:15 14:11 15:34 WBC 6.51 (4.8-10.8) K/ul RBC 4.58 L (4.70-6.10) M/uL Hgb 14.0 (14.0-18.0) g/dl Hct 40.1 L (42.0-52.0) % MCV 87.6 (80.0-100.0) fL MCH 30.6 (25.0-34.0) pg MCHC 34.9 (32.0-36.0) g/dL RDW Std Deviation 41.1 (36.4-46.3) fL RDW Coeff of Mathew 13.0 (11.5-14.5) % Plt Count 281 (130-400) K/uL MPV 8.9 L (9.4-12.4) fL Immature Gran % (Auto) 0.2 % Neut % (Auto) 61.6 % Lymph % (Auto) 29.6 % Lyon % (Auto) 6.3 % Eos % (Auto) 1.5 % Baso % (Auto) 0.8 % Neut # (Auto) 4.01 (1.40-6.50) K/uL Lymph # (Auto) 1.93 (1.20-3.40) K/uL Lyon # (Auto) 0.41 (0.11-0.59) K/uL Eos # (Auto) 0.10 (0.00-0.50) K/uL Baso # (Auto) 0.05 (0.00-0.20) K/uL Immature Gran # (Auto) 0.01 (0.01-0.20) K/uL PT 11.4 (9.0-12.0) Seconds INR 1.1 (0.9-1.1) APTT 30 (21-31) Seconds PTT Ratio 1.1 Sodium 129 L (136-145) mmol/L Potassium 4.0 (3.5-5.1) mmol/L Chloride 96 L (98-107) mmol/L Carbon Dioxide 27 (21-32) mmol/L Anion Gap 6 (3-11) BUN 15 (6-23) mg/dl Creatinine 0.96 (0.6-1.4) mg/dl Est Cr Clr Drug Dosing 56.4 ml/min eGFR 76.98 BUN/Creatinine Ratio 15.6 (10-20) Glucose 107 H (70-99(Fasting)) mg/dl Calcium 9.3 (8.6-10.3) mg/dl Magnesium 1.7 (1.7-2.4) mg/dl Total Bilirubin 0.8 (0.2-1.0) mg/dl AST 16 (13-39) U/L ALT 15 (7-52) U/L Alkaline Phosphatase 63 (34-104) U/L Troponin I High Sens 4.5 (0-20) pg/ml B-Natriuretic Peptide 44 (0-100) pg/ml Total Protein 6.9 (6.0-8.3) gm/dl Albumin 4.2 (3.4-5.0) gm/dl Globulin 2.7 (2.5-4.0) gm/dl Albumin/Globulin Ratio 1.6 (0.9-2) Lipase 15 (11-82) U/L TSH 0.924 (0.300-4.500) uIu/ml Urine Osmolality 315 L (500-800) mOsm/kg Ur Random Sodium 47 mmol/L Administered Medications Discontinued Medications Enoxaparin Sodium (Enoxaparin Inj 40 Mg/0.4 Ml Syr) 40 mg SQ Q24H CHRISTINA Stop: 03/13/25 19:29 Last Admin: 02/11/25 21:09 Dose: 40 mg Documented By: CLC Fluticasone Furoate (Fluticasone Furoate 100mcg 14 Puffs/Inhaler) 1 puffs INH DAILY CHRISTINA Stop: 03/14/25 08:59 Last Admin: 02/12/25 08:08 Dose: 1 puffs Documented By: ES Sodium Chloride (Nss) 1,000 mls @ 999 mls/hr IV .Q1H1M ONE Stop: 02/11/25 14:57 Last Infusion: 02/11/25 15:27 Dose: Infused Documented By: Admin: 02/11/25 14:26 Dose: 999 mls/hr Documented By: ANT Magnesium Sulfate/Dextrose (Magnesium Sulfate / D5w) 1 gm in 100 mls @ 50 mls/hr IV ONE ONE Stop: 02/11/25 18:04 Last Infusion: 02/11/25 18:13 Dose: Infused Documented By: Admin: 02/11/25 16:12 Dose: 50 mls/hr Documented By: ELIZABETH Sodium Chloride (Nss) 500 mls @ 250 mls/hr IV .Q2H CHRISTINA Stop: 02/11/25 18:29 Last Infusion: 02/11/25 20:27 Dose: Infused Documented By: Admin: 02/11/25 17:24 Dose: 250 mls/hr Documented By: ELIZABETH Lisinopril (Lisinopril 2.5 Mg Tab) 2.5 mg PO PM CHRISTINA Stop: 03/13/25 20:59 Last Admin: 02/11/25 21:09 Dose: 2.5 mg Documented By: JENNIE Umeclidinium/Vilanterol (Umeclidinium/Vilanterol 62.5/25mcg 7 Puffs/Inhaler) 1 puffs INH DAILY CHRISTINA Stop: 03/14/25 08:59 Last Admin: 02/12/25 08:08 Dose: 1 puffs Documented By: LIZBETH Vitamin B Complex (Vitamin B Complex Tab) 1 tab PO DAILY CHRISTINA Stop: 03/14/25 08:59 Last Admin: 02/12/25 08:10 Dose: 1 tab Documented By: LIZBETH Vitamin D (Cholecalciferol 25 Mcg (1000 Units) Tab) 25 mcg PO DAILY CHRISTINA Stop: 03/14/25 08:59 Last Admin: 02/12/25 08:10 Dose: 25 mcg Documented By: ES Imaging Data Radiologist's Impression: Chest X-Ray 02/11/25 13:20 XR chest 2V PA/lateral CLINICAL HISTORY: Chest pain, nonspecific COMPARISON STUDY: 01/26/2025 FINDINGS: Heart size and pulmonary vasculature are normal. Stable hyperexpanded lungs. No consolidation or pleural effusion. No pneumothorax. IMPRESSION: No acute findings. ACT 112: Negative or not required by law. Electronically signed by: Kolby Woodson M.D. 02/11/2025 2:05 PM Discharge Plan Visit Data Chief Complaint: Tachycardia Stated Complaint: HEART PALPTATIONS ED Provider: Emory Khan ED Midlevel Provider: Lilian Rivera Discharge Problem: Heart palpitations, Anxiety, Hyponatremia Patient Disposition: Admitted As Inpatient Condition: Good Discharge Instructions Interventions: ED Discharge Assessment Last Done: 02/11/25 17:53 Addendum February 12, 2025 17:43 I was consulted by the Advanced Practice Provider and was substantively involved in the patient's visit.This includes aspects of the HPI, MDM, diagnostic interpretations, and disposition/plan. I discussed the case with the GABRIEL and agree with the findings and plan as documented in GABRIEL Rivera's note.
[2025-02-11 13:54] LABS: Alanine Aminotransferase 15.0 U/L (7-52); Albumin Globulin Ratio 1.6 (0.9-2); Albumin Level 4.2 gm/dl (3.4-5.0); Alkaline Phosphatase 63.0 U/L (34-104); Anion Gap 6.0 (3-11); Bilirubin,Total 0.8 mg/dl (0.2-1.0); Blood Urea Nitrogen 15.0 mg/dl (6-23); Calcium 9.3 mg/dl (8.6-10.3); Carbon Dioxide 27.0 mmol/L (21-32); Chloride 96.0 mmol/L (98-107); Creatinine Clr Calc Pharmacy 56.4 ml/min; Globulin 2.7 gm/dl (2.5-4.0); Glucose 107.0 mg/dl (70-99(Fasting)); Lipase 15.0 U/L (11-82); Magnesium 1.7 mg/dl (1.7-2.4); Potassium 4.0 mmol/L (3.5-5.1); Sodium 129.0 mmol/L (136-145); Total Protein 6.9 gm/dl (6.0-8.3)
--- NOTE | 2025-02-11 14:06 | XRay Report ---
XR chest 2V PA/lateral CLINICAL HISTORY: Chest pain, nonspecific COMPARISON STUDY: 01/26/2025 FINDINGS: Heart size and pulmonary vasculature are normal. Stable hyperexpanded lungs. No consolidati on or pleural effusion. No pneumothorax. IMPRESSION: No acute findings. ACT 112: Negative or not required by law. Electronically signed by: Kolby Woodson M.D. 02/11/2025 2:05 PM
[2025-02-11 14:08] LABS: Thyroid Stimulating Hormone 0.924 uIu/ml (0.300-4.500)
[2025-02-11 14:23] LABS: INR 1.1 (0.9-1.1); Partial Thromboplastin Time 30 Seconds (21-31); Prothrombin Time 11.4 Seconds (9.0-12.0)
[2025-02-11] MEDS: SODIUM CHLORIDE 0.9% 1,000 ML IV ONE (14:26)
--- NOTE | 2025-02-11 15:28 | Electrocardiogram Report ---
Test Reason : Blood Pressure : */* mmHG Vent. Rate : 68 BPM Atrial Rate : 68 BPM P-R Int : 182 ms QRS Dur : 134 ms QT Int : 406 ms P-R-T Axes : 77 13 32 degrees QTcB Int : 431 ms Normal sinus rhythm Right bundle branch block Abnormal ECG When compared with ECG of 09-Feb-2025 16:04, Criteria for Inferior infarct are no longer Present T wave inversion no longer evident in Inferior leads Confirmed by Subhash Gutierrez ([id number]) on 02/11/2025 3:28:23 PM Referred By: REFERRED SELF Confirmed By: Subhash Gutierrez
--- NOTE | 2025-02-11 15:57 | History & Physical Report ---
Date of Service February 11, 2025 Assessment & Plan (1) Heart palpitations: (2) Hyponatremia: (3) Anxiety: (4) Aortic stenosis, severe: Plan This patient is an 84-year-old male with a history of severe aortic stenosis, RBBB, COPD, chronic sinusitis and nasal polyps, pulmonary nodules, HTN, GERD/PUD, anxiety disorder, vitamin D deficiency, and prostate cancer s/p prostatectomy who presents to the ED for the second time in 3 days with heart palpitations. He reports he has been waking up at 3 or 4 in the morning feeling his heart pounding and it goes away with deep breathing. This overall has been going on for about 1-2 weeks and would last for about an hour. Last evening how ever, it went on for 3 or 4 hours and concerned him. He took his blood pressure which was 140/90 and his heart rate read as being in the 60s. He was recently started on Lexapro but only took it for a few days and then stopped it a few days ago. He was also recently placed on a steroid taper and again only took that for a few days but thought it was causing the heart palpitations. He denies any shortness of breath or chest pain, no lightheadedness, dizziness, passing out, fevers or chills or headache. In the ED, his ECG showed a normal sinus rhythm with right bundle branch block and his vital signs were otherwise normal. His sodium was low at 129 which was stable from 2 days prior but slightly lower than previous. He will be admitted for a workup for heart palpitations as well as hyponatremia. #Heart palpitations/severe aortic stenosis/HTN-could be an arrhythmia versus PVCs. Blood pressures are somewhat elevated here and heart rate is in the 50s and 60s. With known severe aortic stenosis but no need for referral for TAVR at this point as he has no angina, syncope, or heart failure. He is going to be following with cardiology as an outpatient. TSH normal - Admit to PCU for telemetry monitoring for arrhythmia - Keep electrolytes replete-give 1 g IV magnesium sulfate to optimize - No need to repeat echocardiogram at this point - If blood pressures remain elevated, may need to increase his lisinopril dose or add on metoprolol if has PVCs or tachyarrhythmia - Follow BMP and magnesium level in the morning #Hyponatremia-sodium 129 on 02/09 and again on admission 02/11. He typically runs on the lower side at 131-135. Urine osmolality is 315, and urine sodium is 47. TSH is normal, and no evidence of adrenal insufficiency. 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 He did recently start escitalopram but then discontinued it - Stopped escitalopram - Give 500 mL of normal saline and follow serial BMP this evening and again in the morning - Fluid restrict free water #Anxiety disorder-stop escitalopram for now and continue hydroxyzine as needed #COPD/pulmonary nodules/chronic sinusitis/nasal polyps-no acute issues, no wheezing on exam - Recently stopped steroids due to palpitations - Continue maintenance inhalers #GERD/PUD-has a history of partial gastrectomy for perforated ulcer remotely - No longer taking antacids it seems #Vitamin D deficiency-continue home vitamin D DVT prophylaxis-SQ Lovenox, SCDs Disposition-admit to PCU History of Present Illness Chief Complaint: Heart palpitations Primary Care Provider: Andre Buthcer, RAGHU, MULU This patient is an 84-year-old male with a history of severe aortic stenosis, RBBB, COPD, chronic sinusitis and nasal polyps, pulmonary nodules, HTN, GERD/PUD, anxiety disorder, vitamin D deficiency, and prostate cancer s/p prostatectomy who presents to the ED for the second time in 3 days with heart palpitations. He reports he has been waking up at 3 or 4 in the morning feeling his heart pounding and it goes away with deep breathing. This overall has been going on for about 1-2 weeks and would last for about an hour. Last evening however, it went on for 3 or 4 hours and concerned him. He took his blood pressure which was 140/90 and his heart rate read as being in the 60s. He was recently started on Lexapro but only took it for a few days and then stopped it a few days ago. He was also recently placed on a steroid taper and again only took that for a few days but thought it was causing the heart palpitations. He denies any shortness of breath or chest pain, no lightheadedness, dizziness, passing out, fevers or chills or headache. In the ED, his ECG showed a normal sinus rhythm with right bundle branch block and his vital signs were otherwise normal. His sodium was low at 129 which was stable from 2 days prior but slightly lower than previous. He will be admitted for a workup for heart palpitations as well as hyponatremia. Allergies Allergy/AdvReac Type Severity Reaction Status Date / Time No Known Drug Allergies Allergy Verified 02/04/25 09:10 Home Medications Medication Instructions Recorded Confirmed Type vitamin B complex 1 tab PO DAILY 12/01/23 02/11/25 History fluticasone fur. 100 mcg-umeclid 1 inh inhalation DAILY #60 ea 10/08/24 02/11/25 Rx 62.5 mcg-vilant 25 mcg inhalat.powder (Trelegy Ellipta) cholecalciferol (vitamin D3) 25 25 mcg PO DAILY 12/19/24 02/11/25 History mcg (1,000 unit) tablet (Vitamin D3) lisinopril 2.5 mg tablet 2.5 mg PO PM #30 tabs 01/27/25 02/11/25 Rx hydroxyzine HCl 25 mg tablet 25 mg PO TID PRN anxiety #20 tabs 01/28/25 02/11/25 Rx escitalopram oxalate 5 mg tablet 5 mg PO DAILY #30 tabs 02/04/25 02/11/25 Rx Past Med/Surg History Problem List (Updated 02/11/25 @ 16:04 by Carolyn Villarreal MD) Hyponatremia Heart palpitations Anxiety (Acute) Light-headedness (Acute) Anxiety Chronic sinusitis COPD (chronic obstructive pulmonary disease) Hypertension Aortic stenosis, severe Dizziness (Acute) Multiple pulmonary nodules Asthma-COPD overlap syndrome Nasal polyps (Chronic) Chronic sinusitis (Chronic) Antineutrophil cytoplasmic antibody (ANCA) positive Chronic rhinitis Moderate persistent asthma Eosinophilia Back pain Aortic stenosis (Acute) Hypertension (Chronic) Vitamin D deficiency (Chronic) Gastroesophageal reflux disease (Chronic) COPD (chronic obstructive pulmonary disease) (Chronic) Hypomagnesemia (Chronic) Medical History Chronic obstructive pulmonary disease DAILY AND PRN INH Acute respiratory failure with hypoxia Cervical radicular pain Heart murmur Grade 3/6 at right upper sternal border Prostate cancer S/p prostatectomy 2005 Surgical History History of cataract surgery Bilat 07/20/24 and 08/01/24. H/O right inguinal hernia repair (09/06/22) Right Inguinal Hernia Repair with Mesh(Right) - [facility], History of laparotomy "TO FIX A PERFORATED ULCER ABOUT 20 YEARS AGO", [facility] [place] Hx of colonoscopy H/O prostatectomy 2006 in [place] Family History Brother Prostate cancer Father Myocardial infarction Heart disease Mother Myocardial infarction Diabetes Denies family history of Colon cancer Ovarian cancer Breast cancer Social History Smoking Status: Former smoker Tobacco Type: Cigarettes Age Started Using Tobacco: 16; Age Quit Using Tobacco: 48; packs per day: 1; Second Hand Exposure: No; Do You Dip or Chew Tobacco: No; Hx Alcohol Use: Yes Alcohol type: wine Alcohol Intake Frequency: 4 or More x per/Week Hx Substance Use: No Preferred Language: Lao Communication Ability: Effective Visual Impairment: No Limitations Hearing Ability: Normal Code Official Required: No Beliefs That Will Affect Care: None marital status: Current Living Situation: Spouse current occupational status: retired How many Children do You have: 4 Feels Safe at Home: Yes Childhood Exposure to Second-Hand Smoke: No Diet: regular Diet Comment: Mediterranean during the past year weight has: remained stable Dental Care, Regularly: Yes Physical Activity Frequency: 1-2 Times per Week Seatbelt Use: always Sunscreen Use: No Assistive Devices: None Review of Systems 2 Review of Systems: All systems reviewed & are unremarkable except as noted in HPI & below Physical Exam Constitutional: WD/WN, vitals as above Eyes: PERRL, conjunctivae normal, anicteric sclerae ENMT: external ear and nose normal, oropharynx normal Neck: trachea midline, no thyromegaly Respiratory: normal respiratory effort, lungs clear to auscultation Cardiovascular: Rate/Rhythm: regular rate and regular rhythm Heart Sounds: + murmur (3/6 MARIA E at the RUSB) Extremities: no edema Chest (Breasts): Chest: normal inspection of chest Gastrointestinal (Abdomen): normal bowel sounds, soft, nontender, no hepatosplenomegaly Musculoskeletal: Extremities: extremities normal to inspection; no cyanosis and no clubbing Skin: no rashes, warm and dry Neurologic: moves all extremities and awake; no focal motor deficits Psychiatric: A+Ox3, euthymic affect Lymphatic: no lymphedema Results & Data Results & Data Vital Signs (Past 12 Hours) Vital Signs Temp Pulse Resp BP Pulse Ox O2 Del Method O2 Flow Rate 02/11/25 14:12 62 21 95 02/11/25 13:35 63 14 97 Room Air 02/11/25 13:35 97 Room Air 0 02/11/25 13:30 61 16 143/83 H 98 02/11/25 12:59 36.5 C 83 19 146/83 H 97 Room Air Laboratory Results CBC, CMP, PT/PTT/INR, magnesium, BNP, troponin, lipase, TSH, UA reviewed Diagnostic Findings CXR reviewed Chest X-Ray 02/11/25 13:20 XR chest 2V PA/lateral CLINICAL HISTORY: Chest pain, nonspecific COMPARISON STUDY: 01/26/2025 FINDINGS: Heart size and pulmonary vasculature are normal. Stable hyperexpanded lungs. No consolidation or pleural effusion. No pneumothorax. IMPRESSION: No acute findings. ECG Additional Comments: ECG on 02/11/2025 at 1307 with normal sinus rhythm, rate 68, RBBB, no acute ischemic changes, unchanged from previous Code Status & VTE Plan Code Status Full code VTE Prophylaxis Plan VTE Prophylaxis will be ordered: Yes PG Care Time/CCT Total # of Minutes Spent Total Time Spent with Patient: Total time spent is greater than 50% in coordination of care (as documented) at patient's floor/unit and/or counseling patient: Coding Level of Care Code 94914 INT INP/OBS CARE 3/75MIN Diagnoses Heart palpitations R00.2 Hyponatremia E87.1 Anxiety F41.9 Aortic stenosis, severe I35.0
[2025-02-11 16:03] LABS: Appearance Urine Clear (Clear); Glucose Urine UA Negative (Negative)
[2025-02-11] MEDS: MAGNESIUM SULFATE / D5W 1 GM/100 ML BAG IV ONE (16:12)
[2025-02-11] MEDS: SODIUM CHLORIDE 0.9% 500 ML IV SCH (17:24)
[2025-02-11] MEDS ORDERED: POLYETHYLENE (MIRALAX) 17 GM PACK PO PRN (18:11)
[2025-02-11] MEDS ORDERED: ONDANSETRON INJ 2 MG/ML 2 ML VIAL IV PRN (18:11)
[2025-02-11] MEDS ORDERED: ACETAMINOPHEN 325 MG TAB PO PRN (18:11)
[2025-02-11 20:07] LABS: Anion Gap 6.0 (3-11); Blood Urea Nitrogen 12.0 mg/dl (6-23); Calcium 8.9 mg/dl (8.6-10.3); Carbon Dioxide 27.0 mmol/L (21-32); Chloride 99.0 mmol/L (98-107); Creatinine Clr Calc Pharmacy 56.4 ml/min; Glucose 107.0 mg/dl (70-99(Fasting)); Potassium 3.7 mmol/L (3.5-5.1); Sodium 132.0 mmol/L (136-145)
[2025-02-11] MEDS: ENOXAPARIN INJ 40 MG/0.4 ML SYR SQ SCH (21:09)
[2025-02-12 00:07] LABS: Influenza A virus by PCR Negative (Neg); Influenza B virus by PCR Negative (Neg); SARS CoV2 RNA(COVID-19) Ceph NEGATIVE (Negative)
[2025-02-12 06:45] LABS: Anion Gap 4.0 (3-11); Blood Urea Nitrogen 12.0 mg/dl (6-23); Calcium 8.8 mg/dl (8.6-10.3); Carbon Dioxide 28.0 mmol/L (21-32); Chloride 103.0 mmol/L (98-107); Creatinine Clr Calc Pharmacy 54.3 ml/min; Glucose 88.0 mg/dl (70-99(Fasting)); Magnesium 1.9 mg/dl (1.7-2.4); Potassium 4.2 mmol/L (3.5-5.1); Sodium 135.0 mmol/L (136-145)
[2025-02-12] MEDS: FLUTICASONE FUROATE 100MCG 14 PUFFS/INHALER INH SCH (08:08)
[2025-02-12] MEDS: UMECLIDINIUM/VILANTEROL 62.5/25MCG 7 PUFFS/INHALER INH SCH (08:08)
[2025-02-12] MEDS: VITAMIN B COMPLEX TAB PO SCH (08:10)
[2025-02-12] MEDS: CHOLECALCIFEROL 25 MCG (1000 UNITS) TAB PO SCH (08:10)
[2025-02-12] MEDS ORDERED: NON-FORMULARY MEDICATION (Fluticasone-Umeclidin-Vilanter [Trelegy Ellipta] 100-62.5-25 mcg INH SCH (09:00)
[2025-02-12 11:28] VITALS: RESP 17; TEMP 98.1
[2025-02-12 11:39] VITALS: BP 136/82; O2SAT 97
--- NOTE | 2025-02-12 12:36 | Discharge Summary ---
Discharge Summary Date of Service February 12, 2025 Principal Dx & Hospital Course #1 = Principal Diagnosis (1) Heart palpitations: (2) Hyponatremia: (3) Anxiety: (4) Aortic stenosis, severe: Plan This patient is an 84-year-old male with a history of severe aortic stenosis, RBBB, COPD, chronic sinusitis and nasal polyps, pulmonary nodules, HTN, GERD/PUD, anxiety disorder, vitamin D deficiency, and prostate cancer s/p prostatectomy who presents to the ED for the second time in 3 days with heart palpitations. He reports he has been waking up at 3 or 4 in the morning feeling his heart pounding and it goes away with deep breathing. This overall has been going on for about 1-2 weeks and would last for about an hour. Last evening however, it went on for 3 or 4 hours and concerned him. He took his blood pressure which was 140/90 and his heart rate read as being in the 60s. He was recently started on Lexapro but only took it for a few days and then stopped it a few days ago. He was also recently placed on a steroid taper and again only took that for a few days but thought it was causing the heart palpitations. He denies any shortness of breath or chest pain, no lightheadedness, dizziness, passing out, fevers or chills or headache. In the ED, his ECG showed a normal sinus rhythm with right bundle branch block and his vital signs were otherwise normal. His sodium was low at 129 which was stable from 2 days prior but slightly lower than previous. He was admitted for a workup for heart palpitations as well as hyponatremia. #Heart palpitations/severe aortic stenosis/HTN-could be an arrhythmia versus PVCs. Blood pressures are somewhat elevated here and heart rate is in the 50s and 60s. With known severe aortic stenosis but no need for referral for TAVR at this point as he has no angina, syncope, or heart failure. He is going to be following with cardiology as an outpatient. TSH normal He was observed overnight and unfortunately did not have any recurrence of the heart palpitations while he was in the hospital. His telemetry showed only sinus bradycardia with rates in the 50s overnight and 70s during the day. He did not have any significant ectopy or arrhythmias. He was given 1 g of IV magnesium on admission for a low normal magnesium of 1.7 and his repeat magnesium on the day of discharge was 1.9 -Advised to take magnesium oxide 250 mg p.o. at bedtime on discharge - Will set up with a 4-week cardiac event monitor on discharge - No need to repeat echocardiogram at this point -Advised patient to return if he has worsening of his palpitations, associated shortness of breath, chest pain, or lightheadedness or passing out - He has cardiology follow-up already scheduled for 02/[address] Gutierrez who is aware of this current admission #Hyponatremia-sodium 129 on 02/09 and again on admission 02/11. He typically runs on the lower side at 131-135. Urine osmolality is 315, and urine sodium is 47. TSH is normal, and no evidence of adrenal insufficiency. 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 He did recently start escitalopram but then discontinued it. He was given 500 mL of normal saline and his sodium rocio to 135 on the day of discharge. - Stopped escitalopram permanently - Follow BMP as an outpatient #Anxiety disorder-stop escitalopram and continue hydroxyzine as needed #COPD/pulmonary nodules/chronic sinusitis/nasal polyps-no acute issues, no wheezing on exam - Recently stopped steroids due to palpitations - Continue maintenance inhalers #GERD/PUD-has a history of partial gastrectomy for perforated ulcer remotely - No longer taking antacids it seems #Vitamin D deficiency-continue home vitamin D DVT prophylaxis-SQ Lovenox, SCDs Disposition-stable for discharge to home Notes For Next Care Provider Setting up with 4-week cardiac event monitor Medication Changes From Visit Added magnesium oxide 250 mg p.o. at bedtime Discontinued escitalopram Admission HPI Per Admitting Provider This patient is an 84-year-old male with a history of severe aortic stenosis, RBBB, COPD, chronic sinusitis and nasal polyps, pulmonary nodules, HTN, GERD/PUD, anxiety disorder, vitamin D deficiency, and prostate cancer s/p prostatectomy who presents to the ED for the second time in 3 days with heart palpitations. He reports he has been waking up at 3 or 4 in the morning feeling his heart pounding and it goes away with deep breathing. This overall has been going on for about 1-2 weeks and would last for about an hour. Last evening however, it went on for 3 or 4 hours and concerned him. He took his blood pressure which was 140/90 and his heart rate read as being in the 60s. He was recently started on Lexapro but only took it for a few days and then stopped it a few days ago. He was also recently placed on a steroid taper and again only took that for a few days but thought it was causing the heart palpitations. He denies any shortness of breath or chest pain, no lightheadedness, dizziness, passing out, fevers or chills or headache. In the ED, his ECG showed a normal sinus rhythm with right bundle branch block and his vital signs were otherwise normal. His sodium was low at 129 which was stable from 2 days prior but slightly lower than previous. He will be admitted for a workup for heart palpitations as well as hyponatremia. Discharge Exam Constitutional WD/WN, vitals as above ENMT external ear and nose normal, oropharynx normal Neck trachea midline, no thyromegaly Respiratory normal respiratory effort, lungs clear to auscultation Cardiovascular Rate/Rhythm: regular rate and regular rhythm Heart Sounds: + murmur (3/6 MARIA E at the RUSB) Extremities: no edema Chest (Breasts) Chest: normal inspection of chest Gastrointestinal (Abdomen) normal bowel sounds, soft, nontender, no hepatosplenomegaly Musculoskeletal Extremities: extremities normal to inspection; no cyanosis and no clubbing Skin no rashes, warm and dry Neurologic moves all extremities and awake; no focal motor deficits Psychiatric A+Ox3, euthymic affect Lymphatic no lymphedema Discharge Plan Discharge Items Patient Disposition: Home - Self-Care Reason For Visit: HEART PALPTATIONS, HYPONATREMIA Discharge Diagnosis: Heart palpitations Hyponatremia Condition on Discharge: Good Activity: Resume your previous activity Non-emergency contact: Primary Care Provider and Pot Fireman Call non-emergency contact if: you have any medication questions and your symptoms worsen Follow-up/Referrals: Subhash Gutierrez MD [Physician] - 02/20/25 (Keep your appointment as scheduled on 02/[address] Gutierrez) Andre Butcher III, CRNP [Primary Care Provider] - 02/25/25 3:00 pm (Follow-up within 1-2 weeks Follow up scheduled on 02/25/25 at 3:00 with Shaniqua HARDWICK) Diet: Heart Healthy Addtl Attending Provider Instructions: You were admitted with heart palpitations. Unfortunately, you did not have a recurrence of this while you are hospitalized and no heart arrhythmias were seen on cardiac monitoring. Your magnesium was at the low end of normal and was replaced. You can take a magnesium oxide 250 mg supplement by mouth at bedtime upon discharge. This can be bought [id number] at the pharmacy. Please go to the [facility] cardiology office after discharge to grape picker a heart monitor to wear for the next 4 weeks to further evaluate for any cause of your heart palpitations. Please keep your follow-up appointment with Dr. Gutierrez of cardiology on 02/20. Your sodium level was low and this may have been as a side effect of taking the escitalopram for anxiety which is now stopped. It could also be from some mild dehydration as it did improve with giving you IV fluids. Please do not take the escitalopram moving forward and follow-up with your PCP. Pending Studies at Discharge: No Stand-Alone Forms: My [facility] Medications and DC Order Prescriptions: New magnesium 250 mg tablet 250 mg PO HS Qty: 30 0RF Rx Instructions: [id number] Continued hydroxyzine HCl 25 mg tablet 25 mg PO TID PRN (Reason: anxiety) Qty: 20 0RF Hold Instructions: Home Medication placed on hold at Doctor's office Marcos Ellipta 100-62.5-25 mcg blister with device 1 inh inhalation DAILY Qty: 60 9RF vitamin B complex Tablet 1 tab PO DAILY cholecalciferol (vitamin D3) [Vitamin D3] 25 mcg (1,000 unit) tablet 25 mcg PO DAILY lisinopril 2.5 mg tablet 2.5 mg PO PM Qty: 30 0RF Discontinued escitalopram oxalate 5 mg tablet 5 mg PO DAILY Qty: 30 2RF Discharge Orders: Discharge Order (Routine); Ordered 02/12/25 Ordered By: Carolyn Villarreal Admission Data Admit Date/Time: 02/11/25 16:21 Attending Provider: Carolyn Villarreal Admit Provider: Carolyn Villarreal Primary Care Provider: Andre Butcher III Other Providers: Carolyn Villarreal Hospital Stay Data Consultations 02/11/25 15:50 ED Decision to Admit Stat Pending Results Patient Have Any Pending Studies at Discharge: No Discharge Instructions Given to Patient (Per Discharging Provider) You were admitted with heart palpitations. Unfortunately, you did not have a recurrence of this while you are hospitalized and no heart arrhythmias were seen on cardiac monitoring. Your magnesium was at the low end of normal and was replaced. You can take a magnesium oxide 250 mg supplement by mouth at bedtime upon discharge. This can be bought [id number] at the pharmacy. Please go to the [facility] cardiology office after discharge to grape picker a heart monitor to wear for the next 4 weeks to further evaluate for any cause of your heart palpitations. Please keep your follow-up appointment with Dr. Gutierrez of cardiology on 02/20. Your sodium level was low and this may have been as a side effect of taking the escitalopram for anxiety which is now stopped. It could also be from some mild dehydration as it did improve with giving you IV fluids. Please do not take the escitalopram moving forward and follow-up with your PCP. Total Time Total Time Spent Total Time Spent (In Minutes): 35 minutes Total Time Includes: Examination of the Patient, Discharge Planning, Medication Reconciliation and Communication With Other Providers Coding Level of Care Code 96030 INP/OBS DISCH >30 MIN Diagnoses Heart palpitations R00.2 Hyponatremia E87.1 Anxiety F41.9 Aortic stenosis, severe I35.0
[2025-02-12 12:59] VITALS: PULSE 62
== END 2025-02-12 13:45 | disposition home or self-care (01) | DRG 309 ==
LOC: SUATTDRO → ED 12:53 → 2S 16:21 → INTOOBSV 16:21 → 2S 17:53